=== PATIENT | male | born 1940 | race Caucasian/White ===

== ENCOUNTER 2018-06-21 02:12 | Inpatient (IN) | payer MEDICARE, BC ==
[2018-06-21] MEDS: Sodium Chloride 0.9% 10 ML Syringe FLUSH PRN (02:30)
--- NOTE | 2018-06-21 02:32 | EDM.PDOC ---
ED HPI GENERAL MEDICAL PROBLEM - General Chief Complaint: General Stated Complaint: AMBULANCE-FALL Time Seen by Provider: 06/21/18 02:15 Source of Information: Reports: Patient, EMS, EMS Notes Reviewed, RN, RN Notes Reviewed History Limitations: Reports: No Limitations - History of Present Illness INITIAL COMMENTS - FREE TEXT/NARRATIVE: Pt to ER per [facility] with c/o falls at home. Patient states on Wednesday at midnight he fell and laid on the floor until noon on Wednesday. He states he was unable to move at all. He states when he got up he had a fever of 100.5. He states he aches all over, but no specific pain from the falls. Patient states he fell again tonight behind the rocking chair in his apartment. Patient states he has had a cough, admits to hx of lung CA. Denies N/V/D. Denies use of blood thinners. Onset: Gradual Onset Date: 06/18/18 Generalized Pain Score (Numeric/FACES): 4 - Related Data Allergies Allergy/AdvReac Type Severity Reaction Status Date / Time enalapril Allergy Cough Verified 06/21/18 02:35 strawberry Allergy Hives Verified 06/21/18 02:35 Home Meds: Home Meds Cyanocobalamin (Vitamin B-12) [Vitamin B-12] 1,000 mcg PO DAILY 05/14/18 [ History] Latanoprost/Pf [Latanoprost 0.005% Eye Drop] 7.5 ml EYEBOTH DAILY 05/14/18 [ History] Losartan [Cozaar] 50 mg PO BEDTIME 05/14/18 [History] Lovastatin 40 mg PO BEDTIME 05/14/18 [History] Metoprolol Succinate [Toprol XL 100mg] 100 mg PO DAILY 05/14/18 [History] Prochlorperazine [Compazine] 10 mg PO DAILY 05/14/18 [History] Pyridoxine HCl [Vitamin B-6] 100 mg PO DAILY 05/14/18 [History] glipiZIDE [Glucotrol] 10 mg PO BID 05/14/18 [History] metFORMIN HCl [Metformin HCl] 1,000 mg PO BID 05/14/18 [History] Past Medical History HEENT History: Reports: Glaucoma Cardiovascular History: Reports: High Cholesterol, Hypertension Respiratory History: Reports: COPD Gastrointestinal History: Reports: None Genitourinary History: Reports: BPH Musculoskeletal History: Reports: None Neurological History: Reports: None Psychiatric History: Reports: None Endocrine/Metabolic History: Reports: Diabetes, Type II Hematologic History: Reports: B12 Deficiency Immunologic History: Reports: Immunosuppression Oncologic (Cancer) History: Reports: Lung Dermatologic History: Reports: None - Infectious Disease History Infectious Disease History: Reports: None - Past Surgical History HEENT Surgical History: Reports: None Cardiovascular Surgical History: Reports: None Respiratory Surgical History: Reports: None GI Surgical History: Reports: None Male Surgical History: Reports: None Endocrine Surgical History: Reports: None Neurological Surgical History: Reports: None Musculoskeletal Surgical History: Reports: None Oncologic Surgical History: Reports: None Dermatological Surgical History: Reports: None Social & Family History - Family History Family Medical History: Noncontributory - Caffeine Use Caffeine Use: Reports: Coffee, Soda, Tea ED ROS GENERAL - Review of Systems Review Of Systems: ROS reveals no pertinent complaints other than HPI. ED EXAM, GENERAL - Physical Exam Exam: See Below Exam Limited By: No Limitations General Appearance: Alert, WD/WN, No Apparent Distress Eye Exam: Bilateral Eye: EOMI, Normal Inspection Ears: Normal External Exam, Hearing Grossly Normal Nose: Normal Inspection Throat/Mouth: Normal Inspection, Normal Voice, No Airway Compromise Head: Atraumatic, Normocephalic Neck: Normal Inspection, Supple, Non-Tender, Full Range of Motion Respiratory/Chest: No Respiratory Distress, Decreased Breath Sounds, Crackles, Rales, Rhonchi Cardiovascular: Normal Peripheral Pulses, Tachycardia Peripheral Pulses: 1+: Radial (L), Radial (R) GI/Abdominal: Normal Bowel Sounds, Soft, Non-Tender (Male) Exam: Deferred Rectal (Males) Exam: Deferred Back Exam: Normal Inspection, Full Range of Motion Extremities: Normal Inspection, Normal Range of Motion, Non-Tender, No Pedal Edema, Normal Capillary Refill Neurological: Alert, Oriented, CN II-XII Intact, Normal Cognition, Normal Reflexes, No Motor/Sensory Deficits Psychiatric: Normal Affect, Normal Mood Skin Exam: Warm, Dry, Intact, Normal Color, No Rash Lymphatic: No Adenopathy EKG INTERPRETATION EKG Date: 06/21/18 Time: 02:19 Rhythm: Other (sinus tachycardia) Rate (Beats/Min): 120 [place]: RAD-Right [place] Deviation P-Wave: Present QRS: Wide ST-T: Normal QT: Normal Comparison: NA - No Prior EKG Course - Vital Signs Last Recorded V/S: Last Vital Signs Temp 99 F 06/21/18 02:15 Pulse 119 H 06/21/18 02:15 Resp 23 H 06/21/18 02:15 BP 153/81 H 06/21/18 02:15 Pulse Ox 90 L 06/21/18 02:15 - Orders/Labs/Meds Orders: Active Orders 24 hr Category Date Time Status EKG Documentation Completion [RC] STAT Care 06/21/18 02:21 Active Oxygen Therapy, ED [RC] ASDIRECTED Care 06/21/18 02:22 Active Peripheral IV Care [RC] . DIRECTED Care 06/21/18 02:23 Active Chest 1V Frontal [CR] Stat Exams 06/21/18 02:22 Taken UA RFX VICTOR MANUEL AND CULT IF INDIC [URIN] Stat Lab 06/21/18 02:46 Ordered Levofloxacin/Dextrose 5%-Water [Levaquin in D5W 500 MG/ Med 06/21/18 03:41 Active 100 ML] 500 mg Premix Bag 1 bag IV ONETIME Sodium Chloride 0.9% [Normal Saline] 1,000 ml Med 06/21/18 03:38 Active IV .BOLUS Sodium Chloride 0.9% [Saline Flush] Med 06/21/18 02:20 Active 10 ml FLUSH ASDIRECTED PRN Peripheral IV Insertion Adult [OM.PC] Stat Oth 06/21/18 02:21 Ordered Medication Orders Sodium Chloride (Normal Saline) 1,000 mls @ 999 mls/hr IV .BOLUS ONE Stop: 06/21/18 04:38 Last Admin: 06/21/18 03:50 Dose: 999 mls/hr Levofloxacin/Dextrose 500 mg/ (Premix) 100 mls @ 100 mls/hr IV ONETIME ONE Stop: 06/21/18 04:40 Last Admin: 06/21/18 03:51 Dose: 100 mls/hr Sodium Chloride (Saline Flush) 10 ml FLUSH ASDIRECTED PRN PRN Reason: Keep Vein Open Last Admin: 06/21/18 02:30 Dose: 10 ml Labs: Laboratory Tests 06/21/18 06/21/18 06/21/18 Range/Units 02:22 02:22 02:22 WBC 7.3 (5.0-10.0) 10^3/uL RBC 3.97 L (4.6-6.2) 10^6/uL Hgb 12.4 L (14.0-18.0) g/dL Hct 37.5 L (40.0-54.0) % MCV 94.5 (80-100) fL MCH 31.2 (27.0-34.0) pg MCHC 33.1 (33.0-35.0) g/dL Plt Count 177 (150-450) 10^3/uL Neut % (Auto) 85.5 H (42.2-75.2) % Lymph % (Auto) 3.8 L (20.5-50.1) % [place] % (Auto) 8.8 H (2-8) % Eos % (Auto) 1.8 (1.0-3.0) % Baso % (Auto) 0.1 (0.0-1.0) % PT 9.8 (9.0-12.0) SEC INR 1.0 (0.9-1.2) Sodium 135 (135-145) mmol/L Potassium 3.7 (3.6-5.0) mmol/L Chloride 103 (101-111) mmol/L Carbon Dioxide 21.0 (21.0-31.0) mmol/L Anion Gap 14.7 BUN 13 (7-18) mg/dL Creatinine 0.7 (0.6-1.3) mg/dL Est Cr Clr Drug Dosing 83.94 mL/min Estimated GFR (MDRD) > 60 BUN/Creatinine Ratio 18.57 Glucose 104 (74-105) mg/dL Lactic Acid (0.5-2.2) mmol/L Calcium 8.7 (8.4-10.2) mg/dl Total Bilirubin 0.8 (0.2-1.0) mg/dL AST 36 (10-42) IU/L ALT 30 (10-60) IU/L Alkaline Phosphatase 57 (42-121) IU/L Creatine Kinase (26-174) IU/L Creatine Kinase Index (0-2.4) % CK-MB (CK-2) (0.4-4.7) ng/mL Troponin I < 0.02 (0.00-0.02) ng/ml Total Protein 7.2 (6.7-8.2) g/dl Albumin 3.7 (3.2-5.5) g/dl Globulin 3.5 Albumin/Globulin Ratio 1.06 06/21/18 06/21/18 Range/Units 02:22 02:22 WBC (5.0-10.0) 10^3/uL RBC (4.6-6.2) 10^6/uL Hgb (14.0-18.0) g/dL Hct (40.0-54.0) % MCV (80-100) fL MCH (27.0-34.0) pg MCHC (33.0-35.0) g/dL Plt Count (150-450) 10^3/uL Neut % (Auto) (42.2-75.2) % Lymph % (Auto) (20.5-50.1) % [place] % (Auto) (2-8) % Eos % (Auto) (1.0-3.0) % Baso % (Auto) (0.0-1.0) % PT (9.0-12.0) SEC INR (0.9-1.2) Sodium (135-145) mmol/L Potassium (3.6-5.0) mmol/L Chloride (101-111) mmol/L Carbon Dioxide (21.0-31.0) mmol/L Anion Gap BUN (7-18) mg/dL Creatinine (0.6-1.3) mg/dL Est Cr Clr Drug Dosing mL/min Estimated GFR (MDRD) BUN/Creatinine Ratio Glucose (74-105) mg/dL Lactic Acid 3.7 H (0.5-2.2) mmol/L Calcium (8.4-10.2) mg/dl Total Bilirubin (0.2-1.0) mg/dL AST (10-42) IU/L ALT (10-60) IU/L Alkaline Phosphatase (42-121) IU/L Creatine Kinase 27 (26-174) IU/L Creatine Kinase Index 5.6 H (0-2.4) % CK-MB (CK-2) 1.50 (0.4-4.7) ng/mL Troponin I (0.00-0.02) ng/ml Total Protein (6.7-8.2) g/dl Albumin (3.2-5.5) g/dl Globulin Albumin/Globulin Ratio Meds: Medications Generic Name Dose Route Start Last Admin Trade Name Freq PRN Reason Stop Dose Admin Sodium Chloride 1,000 mls @ 999 mls/hr 06/21/18 03:38 06/21/18 03:50 Normal Saline IV 06/21/18 04:38 999 mls/hr .BOLUS ONE Administration Levofloxacin/Dextrose 500 mg/ 100 mls @ 100 mls/hr 06/21/18 03:41 06/21/18 03 :51 Premix IV 06/21/18 04:40 100 mls/hr ONETIME ONE Administration Sodium Chloride 10 ml 06/21/18 02:20 06/21/18 02:30 Saline Flush FLUSH 10 ml ASDIRECTED PRN Administration Keep Vein Open - Radiology Interpretation Free Text/Narrative:: Chest xray: FINDINGS: Tubes, catheters and devices: A right-sided chest port is seen with tip in the SVC. Lungs: There is diffuse mild vascular congestion. There is mild airspace disease within the right medial base. Pleural space: Unremarkable. No pleural effusion. No pneumothorax. Heart/Mediastinum: The heart is mildly enlarged. Bones/joints: Unremarkable. IMPRESSION: 1. There is mild diffuse vascular congestion. There is mild atelectasis versus infiltrate within the medial right base. 2. Mild cardiomegaly. Thank you for allowing us to participate in the care of your patient. See rad report - Re-Assessments/Exams Free Text/Narrative Re-Assessment/Exam: 06/21/18 03:49 Patient case discussed with Dr. Montilla who agreed to come to the ER to evaluate the patient. Departure - Departure Time of Disposition: 04:17 Disposition: Admitted As Inpatient 67 Condition: Fair Clinical Impression: Hypoxemia Pneumonia Qualifiers: Pneumonia type: due to unspecified organism Laterality: right Lung location: unspecified part of lung Qualified Code(s): J18.9 - Pneumonia, unspecified organism Lung cancer Qualifiers: Laterality: unspecified laterality Lung location: unspecified part of lung Qualified Code(s): C34.90 - Malignant neoplasm of unspecified part of unspecified bronchus or lung - Discharge Information *PRESCRIPTION DRUG MONITORING PROGRAM REVIEWED*: No *COPY OF PRESCRIPTION DRUG MONITORING REPORT IN PATIENT ELLEN: No Forms: ED Department Discharge - My Orders Last 24 Hours: My Active Orders 06/21/18 02:20 Sodium Chloride 0.9% [Saline Flush] 10 ml FLUSH ASDIRECTED PRN 06/21/18 02:21 EKG Documentation Completion [RC] STAT Peripheral IV Insertion Adult [OM.PC] Stat 06/21/18 02:22 Oxygen Therapy, ED [RC] ASDIRECTED Chest 1V Frontal [CR] Stat 06/21/18 02:23 Peripheral IV Care [RC] . DIRECTED 06/21/18 02:46 UA RFX VICTOR MANUEL AND CULT IF INDIC [URIN] Stat 06/21/18 03:38 Sodium Chloride 0.9% [Normal Saline] 1,000 ml IV .BOLUS 06/21/18 03:41 Levofloxacin/Dextrose 5%-Water [Levaquin in D5W 500 MG/100 ML] 500 mg Premix Bag 1 bag IV ONETIME - Assessment/Plan Last 24 Hours: My Active Orders 06/21/18 02:20 Sodium Chloride 0.9% [Saline Flush] 10 ml FLUSH ASDIRECTED PRN 06/21/18 02:21 EKG Documentation Completion [RC] STAT Peripheral IV Insertion Adult [OM.PC] Stat 06/21/18 02:22 Oxygen Therapy, ED [RC] ASDIRECTED Chest 1V Frontal [CR] Stat 06/21/18 02:23 Peripheral IV Care [RC] . DIRECTED 06/21/18 02:46 UA RFX VICTOR MANUEL AND CULT IF INDIC [URIN] Stat 06/21/18 03:38 Sodium Chloride 0.9% [Normal Saline] 1,000 ml IV .BOLUS 06/21/18 03:41 Levofloxacin/Dextrose 5%-Water [Levaquin in D5W 500 MG/100 ML] 500 mg Premix Bag 1 bag IV ONETIME
[2018-06-21 02:54] LABS: ANION GAP 14.7; CHLORIDE,CL 103 mmol/L (101-111); SODIUM,NA 135 mmol/L (135-145)
[2018-06-21] MEDS ORDERED: Sodium Chloride 0.9% 1,000 ML IV ONE (03:38)
[2018-06-21] MEDS ORDERED: Levofloxacin/Dextrose 5%-Water 500 MG in Premix Bag 1 BAG IV ONE (03:41)
--- NOTE | 2018-06-21 04:33 | PCM.HP ---
H&P History of Present Illness - General Date of Service: 06/21/18 Admit Problem/Dx: Presumptive pneumonia, falls, weakness - History of Present Illness Initial Comments - Free Text/Narative: Mr. 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 Patient reports that he initially started feeling weak Wednesday evening prior to that he was in his usual strength. On Wednesday night, patient went to sleep, on who could not get out of bed until Wednesday noon. Patient also measured his temperature event, and it was slightly elevated at 100.6. Patient had a fall last night and was on the floor for a few hours prior to coming to the ED. Patient was unable to stand up. Patient was seen for oncology on 05/27/2018 started on prednisone taper for chronic cough. in the ED, patient was afebrile, hemodynamically stable but slightly tachycardic. He was also found to be hypoxic requiring. Supplemental oxygen. Chest x-ray showed mild diffuse vascular congestion with mild atelectasis versus infiltrate within the medial right base, mild cardiomegaly. EKG showed sinus tachycardia. Lab was remarkable for anemia, elevated lactic acid. There is given Levaquin and IV fluids and was sent for further care. Where that he has bilateral leg pain but denied any back pain that is changed from his baseline (patient has chronic low back). Also denied any loss of bladder control or loss of bowel control. Generalized Pain Score (Numeric/FACES): 4 - Related Data Allergies/Adverse Reactions: Allergies Allergy/AdvReac Type Severity Reaction Status Date / Time enalapril Allergy Cough Verified 06/21/18 02:35 strawberry Allergy Hives Verified 06/21/18 02:35 Home Medications: Home Meds Cyanocobalamin (Vitamin B-12) [Vitamin B-12] 1,000 mcg PO DAILY 05/14/18 [ History] Latanoprost/Pf [Latanoprost 0.005% Eye Drop] 7.5 ml EYEBOTH DAILY 05/14/18 [ History] Losartan [Cozaar] 50 mg PO BEDTIME 05/14/18 [History] Lovastatin 40 mg PO BEDTIME 05/14/18 [History] Metoprolol Succinate [Toprol XL 100mg] 100 mg PO DAILY 05/14/18 [History] Prochlorperazine [Compazine] 10 mg PO DAILY 05/14/18 [History] Pyridoxine HCl [Vitamin B-6] 100 mg PO DAILY 05/14/18 [History] glipiZIDE [Glucotrol] 10 mg PO BID 05/14/18 [History] metFORMIN HCl [Metformin HCl] 1,000 mg PO BID 05/14/18 [History] predniSONE [Prednisone] 10 mg PO DAILY 06/21/18 [History] Past Medical History HEENT History: Reports: Glaucoma Cardiovascular History: Reports: High Cholesterol, Hypertension Respiratory History: Reports: COPD Gastrointestinal History: Reports: None Genitourinary History: Reports: BPH Musculoskeletal History: Reports: None Neurological History: Reports: None Psychiatric History: Reports: None Endocrine/Metabolic History: Reports: Diabetes, Type II Hematologic History: Reports: B12 Deficiency Immunologic History: Reports: Immunosuppression Oncologic (Cancer) History: Reports: Lung Dermatologic History: Reports: None - Infectious Disease History Infectious Disease History: Reports: None - Past Surgical History HEENT Surgical History: Reports: None Cardiovascular Surgical History: Reports: None Respiratory Surgical History: Reports: None GI Surgical History: Reports: None Male Surgical History: Reports: None Endocrine Surgical History: Reports: None Neurological Surgical History: Reports: None Musculoskeletal Surgical History: Reports: None Oncologic Surgical History: Reports: None Dermatological Surgical History: Reports: None Social & Family History - Family History Family Medical History: Noncontributory - Tobacco Use Smoking Status *Q: Former Smoker Used Tobacco, but Quit: No - Caffeine Use Caffeine Use: Reports: Coffee, Soda, Tea - Recreational Drug Use Recreational Drug Use: No H&P Review of Systems - Review of Systems: Review Of Systems: See Below General: Reports: Fever, Weakness, Weight Loss. Denies: Chills, Night Sweats Pulmonary: Reports: Cough. Denies: Shortness of Breath, Pleuritic Chest Pain, Sputum Cardiovascular: Denies: Chest Pain, Palpitations, Edema, Syncope Gastrointestinal: Reports: No Symptoms Genitourinary: Reports: No Symptoms Musculoskeletal: Reports: Leg Pain (Bilateral) Neurological: Reports: Weakness Exam - Exam Exam: See Below - Vital Signs Vital Signs: Last Vital Signs Temp 37.2 C 06/21/18 02:15 Pulse 119 H 06/21/18 02:15 Resp 23 H 06/21/18 02:15 BP 153/81 H 06/21/18 02:15 Pulse Ox 90 L 06/21/18 02:15 Weight: 78.471 kg - Exam General: Alert, Oriented Lungs: Rales, Wheezing (Scattered,) Cardiovascular: Regular Rhythm, Normal S1, Normal S2, Tachycardia GI/Abdominal Exam: Normal Bowel Sounds, Soft, Non-Tender Neuro Extensive - Mental Status: Alert, Oriented x3 Neuro Extensive - Motor, Sensory, Reflexes: Other (His bilateral upper extremity 5 out of 5, 4 out of 5 for lower extremities) Psychiatric: Alert, Normal Affect, Normal Mood - Patient Data Lab Results Last 24 hrs: Laboratory Results - last 24 hr 06/21/18 06/21/18 06/21/18 Range/Units 02:22 02:22 02:22 WBC 7.3 (5.0-10.0) 10^3/uL RBC 3.97 L (4.6-6.2) 10^6/uL Hgb 12.4 L (14.0-18.0) g/dL Hct 37.5 L (40.0-54.0) % MCV 94.5 (80-100) fL MCH 31.2 (27.0-34.0) pg MCHC 33.1 (33.0-35.0) g/dL Plt Count 177 (150-450) 10^3/uL Neut % (Auto) 85.5 H (42.2-75.2) % Lymph % (Auto) 3.8 L (20.5-50.1) % [place] % (Auto) 8.8 H (2-8) % Eos % (Auto) 1.8 (1.0-3.0) % Baso % (Auto) 0.1 (0.0-1.0) % PT 9.8 (9.0-12.0) SEC INR 1.0 (0.9-1.2) Sodium 135 (135-145) mmol/L Potassium 3.7 (3.6-5.0) mmol/L Chloride 103 (101-111) mmol/L Carbon Dioxide 21.0 (21.0-31.0) mmol/L Anion Gap 14.7 BUN 13 (7-18) mg/dL Creatinine 0.7 (0.6-1.3) mg/dL Est Cr Clr Drug Dosing 83.94 mL/min Estimated GFR (MDRD) > 60 BUN/Creatinine Ratio 18.57 Glucose 104 (74-105) mg/dL Lactic Acid (0.5-2.2) mmol/L Calcium 8.7 (8.4-10.2) mg/dl Total Bilirubin 0.8 (0.2-1.0) mg/dL AST 36 (10-42) IU/L ALT 30 (10-60) IU/L Alkaline Phosphatase 57 (42-121) IU/L Creatine Kinase (26-174) IU/L Creatine Kinase Index (0-2.4) % CK-MB (CK-2) (0.4-4.7) ng/mL Troponin I < 0.02 (0.00-0.02) ng/ml Total Protein 7.2 (6.7-8.2) g/dl Albumin 3.7 (3.2-5.5) g/dl Globulin 3.5 Albumin/Globulin Ratio 1.06 06/21/18 06/21/18 Range/Units 02:22 02:22 WBC (5.0-10.0) 10^3/uL RBC (4.6-6.2) 10^6/uL Hgb (14.0-18.0) g/dL Hct (40.0-54.0) % MCV (80-100) fL MCH (27.0-34.0) pg MCHC (33.0-35.0) g/dL Plt Count (150-450) 10^3/uL Neut % (Auto) (42.2-75.2) % Lymph % (Auto) (20.5-50.1) % [place] % (Auto) (2-8) % Eos % (Auto) (1.0-3.0) % Baso % (Auto) (0.0-1.0) % PT (9.0-12.0) SEC INR (0.9-1.2) Sodium (135-145) mmol/L Potassium (3.6-5.0) mmol/L Chloride (101-111) mmol/L Carbon Dioxide (21.0-31.0) mmol/L Anion Gap BUN (7-18) mg/dL Creatinine (0.6-1.3) mg/dL Est Cr Clr Drug Dosing mL/min Estimated GFR (MDRD) BUN/Creatinine Ratio Glucose (74-105) mg/dL Lactic Acid 3.7 H (0.5-2.2) mmol/L Calcium (8.4-10.2) mg/dl Total Bilirubin (0.2-1.0) mg/dL AST (10-42) IU/L ALT (10-60) IU/L Alkaline Phosphatase (42-121) IU/L Creatine Kinase 27 (26-174) IU/L Creatine Kinase Index 5.6 H (0-2.4) % CK-MB (CK-2) 1.50 (0.4-4.7) ng/mL Troponin I (0.00-0.02) ng/ml Total Protein (6.7-8.2) g/dl Albumin (3.2-5.5) g/dl Globulin Albumin/Globulin Ratio Result Diagrams: 06/21/18 02:22 06/21/18 02:22 Jourdan Results Last 24 hrs: Microbiology 06/21/18 02:30 Influenza Type A Antigen Screen - Final Nasal, Unspecified NEGATIVE INFLUENZA A VIRUS AG Influenza Type B Antigen Screen - Final NEGATIVE INFLUENZA B VIRUS AG - Problem List (1) Non-small cell lung cancer SNOMED Code(s): 033090879 ICD Code: C34.90 - MALIGNANT NEOPLASM OF UNSP PART OF UNSP BRONCHUS OR LUNG Status: Acute Current Visit: Yes (2) Respiratory failure with hypoxia SNOMED Code(s): 62937171476879934 ICD Code: J96.91 - RESPIRATORY FAILURE, UNSPECIFIED WITH HYPOXIA Status: Acute Current Visit: Yes (3) Type 2 diabetes mellitus SNOMED Code(s): 13548112 ICD Code: E11.9 - TYPE 2 DIABETES MELLITUS WITHOUT COMPLICATIONS Status: Acute Current Visit: Yes (4) Hyperlipidemia SNOMED Code(s): 19173548 ICD Code: E78.5 - HYPERLIPIDEMIA, UNSPECIFIED Status: Acute Current Visit : Yes (5) Hypertension SNOMED Code(s): 55171731 ICD Code: I10 - ESSENTIAL (PRIMARY) HYPERTENSION Status: Acute Current Visit: Yes (6) Pneumonia SNOMED Code(s): 802701564 ICD Code: J18.9 - PNEUMONIA, UNSPECIFIED ORGANISM Status: Acute Current Visit: No Qualifiers: Pneumonia type: due to unspecified organism Laterality: right Lung location: unspecified part of lung Qualified Code(s): J18.9 - Pneumonia, unspecified organism Problem List Initiated/Reviewed/Updated: Yes Orders Last 24hrs: Active Orders 24 hr Category Date Time Status EKG Documentation Completion [RC] STAT Care 06/21/18 02:21 Active Oxygen Therapy, ED [RC] ASDIRECTED Care 06/21/18 02:22 Active Peripheral IV Care [RC] . DIRECTED Care 06/21/18 02:23 Active Chest 1V Frontal [CR] Stat Exams 06/21/18 02:22 Taken UA RFX JOURDAN AND CULT IF INDIC [URIN] Stat Lab 06/21/18 02:46 Ordered Levofloxacin/Dextrose 5%-Water [Levaquin in D5W 500 MG/ Med 06/21/18 03:41 Active 100 ML] 500 mg Premix Bag 1 bag IV ONETIME Sodium Chloride 0.9% [Normal Saline] 1,000 ml Med 06/21/18 03:38 Active IV .BOLUS Sodium Chloride 0.9% [Saline Flush] Med 06/21/18 02:20 Active 10 ml FLUSH ASDIRECTED PRN Peripheral IV Insertion Adult [OM.PC] Stat Oth 06/21/18 02:21 Ordered Medication Orders Sodium Chloride (Normal Saline) 1,000 mls @ 999 mls/hr IV .BOLUS ONE Stop: 06/21/18 04:38 Last Admin: 06/21/18 03:50 Dose: 999 mls/hr Levofloxacin/Dextrose 500 mg/ (Premix) 100 mls @ 100 mls/hr IV ONETIME ONE Stop: 06/21/18 04:40 Last Admin: 06/21/18 03:51 Dose: 100 mls/hr Sodium Chloride (Saline Flush) 10 ml FLUSH ASDIRECTED PRN PRN Reason: Keep Vein Open Last Admin: 06/21/18 02:30 Dose: 10 ml Assessment/Plan Comment:: Mr. 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 Presumptive pneumonia will treat patient course of Levaquin Continue prednisone taper as is Hypoxic respiratory failure Could be related to pneumonia/cancer We'll place patient on supplemental oxygen Fall PT/OT Type 2 diabetes Sliding-scale insulin Hold oral hypoglycemic agents glucose checks before meals and at bedtime Hyperlipidemia Continue home lovastatin Hypertension Continue home medications Lactic acidosis Could be related to dehydration versus sepsis though sepsis is less likely given lack of hemodynamic instability or elevated white count We'll recheck after hydration DVT prophylaxis Lovenox subcutaneous
[2018-06-21] MEDS ORDERED: Lactated Ringers 1,000 ML IV SCH (05:15)
[2018-06-21] MEDS ORDERED: Insulin Aspart 100 Units/ML 3 ML Pen SUBCUT SCH (08:00)
[2018-06-21 08:31] LABS: ANION GAP 14.6; CHLORIDE,CL 103 mmol/L (101-111); SODIUM,NA 134 mmol/L (135-145)
[2018-06-21] MEDS: Vitamin B6-pyridOXINE 100 MG Tab PO SCH (08:49)
[2018-06-21] MEDS: predniSONE 10 MG Tab PO SCH (08:49)
[2018-06-21] MEDS: Metoprolol Succinate 50 MG Tab.ER PO SCH (08:49)
[2018-06-21] MEDS: Enoxaparin 40 MG/0.4 ML Syringe SUBCUT SCH (08:50)
[2018-06-21] MEDS ORDERED: Cyanocobalamin (Vitamin B12) 100 MCG Tab PO SCH (09:00)
[2018-06-21] MEDS: Insulin Lispro 100 Units/ML 3 ML Vial SUBCUT SCH ×4 (09:39→20:56)
[2018-06-21] MEDS: LOVASTATIN 40 MG PO SCH (18:29)
[2018-06-21] MEDS: Latanoprost 0.005% Ophth Soln 2.5 ML Bottle EYEBOTH SCH (20:58)
[2018-06-21] MEDS: Losartan 50 MG Tab PO SCH (21:31)
[2018-06-22] MEDS ORDERED: Acetaminophen 325 MG Tab PO PRN (03:20)
[2018-06-22] MEDS ORDERED: Levofloxacin/Dextrose 5%-Water 750 MG in Premix Bag 1 BAG IV SCH (07:00)
[2018-06-22 07:28] LABS: ANION GAP 14.8; CHLORIDE,CL 101 mmol/L (101-111); SODIUM,NA 135 mmol/L (135-145)
[2018-06-22] MEDS: Levofloxacin/Dextrose 5%-Water 750 MG in Premix Bag 1 BAG IV SCH (08:04)
[2018-06-22] MEDS: Sodium Chloride 0.9% 10 ML Syringe FLUSH PRN ×2 (08:08→15:35)
[2018-06-22] MEDS: Insulin Lispro 100 Units/ML 3 ML Vial SUBCUT SCH ×4 (08:56→21:23)
[2018-06-22] MEDS: predniSONE 10 MG Tab PO SCH (08:57)
[2018-06-22] MEDS: Metoprolol Succinate 50 MG Tab.ER PO SCH (08:57)
[2018-06-22] MEDS: Vitamin B6-pyridOXINE 100 MG Tab PO SCH (08:57)
[2018-06-22] MEDS: Enoxaparin 40 MG/0.4 ML Syringe SUBCUT SCH (08:58)
[2018-06-22] MEDS: CYANOCOBALAMIN 1000 MCG PO SCH (08:59)
--- NOTE | 2018-06-22 10:16 | PCM.PN ---
- General Info Date of Service: 06/22/18 Admission Dx/Problem (Free Text): Presumptive pneumonia, falls, weakness Subjective Update: The patient was walking with therapy, and he became more hypoxic requiring increase in supplemental oxygen to 3 L. Patient does not require oxygen at baseline. He also took long time to recover. On interview, patient denying worsening cough, change in bowel habits or urinary habits. He can't recall any sudden increase in shortness of breath recently. He denies any pain. Patient will need to like to take a break from chemotherapy. - Review of Systems Pulmonary: Reports: Shortness of Breath, Cough Cardiovascular: Reports: No Symptoms Gastrointestinal: Reports: No Symptoms Genitourinary: Reports: No Symptoms Musculoskeletal: Reports: No Symptoms Neurological: Reports: No Symptoms - Patient Data Vitals - Most Recent: Last Vital Signs Temp 37.0 C 06/22/18 04:00 Pulse 68 06/22/18 08:57 Resp 20 06/22/18 08:00 BP 125/61 06/22/18 08:57 Pulse Ox 91 L 06/22/18 08:00 Weight - Most Recent: 78.29 kg I&O - Last 24 Hours: Intake & Output 06/21/18 06/22/18 06/22/18 22:59 06:59 14:59 Intake Total 1860 250 710 Output Total 1200 Balance 660 250 710 Lab Results Last 24 Hours: Laboratory Results - last 24 hr 06/21/18 06/21/18 06/21/18 Range/Units 07:44 10:59 11:00 WBC (5.0-10.0) 10^3/uL RBC (4.6-6.2) 10^6/uL Hgb (14.0-18.0) g/dL Hct (40.0-54.0) % MCV (80-100) fL MCH (27.0-34.0) pg MCHC (33.0-35.0) g/dL Plt Count (150-450) 10^3/uL Neut % (Auto) (42.2-75.2) % Lymph % (Auto) (20.5-50.1) % [place] % (Auto) (2-8) % Eos % (Auto) (1.0-3.0) % Baso % (Auto) (0.0-1.0) % Sodium (135-145) mmol/L Potassium (3.6-5.0) mmol/L Chloride (101-111) mmol/L Carbon Dioxide (21.0-31.0) mmol/L Anion Gap BUN (7-18) mg/dL Creatinine (0.6-1.3) mg/dL Est Cr Clr Drug Dosing mL/min Estimated GFR (MDRD) BUN/Creatinine Ratio Glucose (74-105) mg/dL POC Glucose 173 H 175 H (83-110) mg/dl Calcium (8.4-10.2) mg/dl Total Bilirubin (0.2-1.0) mg/dL AST (10-42) IU/L ALT (10-60) IU/L Alkaline Phosphatase (42-121) IU/L Total Protein (6.7-8.2) g/dl Albumin (3.2-5.5) g/dl Globulin Albumin/Globulin Ratio Urine Color Yellow (YELLOW) Urine Appearance Clear (CLEAR) Urine pH 5.5 (5.0-9.0) Ur Specific [place] 1.015 (1.005-1.030) Urine Protein Negative (NEGATIVE) Urine Glucose (UA) 100 H (NEGATIVE) Urine Ketones Negative (NEGATIVE) Urine Occult Blood Negative (NEGATIVE) Urine Nitrite Negative (NEGATIVE) Urine Bilirubin Negative (NEGATIVE) Urine Urobilinogen 1.0 (0.2-1.0) mg/dL Ur Leukocyte Esterase Negative (NEGATIVE) 06/21/18 06/21/18 06/22/18 Range/Units 16:34 20:55 06:55 WBC 5.0 (5.0-10.0) 10^3/uL RBC 3.60 L (4.6-6.2) 10^6/uL Hgb 11.0 L (14.0-18.0) g/dL Hct 33.8 L (40.0-54.0) % MCV 93.9 (80-100) fL MCH 30.6 (27.0-34.0) pg MCHC 32.5 L (33.0-35.0) g/dL Plt Count 203 (150-450) 10^3/uL Neut % (Auto) 79.2 H (42.2-75.2) % Lymph % (Auto) 6.3 L (20.5-50.1) % [place] % (Auto) 11.7 H (2-8) % Eos % (Auto) 2.4 (1.0-3.0) % Baso % (Auto) 0.4 (0.0-1.0) % Sodium (135-145) mmol/L Potassium (3.6-5.0) mmol/L Chloride (101-111) mmol/L Carbon Dioxide (21.0-31.0) mmol/L Anion Gap BUN (7-18) mg/dL Creatinine (0.6-1.3) mg/dL Est Cr Clr Drug Dosing mL/min Estimated GFR (MDRD) BUN/Creatinine Ratio Glucose (74-105) mg/dL POC Glucose 212 H 149 H (83-110) mg/dl Calcium (8.4-10.2) mg/dl Total Bilirubin (0.2-1.0) mg/dL AST (10-42) IU/L ALT (10-60) IU/L Alkaline Phosphatase (42-121) IU/L Total Protein (6.7-8.2) g/dl Albumin (3.2-5.5) g/dl Globulin Albumin/Globulin Ratio Urine Color (YELLOW) Urine Appearance (CLEAR) Urine pH (5.0-9.0) Ur Specific [place] (1.005-1.030) Urine Protein (NEGATIVE) Urine Glucose (UA) (NEGATIVE) Urine Ketones (NEGATIVE) Urine Occult Blood (NEGATIVE) Urine Nitrite (NEGATIVE) Urine Bilirubin (NEGATIVE) Urine Urobilinogen (0.2-1.0) mg/dL Ur Leukocyte Esterase (NEGATIVE) 06/22/18 06/22/18 Range/Units 06:55 07:56 WBC (5.0-10.0) 10^3/uL RBC (4.6-6.2) 10^6/uL Hgb (14.0-18.0) g/dL Hct (40.0-54.0) % MCV (80-100) fL MCH (27.0-34.0) pg MCHC (33.0-35.0) g/dL Plt Count (150-450) 10^3/uL Neut % (Auto) (42.2-75.2) % Lymph % (Auto) (20.5-50.1) % [place] % (Auto) (2-8) % Eos % (Auto) (1.0-3.0) % Baso % (Auto) (0.0-1.0) % Sodium 135 (135-145) mmol/L Potassium 3.8 (3.6-5.0) mmol/L Chloride 101 (101-111) mmol/L Carbon Dioxide 23.0 (21.0-31.0) mmol/L Anion Gap 14.8 BUN 10 (7-18) mg/dL Creatinine 0.5 L (0.6-1.3) mg/dL Est Cr Clr Drug Dosing 117.51 mL/min Estimated GFR (MDRD) > 60 BUN/Creatinine Ratio 20.00 Glucose 184 H (74-105) mg/dL POC Glucose 180 H (83-110) mg/dl Calcium 8.4 (8.4-10.2) mg/dl Total Bilirubin 1.0 (0.2-1.0) mg/dL AST 28 (10-42) IU/L ALT 25 (10-60) IU/L Alkaline Phosphatase 48 (42-121) IU/L Total Protein 6.4 L (6.7-8.2) g/dl Albumin 3.2 (3.2-5.5) g/dl Globulin 3.2 Albumin/Globulin Ratio 1.00 Urine Color (YELLOW) Urine Appearance (CLEAR) Urine pH (5.0-9.0) Ur Specific [place] (1.005-1.030) Urine Protein (NEGATIVE) Urine Glucose (UA) (NEGATIVE) Urine Ketones (NEGATIVE) Urine Occult Blood (NEGATIVE) Urine Nitrite (NEGATIVE) Urine Bilirubin (NEGATIVE) Urine Urobilinogen (0.2-1.0) mg/dL Ur Leukocyte Esterase (NEGATIVE) Med Orders - Current: Current Medications Acetaminophen (Tylenol) 650 mg PO Q6H PRN PRN Reason: Pain Last Admin: 06/22/18 03:41 Dose: 650 mg Enoxaparin Sodium (Lovenox) 40 mg SUBCUT DAILY [facility] Last Admin: 06/22/18 08:58 Dose: 40 mg Levofloxacin/Dextrose 750 mg/ (Premix) 150 mls @ 100 mls/hr IV Q24H [facility] Last Infusion: 06/22/18 10:04 Dose: Infused Insulin Human Lispro (Humalog) 0 unit SUBCUT WITHMEALSANDBED [facility]; Protocol Last Admin: 06/22/18 08:56 Dose: 1 unit Latanoprost (Xalatan 0.005% Ophth Soln) 0 ml EYEBOTH BEDTIME [facility] Last Admin: 06/21/18 20:58 Dose: 1 drop Losartan Potassium (Cozaar) 50 mg PO BEDTIME [facility] Last Admin: 06/21/18 21:31 Dose: Not Given Metoprolol Succinate (Toprol Xl) 100 mg PO DAILY [facility] Last Admin: 06/22/18 08:57 Dose: 100 mg Lovastatin 40 Mg (Pt's Own Med) 0 each PO WITHDINNER [facility] Last Admin: 06/21/18 18:29 Dose: 1 each Cyanocobalamin ( Vitamin B12) 1000 Mcg Tab Pt's Own Med 0 each PO DAILY [facility] Last Admin: 06/22/18 08:59 Dose: 1 each Prednisone (Prednisone) 10 mg PO DAILY [facility] Last Admin: 06/22/18 08:57 Dose: 10 mg Pyridoxine HCl (Vitamin B6-Pyridoxine) 100 mg PO DAILY [facility] Last Admin: 06/22/18 08:57 Dose: 100 mg Sodium Chloride (Saline Flush) 10 ml FLUSH ASDIRECTED PRN PRN Reason: Keep Vein Open Last Admin: 06/22/18 08:08 Dose: 10 ml Discontinued Medications Cyanocobalamin (Vitamin B12) 1,000 mcg PO DAILY [facility] Last Admin: 06/21/18 09:03 Dose: Not Given Sodium Chloride (Normal Saline) 1,000 mls @ 999 mls/hr IV .BOLUS ONE Stop: 06/21/18 04:38 Last Admin: 06/21/18 03:50 Dose: 999 mls/hr Levofloxacin/Dextrose 500 mg/ (Premix) 100 mls @ 100 mls/hr IV ONETIME ONE Stop: 06/21/18 04:40 Last Admin: 06/21/18 03:51 Dose: 100 mls/hr Lactated Ringer's (Ringers, Lactated) 1,000 mls @ 100 mls/hr IV ASDIRECTED [facility] Last Admin: 06/21/18 05:20 Dose: 100 mls/hr Levofloxacin/Dextrose 750 mg/ (Premix) 150 mls @ 100 mls/hr IV Q24H [facility] Insulin Aspart (Novolog) 0 unit SUBCUT WITHMEALSANDBED [facility]; Protocol Last Admin: 06/21/18 09:02 Dose: Not Given - Exam General: Alert, Oriented Lungs: Normal Respiratory Effort, Rales, Other (tachypneic) Cardiovascular: Regular Rate, Regular Rhythm GI/Abdominal Exam: Normal Bowel Sounds, Soft, Non-Tender Extremities: No Pedal Edema Skin: Warm, Dry, Intact Neurological: No New Focal Deficit - Problem List & Annotations (1) Non-small cell lung cancer SNOMED Code(s): 894617037 Code(s): C34.90 - MALIGNANT NEOPLASM OF UNSP PART OF UNSP BRONCHUS OR LUNG Status: Acute Current Visit: Yes (2) Respiratory failure with hypoxia SNOMED Code(s): 97362091934326337 Code(s): J96.91 - RESPIRATORY FAILURE, UNSPECIFIED WITH HYPOXIA Status: Acute Current Visit: Yes (3) Type 2 diabetes mellitus SNOMED Code(s): 90400903 Code(s): E11.9 - TYPE 2 DIABETES MELLITUS WITHOUT COMPLICATIONS Status: Acute Current Visit: Yes (4) Hyperlipidemia SNOMED Code(s): 35035279 Code(s): E78.5 - HYPERLIPIDEMIA, UNSPECIFIED Status: Acute Current Visit : Yes (5) Hypertension SNOMED Code(s): 24955100 Code(s): I10 - ESSENTIAL (PRIMARY) HYPERTENSION Status: Acute Current Visit: Yes (6) Pneumonia SNOMED Code(s): 393140904 Code(s): J18.9 - PNEUMONIA, UNSPECIFIED ORGANISM Status: Acute Current Visit: No Qualifiers: Pneumonia type: due to unspecified organism Laterality: right Lung location: unspecified part of lung Qualified Code(s): J18.9 - Pneumonia, unspecified organism - Problem List Review Problem List Initiated/Reviewed/Updated: Yes - My Orders Last 24 Hours: My Active Orders 06/21/18 11:27 Incentive Spirometry [RT Incentive Spirometry] [RC] Q2HWA 06/21/18 11:32 Communication Order [RC] DAILY 06/21/18 15:06 Patient's Own Medication [Ptom] 0 each PO DAILY 06/21/18 18:00 Patient's Own Medication [Ptom] 0 each PO WITHDINNER 06/21/18 21:00 Latanoprost [Xalatan 0.005% Ophth Soln] 0 ml EYEBOTH BEDTIME Losartan [Cozaar] 50 mg PO BEDTIME 06/22/18 03:20 Acetaminophen [Tylenol] 650 mg PO Q6H PRN 06/22/18 08:00 Levofloxacin/Dextrose 5%-Water [Levaquin in D5W 750 MG/150 ML] 750 mg Premix Bag 1 bag IV Q24H 06/23/18 07:00 CBC WITH AUTO DIFF [HEME] DAILY COMPREHENSIVE METABOLIC PN,CMP [CHEM] DAILY 06/24/18 07:00 CBC WITH AUTO DIFF [HEME] DAILY COMPREHENSIVE METABOLIC PN,CMP [CHEM] DAILY 06/25/18 07:00 CBC WITH AUTO DIFF [HEME] DAILY COMPREHENSIVE METABOLIC PN,CMP [CHEM] DAILY - Plan Plan:: Mr. 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 Presumptive pneumonia will treat patient course of Levaquin Continue prednisone taper as is Hypoxic respiratory failure Could be related to pneumonia/cancer We'll place patient on supplemental oxygen will check for PE Fall PT/OT Type 2 diabetes Sliding-scale insulin Hold oral hypoglycemic agents glucose checks before meals and at bedtime Hyperlipidemia Continue home lovastatin Hypertension Continue home medications Lactic acidosis resolved DVT prophylaxis Lovenox subcutaneous
[2018-06-22] MEDS ORDERED: Iopamidol 755 Mg/ML 100 ML Bottle IVPUSH ONE (12:35)
[2018-06-22] MEDS ORDERED: Potassium Chloride 10 MEQ Tab.ER PO ONE (14:43)
[2018-06-22] MEDS ORDERED: Furosemide 40 MG/4 ML VIAL IVPUSH ONE (15:00)
[2018-06-22] MEDS: LOVASTATIN 40 MG PO SCH (17:43)
[2018-06-22] MEDS: Losartan 50 MG Tab PO SCH (21:13)
[2018-06-22] MEDS: Latanoprost 0.005% Ophth Soln 2.5 ML Bottle EYEBOTH SCH (21:13)
[2018-06-23 07:59] LABS: ANION GAP 15.2; CHLORIDE,CL 100 mmol/L (101-111); SODIUM,NA 135 mmol/L (135-145)
[2018-06-23] MEDS: predniSONE 10 MG Tab PO SCH (08:26)
[2018-06-23] MEDS: Metoprolol Succinate 50 MG Tab.ER PO SCH (08:27)
[2018-06-23] MEDS: Vitamin B6-pyridOXINE 100 MG Tab PO SCH (08:28)
[2018-06-23] MEDS: CYANOCOBALAMIN 1000 MCG PO SCH (08:28)
[2018-06-23] MEDS: Enoxaparin 40 MG/0.4 ML Syringe SUBCUT SCH (08:29)
[2018-06-23] MEDS: Insulin Lispro 100 Units/ML 3 ML Vial SUBCUT SCH ×4 (08:30→22:29)
[2018-06-23] MEDS: Levofloxacin/Dextrose 5%-Water 750 MG in Premix Bag 1 BAG IV SCH (08:32)
--- NOTE | 2018-06-23 11:15 | PCM.PN ---
- General Info Date of Service: 06/23/18 Admission Dx/Problem (Free Text): Presumptive pneumonia, falls, weakness Subjective Update: Patient seen and examined today at the site. He has no complaint today. No acute appointment events. Still on supplemental oxygen. I requested to admit patient off as tolerated. He will also have walking decided today to see if he will require home oxygen. Patient otherwise is doing well Functional Status: Reports: Pain Controlled, Tolerating Diet, Ambulating - Review of Systems General: Reports: No Symptoms HEENT: Reports: No Symptoms Pulmonary: Reports: No Symptoms Cardiovascular: Reports: No Symptoms Gastrointestinal: Reports: No Symptoms Genitourinary: Reports: No Symptoms Musculoskeletal: Reports: No Symptoms Skin: Reports: No Symptoms Neurological: Reports: No Symptoms Psychiatric: Reports: No Symptoms - Patient Data Vitals - Most Recent: Last Vital Signs Temp 98.2 F 06/23/18 07:28 Pulse 110 H 06/23/18 08:27 Resp 16 06/23/18 07:28 BP 114/61 06/23/18 08:27 Pulse Ox 91 L 06/23/18 07:28 Weight - Most Recent: 172 lb 9.6 oz I&O - Last 24 Hours: Intake & Output 06/22/18 06/23/18 06/23/18 22:59 06:59 14:59 Intake Total 620 150 450 Output Total 800 450 Balance -180 -300 450 Lab Results Last 24 Hours: Laboratory Results - last 24 hr 06/22/18 06/22/18 06/22/18 Range/Units 11:27 16:48 20:45 WBC (5.0-10.0) 10^3/uL RBC (4.6-6.2) 10^6/uL Hgb (14.0-18.0) g/dL Hct (40.0-54.0) % MCV (80-100) fL MCH (27.0-34.0) pg MCHC (33.0-35.0) g/dL Plt Count (150-450) 10^3/uL Neut % (Auto) (42.2-75.2) % Lymph % (Auto) (20.5-50.1) % [place] % (Auto) (2-8) % Eos % (Auto) (1.0-3.0) % Baso % (Auto) (0.0-1.0) % Sodium (135-145) mmol/L Potassium (3.6-5.0) mmol/L Chloride (101-111) mmol/L Carbon Dioxide (21.0-31.0) mmol/L Anion Gap BUN (7-18) mg/dL Creatinine (0.6-1.3) mg/dL Est Cr Clr Drug Dosing mL/min Estimated GFR (MDRD) BUN/Creatinine Ratio Glucose (74-105) mg/dL POC Glucose 254 H 263 H 226 H (83-110) mg/dl Calcium (8.4-10.2) mg/dl Total Bilirubin (0.2-1.0) mg/dL AST (10-42) IU/L ALT (10-60) IU/L Alkaline Phosphatase (42-121) IU/L Total Protein (6.7-8.2) g/dl Albumin (3.2-5.5) g/dl Globulin Albumin/Globulin Ratio 06/23/18 06/23/18 06/23/18 Range/Units 06:25 06:25 07:43 WBC 5.2 (5.0-10.0) 10^3/uL RBC 3.68 L (4.6-6.2) 10^6/uL Hgb 11.1 L (14.0-18.0) g/dL Hct 34.4 L (40.0-54.0) % MCV 93.5 (80-100) fL MCH 30.2 (27.0-34.0) pg MCHC 32.3 L (33.0-35.0) g/dL Plt Count 256 (150-450) 10^3/uL Neut % (Auto) 80.2 H (42.2-75.2) % Lymph % (Auto) 3.9 L (20.5-50.1) % [place] % (Auto) 13.2 H (2-8) % Eos % (Auto) 2.3 (1.0-3.0) % Baso % (Auto) 0.4 (0.0-1.0) % Sodium 135 (135-145) mmol/L Potassium 4.2 (3.6-5.0) mmol/L Chloride 100 L (101-111) mmol/L Carbon Dioxide 24.0 (21.0-31.0) mmol/L Anion Gap 15.2 BUN 14 (7-18) mg/dL Creatinine 0.5 L (0.6-1.3) mg/dL Est Cr Clr Drug Dosing 117.51 mL/min Estimated GFR (MDRD) > 60 BUN/Creatinine Ratio 28.00 Glucose 180 H (74-105) mg/dL POC Glucose 164 H (83-110) mg/dl Calcium 8.6 (8.4-10.2) mg/dl Total Bilirubin 0.8 (0.2-1.0) mg/dL AST 28 (10-42) IU/L ALT 25 (10-60) IU/L Alkaline Phosphatase 48 (42-121) IU/L Total Protein 5.7 L (6.7-8.2) g/dl Albumin 3.0 L (3.2-5.5) g/dl Globulin 2.7 Albumin/Globulin Ratio 1.11 Med Orders - Current: Current Medications Acetaminophen (Tylenol) 650 mg PO Q6H PRN PRN Reason: Pain Last Admin: 06/22/18 03:41 Dose: 650 mg Enoxaparin Sodium (Lovenox) 40 mg SUBCUT DAILY [facility] Last Admin: 06/23/18 08:29 Dose: 40 mg Insulin Human Lispro (Humalog) 0 unit SUBCUT WITHMEALSANDBED [facility]; Protocol Last Admin: 06/23/18 08:30 Dose: 1 unit Latanoprost (Xalatan 0.005% Ophth Soln) 0 ml EYEBOTH BEDTIME [facility] Last Admin: 06/22/18 21:13 Dose: 1 drop Levofloxacin (Levaquin) 750 mg PO DAILY [facility] Losartan Potassium (Cozaar) 50 mg PO BEDTIME [facility] Last Admin: 06/22/18 21:13 Dose: 50 mg Metoprolol Succinate (Toprol Xl) 100 mg PO DAILY [facility] Last Admin: 06/23/18 08:27 Dose: 100 mg Lovastatin 40 Mg (Pt's Own Med) 0 each PO WITHDINNER [facility] Last Admin: 06/22/18 17:43 Dose: 1 each Cyanocobalamin ( Vitamin B12) 1000 Mcg Tab Pt's Own Med 0 each PO DAILY [facility] Last Admin: 06/23/18 08:28 Dose: 1 each Prednisone (Prednisone) 10 mg PO DAILY [facility] Last Admin: 06/23/18 08:26 Dose: 10 mg Pyridoxine HCl (Vitamin B6-Pyridoxine) 100 mg PO DAILY [facility] Last Admin: 06/23/18 08:28 Dose: 100 mg Sodium Chloride (Saline Flush) 10 ml FLUSH ASDIRECTED PRN PRN Reason: Keep Vein Open Last Admin: 06/22/18 15:35 Dose: 10 ml Discontinued Medications Cyanocobalamin (Vitamin B12) 1,000 mcg PO DAILY [facility] Last Admin: 06/21/18 09:03 Dose: Not Given Furosemide (Lasix) 40 mg IVPUSH NOW ONE Stop: 06/22/18 15:01 Last Admin: 06/22/18 15:34 Dose: 40 mg Sodium Chloride (Normal Saline) 1,000 mls @ 999 mls/hr IV .BOLUS ONE Stop: 06/21/18 04:38 Last Admin: 06/21/18 03:50 Dose: 999 mls/hr Levofloxacin/Dextrose 500 mg/ (Premix) 100 mls @ 100 mls/hr IV ONETIME ONE Stop: 06/21/18 04:40 Last Admin: 06/21/18 03:51 Dose: 100 mls/hr Lactated Ringer's (Ringers, Lactated) 1,000 mls @ 100 mls/hr IV ASDIRECTED [facility] Last Admin: 06/21/18 05:20 Dose: 100 mls/hr Levofloxacin/Dextrose 750 mg/ (Premix) 150 mls @ 100 mls/hr IV Q24H [facility] Levofloxacin/Dextrose 750 mg/ (Premix) 150 mls @ 100 mls/hr IV Q24H [facility] Last Infusion: 06/23/18 10:05 Dose: Infused Insulin Aspart (Novolog) 0 unit SUBCUT WITHMEALSANDBED [facility]; Protocol Last Admin: 06/21/18 09:02 Dose: Not Given Iopamidol (Isovue-370 (76%)) 100 ml IVPUSH ONETIME ONE Stop: 06/22/18 12:36 Last Admin: 06/22/18 13:24 Dose: 68 ml Potassium Chloride (Klor-Con 10) 40 meq PO ONETIME ONE Stop: 06/22/18 14:44 Last Admin: 06/22/18 15:34 Dose: 40 meq - Exam Quality Assessment: Supplemental Oxygen General: Alert, Oriented HEENT: Pupils Equal, Pupils Reactive, EOMI, Mucous Membr. Moist/[place]: Supple Lungs: Clear to Auscultation, Normal Respiratory Effort Cardiovascular: Regular Rate, Regular Rhythm GI/Abdominal Exam: Normal Bowel Sounds, Soft, Non-Tender, No Organomegaly, No Distention, No Abnormal Bruit, No Mass, Pelvis Stable (Male) Exam: No Hernia, Normal Inspection, Normal Prostate, Circumcised Back Exam: Normal Inspection, Full Range of Motion Extremities: Normal Inspection, Normal Range of Motion, Non-Tender, No Pedal Edema, Normal Capillary Refill Skin: Warm, Dry, Intact Wound/Incisions: Healing Well Neurological: No New Focal Deficit Psy/Mental Status: Alert, Normal Affect, Normal Mood - Problem List Review Problem List Initiated/Reviewed/Updated: Yes - My Orders Last 24 Hours: My Active Orders 06/23/18 10:21 Communication Order [RC] ROUTINE 6 Minute Walk Test [RT Physical Performance Test] [RESPCARE] Routine 06/24/18 09:00 levoFLOXacin [Levaquin] 750 mg PO DAILY - Plan Plan:: Mr. 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 Presumptive pneumonia PO Levaquin Continue prednisone taper Hypoxic respiratory failure Could be related to pneumonia/cancer Continue supplemental oxygen and wean off as tolerated For walking desaturation test today Fall PT/OT Type 2 diabetes Sliding-scale insulin Hold oral hypoglycemic agents glucose checks before meals and at bedtime Hyperlipidemia Continue home lovastatin Hypertension Continue home medications Lactic acidosis resolved DVT prophylaxis Lovenox subcutaneous
[2018-06-23] MEDS: LOVASTATIN 40 MG PO SCH (17:18)
[2018-06-23] MEDS: Latanoprost 0.005% Ophth Soln 2.5 ML Bottle EYEBOTH SCH (22:24)
[2018-06-23] MEDS: Sodium Chloride 0.9% 10 ML Syringe FLUSH PRN ×2 (22:24→22:25)
[2018-06-23] MEDS: Losartan 50 MG Tab PO SCH (22:25)
[2018-06-24 06:42] LABS: ANION GAP 14.1; CHLORIDE,CL 100 mmol/L (101-111); SODIUM,NA 134 mmol/L (135-145)
[2018-06-24] MEDS: predniSONE 10 MG Tab PO SCH (08:17)
[2018-06-24] MEDS: Metoprolol Succinate 50 MG Tab.ER PO SCH (08:18)
[2018-06-24] MEDS: Vitamin B6-pyridOXINE 100 MG Tab PO SCH (08:19)
[2018-06-24] MEDS: CYANOCOBALAMIN 1000 MCG PO SCH (08:19)
[2018-06-24] MEDS: Insulin Lispro 100 Units/ML 3 ML Vial SUBCUT SCH ×2 (08:20→12:28)
[2018-06-24] MEDS: Enoxaparin 40 MG/0.4 ML Syringe SUBCUT SCH (08:21)
[2018-06-24] MEDS ORDERED: Levofloxacin 500 MG Tab PO SCH (09:00)
--- NOTE | 2018-06-24 11:06 | PCM.DCSUM1 ---
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 He was also found to be in acute Hypoxic respiratory failure requiring oxygen thought to be due to the possible pneumonia versus lung Ca. Chest x-ray showed mild diffuse vascular congestion with mild atelectasis versus infiltrate within the medial right base, mild cardiomegaly. Patient's receive supplemental oxygen, antibiotics. His overall condition improved. He was unable to be weaned off oxygen and will be discharged home on HOME oxygen. He had walking desats test and patient will require 3 L of oxygen with activity. Regarding his weakness patient will be discharged home with home health services to Acute hypoxic respiratory failure Patient previously not on home oxygen However continued to have episodes of hypoxia suspect from pneumonia versus lung cancer Patients with walking desats on 06/24/18- patient desats to 82% on room air, patient required 3 L to maintain sats greater than 92% with activity and 2 L at rest Patient is ambulatory and suspect will require for life Patient is ambulatory at home and will benefit from portable oxygen. Home health nurse is ordered to monitor respiratory status along with education related to home oxygen and disease process. Patient is homebound due to shortness of breath related to Lung carcinoma and recent pneumonia. The patient requires caregiver to leave the home as it is a terixing effort to leave the home independently. Diagnosis: Stroke: No - Discharge Data Discharge Date: 06/24/18 Discharge Disposition: Home, Self-Care 01 Condition: Good - Discharge Diagnosis/Problem(s) (1) Hyperlipidemia SNOMED Code(s): 37969163 ICD Code: E78.5 - HYPERLIPIDEMIA, UNSPECIFIED Status: Acute Current Visit : Yes (2) Hypertension SNOMED Code(s): 74922180 ICD Code: I10 - ESSENTIAL (PRIMARY) HYPERTENSION Status: Acute Current Visit: Yes (3) Non-small cell lung cancer SNOMED Code(s): 105122919 ICD Code: C34.90 - MALIGNANT NEOPLASM OF UNSP PART OF UNSP BRONCHUS OR LUNG Status: Acute Current Visit: Yes (4) Respiratory failure with hypoxia SNOMED Code(s): 35824665711636070 ICD Code: J96.91 - RESPIRATORY FAILURE, UNSPECIFIED WITH HYPOXIA Status: Acute Current Visit: Yes (5) Type 2 diabetes mellitus SNOMED Code(s): 64843668 ICD Code: E11.9 - TYPE 2 DIABETES MELLITUS WITHOUT COMPLICATIONS Status: Acute Current Visit: Yes (6) Hypoxemia SNOMED Code(s): 180020915 ICD Code: R09.02 - HYPOXEMIA Status: Acute Current Visit: No (7) Lung cancer SNOMED Code(s): 643463219 ICD Code: C34.90 - MALIGNANT NEOPLASM OF UNSP PART OF UNSP BRONCHUS OR LUNG Status: Acute Current Visit: No Qualifiers: Laterality: unspecified laterality Lung location: unspecified part of lung Qualified Code(s): C34.90 - Malignant neoplasm of unspecified part of unspecified bronchus or lung (8) Pneumonia SNOMED Code(s): 936753052 ICD Code: J18.9 - PNEUMONIA, UNSPECIFIED ORGANISM Status: Acute Current Visit: No Qualifiers: Pneumonia type: due to unspecified organism Laterality: right Lung location: unspecified part of lung Qualified Code(s): J18.9 - Pneumonia, unspecified organism - Patient Summary/Data Consults: Consultations 06/21/18 05:03 OT Evaluation and Treatment [CONS] Routine PT Evaluation and Treatment [CONS] Routine - Patient Instructions Diet: Heart Healthy Diet Activity: As Tolerated Driving: May Drive Today Showering/Bathing: May Shower Notify Provider of: Fever, Increased Pain, Swelling and Redness, Nausea and/or Vomiting - Discharge Plan *PRESCRIPTION DRUG MONITORING PROGRAM REVIEWED*: No *COPY OF PRESCRIPTION DRUG MONITORING REPORT IN PATIENT ELLEN: No Prescriptions/Med Rec: levoFLOXacin [Levaquin] 500 mg PO DAILY 7 Days #7 tablet Home Medications: Home Meds Cyanocobalamin (Vitamin B-12) [Vitamin B-12] 1,000 mcg PO DAILY 05/14/18 [ History] Latanoprost/Pf [Latanoprost 0.005% Eye Drop] 7.5 ml EYEBOTH DAILY 05/14/18 [ History] Losartan [Cozaar] 50 mg PO BEDTIME 05/14/18 [History] Lovastatin 80 mg PO BEDTIME 05/14/18 [History] Metoprolol Succinate [Toprol XL 100mg] 100 mg PO DAILY 05/14/18 [History] Prochlorperazine [Compazine] 10 mg PO DAILY 05/14/18 [History] Pyridoxine HCl [Vitamin B-6] 100 mg PO DAILY 05/14/18 [History] glipiZIDE [Glucotrol] 10 mg PO BID 05/14/18 [History] metFORMIN HCl [Metformin HCl] 1,000 mg PO BID 05/14/18 [History] Pyridoxine HCl (Vitamin B6) [Pyridoxine HCl] 100 mg PO DAILY 06/21/18 [History] diphenhydrAMINE [Benadryl] 25 mg PO BEDTIME 06/21/18 [History] predniSONE [Prednisone] 10 mg PO DAILY 06/21/18 [History] Aspirin [Aspirin EC] 325 mg PO DAILY 06/22/18 [History] levoFLOXacin [Levaquin] 500 mg PO DAILY 7 Days #7 tablet 06/24/18 [Rx] Oxygen Therapy Mode: Nasal Cannula Oxygen Flow Rate (L/min): 3 Maintain SpO2% greater than: 92 Patient Handouts: Fall Prevention in the Home, [id number], Home Oxygen Use, Adult, Levofloxacin tablets Referrals: Avery Mejia MD [Primary Care Provider] - - Discharge Summary/Plan Comment DC Time >30 min.: Yes - Patient Data Vitals - Most Recent: Last Vital Signs Temp 99.4 F 06/24/18 08:00 Pulse 97 06/24/18 08:18 Resp 18 06/24/18 08:00 BP 107/64 06/24/18 08:18 Pulse Ox 94 L 06/24/18 08:00 Weight - Most Recent: 172 lb 9.6 oz I&O - Last 24 hours: Intake & Output 06/23/18 06/24/18 06/24/18 22:59 06:59 14:59 Intake Total 360 440 Balance 360 440 Lab Results - Last 24 hrs: Laboratory Results - last 24 hr 06/23/18 06/23/18 06/23/18 Range/Units 11:24 16:56 20:51 WBC (5.0-10.0) 10^3/uL RBC (4.6-6.2) 10^6/uL Hgb (14.0-18.0) g/dL Hct (40.0-54.0) % MCV (80-100) fL MCH (27.0-34.0) pg MCHC (33.0-35.0) g/dL Plt Count (150-450) 10^3/uL Neut % (Auto) (42.2-75.2) % Lymph % (Auto) (20.5-50.1) % [place] % (Auto) (2-8) % Eos % (Auto) (1.0-3.0) % Baso % (Auto) (0.0-1.0) % Sodium (135-145) mmol/L Potassium (3.6-5.0) mmol/L Chloride (101-111) mmol/L Carbon Dioxide (21.0-31.0) mmol/L Anion Gap BUN (7-18) mg/dL Creatinine (0.6-1.3) mg/dL Est Cr Clr Drug Dosing mL/min Estimated GFR (MDRD) BUN/Creatinine Ratio Glucose (74-105) mg/dL POC Glucose 267 H 309 H 196 H (83-110) mg/dl Calcium (8.4-10.2) mg/dl Total Bilirubin (0.2-1.0) mg/dL AST (10-42) IU/L ALT (10-60) IU/L Alkaline Phosphatase (42-121) IU/L Total Protein (6.7-8.2) g/dl Albumin (3.2-5.5) g/dl Globulin Albumin/Globulin Ratio 06/24/18 06/24/18 06/24/18 Range/Units 06:10 06:10 06:58 WBC 4.5 L (5.0-10.0) 10^3/uL RBC 3.57 L (4.6-6.2) 10^6/uL Hgb 10.7 L (14.0-18.0) g/dL Hct 33.5 L (40.0-54.0) % MCV 93.8 (80-100) fL MCH 30.0 (27.0-34.0) pg MCHC 31.9 L (33.0-35.0) g/dL Plt Count 259 (150-450) 10^3/uL Neut % (Auto) 75.9 H (42.2-75.2) % Lymph % (Auto) 5.5 L (20.5-50.1) % [place] % (Auto) 14.8 H (2-8) % Eos % (Auto) 3.1 H (1.0-3.0) % Baso % (Auto) 0.7 (0.0-1.0) % Sodium 134 L (135-145) mmol/L Potassium 4.1 (3.6-5.0) mmol/L Chloride 100 L (101-111) mmol/L Carbon Dioxide 24.0 (21.0-31.0) mmol/L Anion Gap 14.1 BUN 13 (7-18) mg/dL Creatinine 0.5 L (0.6-1.3) mg/dL Est Cr Clr Drug Dosing 117.51 mL/min Estimated GFR (MDRD) > 60 BUN/Creatinine Ratio 26.00 Glucose 190 H (74-105) mg/dL POC Glucose 169 H (83-110) mg/dl Calcium 8.4 (8.4-10.2) mg/dl Total Bilirubin 1.0 (0.2-1.0) mg/dL AST 32 (10-42) IU/L ALT 28 (10-60) IU/L Alkaline Phosphatase 47 (42-121) IU/L Total Protein 6.2 L (6.7-8.2) g/dl Albumin 3.1 L (3.2-5.5) g/dl Globulin 3.1 Albumin/Globulin Ratio 1.00 Med Orders - Current: Current Medications Acetaminophen (Tylenol) 650 mg PO Q6H PRN PRN Reason: Pain Last Admin: 06/22/18 03:41 Dose: 650 mg Enoxaparin Sodium (Lovenox) 40 mg SUBCUT DAILY [facility] Last Admin: 06/24/18 08:21 Dose: 40 mg Insulin Human Lispro (Humalog) 0 unit SUBCUT WITHMEALSANDBED [facility]; Protocol Last Admin: 06/24/18 08:20 Dose: 1 unit Latanoprost (Xalatan 0.005% Ophth Soln) 0 ml EYEBOTH BEDTIME [facility] Last Admin: 06/23/18 22:24 Dose: 1 drop Levofloxacin (Levaquin) 750 mg PO DAILY [facility] Last Admin: 06/24/18 08:18 Dose: 750 mg Losartan Potassium (Cozaar) 50 mg PO BEDTIME [facility] Last Admin: 06/23/18 22:25 Dose: 50 mg Metoprolol Succinate (Toprol Xl) 100 mg PO DAILY [facility] Last Admin: 06/24/18 08:18 Dose: 100 mg Lovastatin 40 Mg (Pt's Own Med) 0 each PO WITHDINNER [facility] Last Admin: 06/23/18 17:18 Dose: 1 each Cyanocobalamin ( Vitamin B12) 1000 Mcg Tab Pt's Own Med 0 each PO DAILY [facility] Last Admin: 06/24/18 08:19 Dose: 1 each Prednisone (Prednisone) 10 mg PO DAILY [facility] Last Admin: 06/24/18 08:17 Dose: 10 mg Pyridoxine HCl (Vitamin B6-Pyridoxine) 100 mg PO DAILY [facility] Last Admin: 06/24/18 08:19 Dose: 100 mg Sodium Chloride (Saline Flush) 10 ml FLUSH ASDIRECTED PRN PRN Reason: Keep Vein Open Last Admin: 06/23/18 22:25 Dose: 10 ml Discontinued Medications Cyanocobalamin (Vitamin B12) 1,000 mcg PO DAILY [facility] Last Admin: 06/21/18 09:03 Dose: Not Given Furosemide (Lasix) 40 mg IVPUSH NOW ONE Stop: 06/22/18 15:01 Last Admin: 06/22/18 15:34 Dose: 40 mg Sodium Chloride (Normal Saline) 1,000 mls @ 999 mls/hr IV .BOLUS ONE Stop: 06/21/18 04:38 Last Admin: 06/21/18 03:50 Dose: 999 mls/hr Levofloxacin/Dextrose 500 mg/ (Premix) 100 mls @ 100 mls/hr IV ONETIME ONE Stop: 06/21/18 04:40 Last Admin: 06/21/18 03:51 Dose: 100 mls/hr Lactated Ringer's (Ringers, Lactated) 1,000 mls @ 100 mls/hr IV ASDIRECTED [facility] Last Admin: 06/21/18 05:20 Dose: 100 mls/hr Levofloxacin/Dextrose 750 mg/ (Premix) 150 mls @ 100 mls/hr IV Q24H [facility] Levofloxacin/Dextrose 750 mg/ (Premix) 150 mls @ 100 mls/hr IV Q24H [facility] Last Infusion: 06/23/18 10:05 Dose: Infused Insulin Aspart (Novolog) 0 unit SUBCUT WITHMEALSANDBED [facility]; Protocol Last Admin: 06/21/18 09:02 Dose: Not Given Iopamidol (Isovue-370 (76%)) 100 ml IVPUSH ONETIME ONE Stop: 06/22/18 12:36 Last Admin: 06/22/18 13:24 Dose: 68 ml Potassium Chloride (Klor-Con 10) 40 meq PO ONETIME ONE Stop: 06/22/18 14:44 Last Admin: 06/22/18 15:34 Dose: 40 meq
== END 2018-06-24 14:00 | disposition home or self-care (01) | DRG 180 ==
LOC: DL.ED 02:12 → DL.MS 04:23 → UNDOADMIN 04:23 → DL.MS 05:03 → UNDOADMIN 05:03 → DL.MS 06-22 17:45
PROVIDERS: ADMIT Internal Medicine; ATTEND Student in an Organized Health Care Education/Training Program
DX: C34.01 Malignant neoplasm of right main bronchus (principal); J18.9 Pneumonia, unspecified organism; J96.01 Acute respiratory failure with hypoxia; J98.11 Atelectasis; J44.0 Chronic obstructive pulmonary disease with (acute) lower respiratory infection; E87.2 Acidosis; E78.5 Hyperlipidemia, unspecified; I73.9 Peripheral vascular disease, unspecified; I10 Essential (primary) hypertension; E11.9 Type 2 diabetes mellitus without complications; W19.XXXA Unspecified fall, initial encounter; H40.9 Unspecified glaucoma; E78.00 Pure hypercholesterolemia, unspecified; N40.0 Benign prostatic hyperplasia without lower urinary tract symptoms; E53.8 Deficiency of other specified B group vitamins; Z79.82 Long term (current) use of aspirin; Z79.899 Other long term (current) drug therapy; Z79.84 Long term (current) use of oral hypoglycemic drugs; Z88.8 Allergy status to other drugs, medicaments and biological substances; Z91.018 Allergy to other foods; Z87.891 Personal history of nicotine dependence
CPT/HCPCS: 36415; 71045; 71260; 80053; 81003; 82550; 82553; 82962; 83605; 84484; 85025; 85610; 87804; 93005; 94761; 96365; 97116-GP; 97162-GP; 97165-GO; 97530-GO; 99285; A9270-GY; J1642; J1650; J1815; J1940; J1956; J7030; J7120; Q9967

== ENCOUNTER 2018-09-10 22:20 | Inpatient (IN) | payer MEDICARE, BC ==
--- NOTE | 2018-09-10 22:53 | EDM.PDOC ---
ED HPI GENERAL MEDICAL PROBLEM - General Chief Complaint: General Stated Complaint: AMBULANCE Time Seen by Provider: 09/10/18 22:48 Source of Information: Reports: Patient History Limitations: Reports: No Limitations - History of Present Illness INITIAL COMMENTS - FREE TEXT/NARRATIVE: states his legs have been feeling weak for the past month, has cancer and gets chemo @ [facility] and did tell his Oncologist who told him it is due to prednisone and he will be finishing the course in a few days but tonight got worse with no strength in his legs and unable to use his walker. family states pt was perfectly fine this afternoon and suddenly tonight he is unable to stand and use his walker. - Related Data Allergies Allergy/AdvReac Type Severity Reaction Status Date / Time enalapril Allergy Cough Verified 06/21/18 04:41 strawberry Allergy Hives Verified 06/21/18 04:41 Home Meds: Home Meds Cyanocobalamin (Vitamin B-12) [Vitamin B-12] 1,000 mcg PO DAILY 05/14/18 [ History] Latanoprost/Pf [Latanoprost 0.005% Eye Drop] 1 drop EYEBOTH DAILY 05/14/18 [ History] Losartan [Cozaar] 50 mg PO BEDTIME 05/14/18 [History] Lovastatin 80 mg PO BEDTIME 05/14/18 [History] Metoprolol Succinate [Toprol XL 100mg] 100 mg PO DAILY 05/14/18 [History] Prochlorperazine [Compazine] 10 mg PO DAILY 05/14/18 [History] Pyridoxine HCl [Vitamin B-6] 100 mg PO DAILY 05/14/18 [History] glipiZIDE [Glucotrol] 10 mg PO BID 05/14/18 [History] metFORMIN HCl [Metformin HCl] 1,000 mg PO BID 05/14/18 [History] diphenhydrAMINE [Benadryl] 25 mg PO BEDTIME PRN 06/21/18 [History] predniSONE [Prednisone] 10 mg PO .THURS, SAT, MON 06/21/18 [History] Aspirin [Aspirin EC] 325 mg PO DAILY 06/22/18 [History] Acetaminophen 500 mg PO Q4HR PRN 09/11/18 [History] Albuterol Sulfate [Proventil Hfa] 1 - 2 puff INH Q4HR PRN 09/11/18 [History] Docusate Sodium 100 mg PO DAILY PRN 09/11/18 [History] Furosemide [Lasix] 60 mg PO DAILY 09/11/18 [History] Insulin Aspart [NovoLOG] See Protocol SUBCUT TIDMEALS 09/11/18 [History] Ondansetron [Zofran] 8 mg PO Q8H PRN 09/11/18 [History] Past Medical History HEENT History: Reports: Glaucoma Cardiovascular History: Reports: High Cholesterol, Hypertension Respiratory History: Reports: COPD Gastrointestinal History: Reports: None Genitourinary History: Reports: BPH Musculoskeletal History: Reports: None Neurological History: Reports: None Psychiatric History: Reports: None Endocrine/Metabolic History: Reports: Diabetes, Type II Hematologic History: Reports: B12 Deficiency Immunologic History: Reports: Immunosuppression Oncologic (Cancer) History: Reports: Lung Dermatologic History: Reports: None - Infectious Disease History Infectious Disease History: Reports: None - Past Surgical History HEENT Surgical History: Reports: None Cardiovascular Surgical History: Reports: None Respiratory Surgical History: Reports: None GI Surgical History: Reports: None Male Surgical History: Reports: None Endocrine Surgical History: Reports: None Neurological Surgical History: Reports: None Musculoskeletal Surgical History: Reports: None Oncologic Surgical History: Reports: None Dermatological Surgical History: Reports: None Social & Family History - Family History Family Medical History: Noncontributory - Caffeine Use Caffeine Use: Reports: Coffee, Soda, Tea ED ROS GENERAL - Review of Systems Review Of Systems: ROS reveals no pertinent complaints other than HPI. ED EXAM, GENERAL - Physical Exam Exam: See Below Exam Limited By: No Limitations General Appearance: Alert, WD/WN, Anxious, Mild Distress, Other (upset) Eye Exam: Bilateral Eye: PERRL (pupils ess ER @ 4mm) Ears: Hearing Grossly Normal Throat/Mouth: Normal Voice, No Airway Compromise Head: Atraumatic Neck: Non-Tender, Full Range of Motion Respiratory/Chest: No Respiratory Distress Cardiovascular: Regular Rate, Rhythm GI/Abdominal: Soft, Non-Tender Extremities: Normal Inspection, Normal Range of Motion, Other (unable to bear weight) Neurological: Alert, Oriented, Normal Cognition, No Motor/Sensory Deficits Psychiatric: Other (upset) Skin Exam: Warm, Dry, Normal Color Lymphatic: No Adenopathy Course - Vital Signs Last Recorded V/S: Last Vital Signs Temp 36.4 C 09/11/18 15:30 Pulse 80 09/11/18 15:30 Resp 20 09/11/18 15:30 BP 119/60 09/11/18 15:30 Pulse Ox 100 09/11/18 15:30 - Orders/Labs/Meds Orders: Medication Orders Albuterol (Proventil Hfa) 0 gm INH Q4H PRN PRN Reason: Wheezing Aspirin (Ecotrin) 325 mg PO DAILY [facility] Last Admin: 09/11/18 12:27 Dose: 325 mg Cyanocobalamin (Vitamin B12) 1,000 mcg PO DAILY [facility] Last Admin: 09/11/18 12:28 Dose: 1,000 mcg Diphenhydramine HCl (Benadryl) 25 mg PO BEDTIME PRN PRN Reason: Itching Docusate Sodium (Colace) 100 mg PO DAILY PRN PRN Reason: Constipation Last Admin: 09/11/18 12:29 Dose: 100 mg Furosemide (Lasix) 60 mg PO DAILY [facility] Last Admin: 09/11/18 12:28 Dose: 60 mg Glipizide (Glucotrol) 10 mg PO BID@0730,1730 [facility] Last Admin: 09/11/18 17:16 Dose: 10 mg Admin: 09/11/18 12:30 Dose: 10 mg Heparin Sodium (Porcine) (Heparin Sodium) 5,000 units SUBCUT Q8H [facility] Last Admin: 09/11/18 12:32 Dose: 5,000 units Insulin Human Lispro (Humalog) 0 unit SUBCUT QIDACANDBED [facility]; Protocol Last Admin: 09/11/18 17:16 Dose: Not Given Admin: 09/11/18 12:30 Dose: 2 units Latanoprost (Xalatan 0.005% Ophth Soln) 0 ml EYEBOTH BEDTIME [facility] Losartan Potassium (Cozaar) 50 mg PO BEDTIME [facility] Metformin HCl (Glucophage) 1,000 mg PO BIDMEALS [facility] Last Admin: 09/11/18 17:16 Dose: 1,000 mg Admin: 09/11/18 12:26 Dose: 1,000 mg Metoprolol Succinate (Toprol Xl) 100 mg PO DAILY [facility] Last Admin: 09/11/18 12:25 Dose: 100 mg Non-Formulary Medication (Lovastatin [Lovastatin]) 80 mg PO BEDTIME [facility] Ondansetron HCl (Zofran Odt) 8 mg PO Q8H PRN PRN Reason: Nausea Pantoprazole Sodium (Protonix) 40 mg PO ACBREAKFAST [facility] Last Admin: 09/11/18 12:29 Dose: 40 mg Prochlorperazine Maleate (Compazine) 10 mg PO DAILY [facility] Last Admin: 09/11/18 12:26 Dose: 10 mg Pyridoxine HCl (Vitamin B6-Pyridoxine) 100 mg PO DAILY [facility] Last Admin: 09/11/18 12:28 Dose: 100 mg Labs: Laboratory Tests 09/10/18 09/10/18 09/10/18 Range/Units 22:38 22:38 22:38 WBC 1.8 L (5.0-10.0) 10^3/uL RBC 3.01 L (4.6-6.2) 10^6/uL Hgb 8.9 L D (14.0-18.0) g/dL Hct 27.0 L (40.0-54.0) % MCV 89.7 D (80-100) fL MCH 29.6 (27.0-34.0) pg MCHC 33.0 (33.0-35.0) g/dL Plt Count 260 (150-450) 10^3/uL Neut % (Auto) 77.4 H (42.2-75.2) % Lymph % (Auto) 13.6 L (20.5-50.1) % [place] % (Auto) 6.8 (2-8) % Eos % (Auto) 1.1 (1.0-3.0) % Baso % (Auto) 1.1 H (0.0-1.0) % Sodium 136 (135-145) mmol/L Potassium 2.9 L (3.6-5.0) mmol/L Chloride 101 (101-111) mmol/L Carbon Dioxide 24.0 (21.0-31.0) mmol/L Anion Gap 13.9 BUN 11 (7-18) mg/dL Creatinine 0.5 L (0.6-1.3) mg/dL Est Cr Clr Drug Dosing TNP Estimated GFR (MDRD) > 60 BUN/Creatinine Ratio 22.00 Glucose 106 H (74-105) mg/dL Lactic Acid 0.8 (0.5-2.2) mmol/L Calcium 8.6 (8.4-10.2) mg/dl Total Bilirubin 1.2 H (0.2-1.0) mg/dL AST 23 (10-42) IU/L ALT 19 (10-60) IU/L Alkaline Phosphatase 49 (42-121) IU/L Total Protein 6.4 L (6.7-8.2) g/dl Albumin 3.4 (3.2-5.5) g/dl Globulin 3.0 Albumin/Globulin Ratio 1.13 Meds: Medications Generic Name Dose Route Start Last Admin Trade Name Freq PRN Reason Stop Dose Admin Albuterol 0 gm 09/11/18 11:18 Proventil Hfa INH Q4H PRN Wheezing Aspirin 325 mg 09/11/18 11:45 09/11/18 12:27 Ecotrin PO 325 mg DAILY [facility] Administration Cyanocobalamin 1,000 mcg 09/11/18 11:45 09/11/18 12:28 Vitamin B12 PO 1,000 mcg DAILY [facility] Administration Diphenhydramine HCl 25 mg 09/11/18 11:19 Benadryl PO BEDTIME PRN Itching Docusate Sodium 100 mg 09/11/18 11:19 09/11/18 12:29 Colace PO 100 mg DAILY PRN Administration Constipation Furosemide 60 mg 09/11/18 11:45 09/11/18 12:28 Lasix PO 60 mg DAILY [facility] Administration Glipizide 10 mg 09/11/18 12:00 09/11/18 17:16 Glucotrol PO 10 mg BID@0730,1730 [facility] Administration Heparin Sodium (Porcine) 5,000 units 09/11/18 12:00 09/11/18 12:32 Heparin Sodium SUBCUT 5,000 units Q8H [facility] Administration Insulin Human Lispro 0 unit 09/11/18 11:45 09/11/18 17:16 Humalog SUBCUT Not Given QIDACANDBED [facility] Protocol Latanoprost 0 ml 09/11/18 21:00 Xalatan 0.005% Ophth Soln EYEBOTH BEDTIME [facility] Losartan Potassium 50 mg 09/11/18 21:00 Cozaar PO BEDTIME [facility] Metformin HCl 1,000 mg 09/11/18 12:00 09/11/18 17:16 Glucophage PO 1,000 mg BIDMEALS [facility] Administration Metoprolol Succinate 100 mg 09/11/18 12:00 09/11/18 12:25 Toprol Xl PO 100 mg DAILY [facility] Administration Non-Formulary Medication 80 mg 09/11/18 21:00 Lovastatin [Lovastatin] PO BEDTIME [facility] Ondansetron HCl 8 mg 09/11/18 11:19 Zofran Odt PO Q8H PRN Nausea Pantoprazole Sodium 40 mg 09/11/18 11:45 09/11/18 12:29 Protonix PO 40 mg ACBREAKFAST [facility] Administration Prochlorperazine Maleate 10 mg 09/11/18 12:00 09/11/18 12:26 Compazine PO 10 mg DAILY [facility] Administration Pyridoxine HCl 100 mg 09/11/18 11:45 09/11/18 12:28 Vitamin B6-Pyridoxine PO 100 mg DAILY [facility] Administration Discontinued Medications Generic Name Dose Route Start Last Admin Trade Name Freq PRN Reason Stop Dose Admin Potassium Chloride Confirm 09/11/18 01:53 09/11/18 07:52 Kcl 10 Meq In Water 100 Ml Administered 09/11/18 01:54 Not Given Dose 100 mls @ as directed .ROUTE .STK-MED ONE Potassium Chloride 20 meq/ 100 mls @ 50 mls/hr 09/11/18 04:30 09/11/18 07:54 Premix IV 09/11/18 08:29 Not Given Q2H [facility] Potassium Chloride Confirm 09/11/18 01:53 09/11/18 07:52 Klor-Con 10 Administered 09/11/18 01:54 Not Given Dose 40 meq .ROUTE .STK-MED ONE Potassium Chloride 40 meq 09/11/18 04:30 09/11/18 07:54 Klor-Con 10 PO 09/11/18 04:31 Not Given ONETIME ONE - Re-Assessments/Exams Free Text/Narrative Re-Assessment/Exam: 09/11/18 18:[address] Dye who kindly admitted pt Departure - Departure Time of Disposition: 22:45 Disposition: Admitted As Inpatient 67 Condition: Fair Clinical Impression: Weakness, Paresis of lower extremity Lung cancer Qualifiers: Laterality: unspecified laterality Lung location: unspecified part of lung Qualified Code(s): C34.90 - Malignant neoplasm of unspecified part of unspecified bronchus or lung - Discharge Information
[2018-09-11] MEDS ORDERED: Potassium Chloride 100 ML ONE (01:53)
[2018-09-11] MEDS ORDERED: Potassium Chloride 10 MEQ Tab.ER ONE (01:53)
[2018-09-11] MEDS ORDERED: Potassium Chloride 10 MEQ Tab.ER PO ONE (04:30)
[2018-09-11 05:40] LABS: CHLORIDE,CL 101 mmol/L (101-111); SODIUM,NA 136 mmol/L (135-145)
[2018-09-11 05:41] LABS: ANION GAP 13.9
[2018-09-11] MEDS: Potassium Chloride 20 MEQ in Premix Bag 1 BAG IV SCH ×2 (07:53→07:54)
[2018-09-11 08:04] LABS: ANION GAP 15.5; CHLORIDE,CL 103 mmol/L (101-111); SODIUM,NA 135 mmol/L (135-145)
--- NOTE | 2018-09-11 10:59 | PCM.HP ---
H&P History of Present Illness - General Date of Service: 09/11/18 Source of Information: Patient, EMS, Old Records History Limitations: Reports: No Limitations - History of Present Illness Initial Comments - Free Text/Narative: Mr. Darek Yoder is a 77-year-old male with medical history significant for hypertension, hyperlipidemia, type 2 diabetes mellitus, chronic history of alcohol use and tobacco use but quit smoking 2017 after the diagnosis of rt lung Squamous Cell carcinoma , also has chronic obstructive pulmonary disease he has received radiation and chemotherapy and he is now getting closely followed by Dr. Villalba and was last seen on 09/06/18 and on Abraxane. He is off prednisone but at home he was extremely weak and can not come out of [facility] by himself. He came to ED with complain of severe weakness of his lower extremity and was also noted to have low potassium. He will need PT/OT evaluation before discharge to home. He leaves alone at home and says his appetite is not good. He uses oxygen 24 hrs Onset of Symptoms: Reports: Gradual Duration of Symptoms: Reports: Day(s): Associated Symptoms: Reports: Weakness - Related Data Allergies/Adverse Reactions: Allergies Allergy/AdvReac Type Severity Reaction Status Date / Time enalapril Allergy Cough Verified 06/21/18 04:41 strawberry Allergy Hives Verified 06/21/18 04:41 Home Medications: Home Meds Cyanocobalamin (Vitamin B-12) [Vitamin B-12] 1,000 mcg PO DAILY 05/14/18 [ History] Latanoprost/Pf [Latanoprost 0.005% Eye Drop] 1 drop EYEBOTH DAILY 05/14/18 [ History] Losartan [Cozaar] 50 mg PO BEDTIME 05/14/18 [History] Lovastatin 80 mg PO BEDTIME 05/14/18 [History] Metoprolol Succinate [Toprol XL 100mg] 100 mg PO DAILY 05/14/18 [History] Prochlorperazine [Compazine] 10 mg PO DAILY 05/14/18 [History] Pyridoxine HCl [Vitamin B-6] 100 mg PO DAILY 05/14/18 [History] glipiZIDE [Glucotrol] 10 mg PO BID 05/14/18 [History] metFORMIN HCl [Metformin HCl] 1,000 mg PO BID 05/14/18 [History] diphenhydrAMINE [Benadryl] 25 mg PO BEDTIME PRN 06/21/18 [History] predniSONE [Prednisone] 10 mg PO .THURS, SAT, MON 06/21/18 [History] Aspirin [Aspirin EC] 325 mg PO DAILY 06/22/18 [History] Acetaminophen 500 mg PO Q4HR PRN 09/11/18 [History] Albuterol Sulfate [Proventil Hfa] 1 - 2 puff INH Q4HR PRN 09/11/18 [History] Docusate Sodium 100 mg PO DAILY PRN 09/11/18 [History] Furosemide [Lasix] 60 mg PO DAILY 09/11/18 [History] Insulin Aspart [NovoLOG] See Protocol SUBCUT TIDMEALS 09/11/18 [History] Ondansetron [Zofran] 8 mg PO Q8H PRN 09/11/18 [History] Past Medical History HEENT History: Reports: Glaucoma Cardiovascular History: Reports: High Cholesterol, Hypertension Respiratory History: Reports: COPD Gastrointestinal History: Reports: None Genitourinary History: Reports: BPH Musculoskeletal History: Reports: None Neurological History: Reports: None Psychiatric History: Reports: None Endocrine/Metabolic History: Reports: Diabetes, Type II Hematologic History: Reports: B12 Deficiency Immunologic History: Reports: Immunosuppression Oncologic (Cancer) History: Reports: Lung Dermatologic History: Reports: None - Infectious Disease History Infectious Disease History: Reports: None - Past Surgical History HEENT Surgical History: Reports: None Cardiovascular Surgical History: Reports: None Respiratory Surgical History: Reports: None GI Surgical History: Reports: None Male Surgical History: Reports: None Endocrine Surgical History: Reports: None Neurological Surgical History: Reports: None Musculoskeletal Surgical History: Reports: None Oncologic Surgical History: Reports: None Dermatological Surgical History: Reports: None Social & Family History - Family History Family Medical History: Noncontributory - Tobacco Use Smoking Status *Q: Unknown Ever Smoked - Caffeine Use Caffeine Use: Reports: Coffee - Recreational Drug Use Recreational Drug Use: No H&P Review of Systems - Review of Systems: Review Of Systems: See Below General: Reports: Weakness, Fatigue, Decreased Appetite. Denies: Fever, Chills HEENT: Denies: Headaches, Post Nasal Drip, Sinus Congestion, Sore Throat, Vertigo Pulmonary: Reports: Shortness of Breath. Denies: Wheezing, Cough, Sputum Cardiovascular: Reports: Dyspnea on Exertion. Denies: Chest Pain, Lightheadedness Gastrointestinal: Denies: Abdominal Pain, Diarrhea, Nausea, Vomiting Genitourinary: Denies: Dysuria, Burning, Urgency, Flank Pain Musculoskeletal: Denies: Neck Pain, Shoulder Pain, Joint Swelling Skin: Denies: Cyanosis, Jaundice, Bruising, Pruritis, Rash Psychiatric: Denies: Confusion, Anxiety Neurological: Reports: Weakness. Denies: Confusion, Tingling, Tremors Hematologic/Lymphatic: Reports: Anemia Immunologic: Reports: No Symptoms Exam - Exam Exam: See Below - Vital Signs Vital Signs: Last Vital Signs Temp 36.6 C 09/11/18 08:10 Pulse 97 09/11/18 08:10 Resp 20 09/11/18 08:10 BP 126/69 09/11/18 08:10 Pulse Ox 97 09/11/18 08:10 - Exam Quality Assessment: Supplemental Oxygen, DVT Prophylaxis General: Alert, Oriented, Cooperative, Mild Distress HEENT: Conjunctiva Clear, EOMI, Mucosa Moist & [employer] Neck: Supple. No: JVD, Thyromegaly Lungs: Clear to Auscultation, Normal Respiratory Effort, Crackles Cardiovascular: Regular Rate, Regular Rhythm, Systolic Murmur GI/Abdominal Exam: Normal Bowel Sounds. No: Rigid, Rebound, Tender (Male) Exam: Deferred Rectal (Males) Exam: Deferred Back Exam: Normal Inspection, Full Range of Motion Extremities: Normal Inspection, No Pedal Edema Skin: Warm, Dry, Intact Neurological: Cranial Nerves Intact, Reflexes Equal Bilateral Neuro Extensive - Mental Status: Alert, Oriented x3, Normal Mood/Affect, Normal Cognition, Memory Intact Neuro Extensive - Motor, Sensory, Reflexes: CN II-XII Intact Psychiatric: Alert, Normal Affect, Normal Mood - Patient Data Lab Results Last 24 hrs: Laboratory Results - last 24 hr 09/10/18 09/10/18 09/10/18 Range/Units 22:38 22:38 22:38 WBC 1.8 L (5.0-10.0) 10^3/uL RBC 3.01 L (4.6-6.2) 10^6/uL Hgb 8.9 L D (14.0-18.0) g/dL Hct 27.0 L (40.0-54.0) % MCV 89.7 D (80-100) fL MCH 29.6 (27.0-34.0) pg MCHC 33.0 (33.0-35.0) g/dL Plt Count 260 (150-450) 10^3/uL Neut % (Auto) 77.4 H (42.2-75.2) % Lymph % (Auto) 13.6 L (20.5-50.1) % Stark % (Auto) 6.8 (2-8) % Eos % (Auto) 1.1 (1.0-3.0) % Baso % (Auto) 1.1 H (0.0-1.0) % Sodium 136 (135-145) mmol/L Potassium 2.9 L (3.6-5.0) mmol/L Chloride 101 (101-111) mmol/L Carbon Dioxide 24.0 (21.0-31.0) mmol/L Anion Gap 13.9 BUN 11 (7-18) mg/dL Creatinine 0.5 L (0.6-1.3) mg/dL Est Cr Clr Drug Dosing TNP Estimated GFR (MDRD) > 60 BUN/Creatinine Ratio 22.00 Glucose 106 H (74-105) mg/dL Lactic Acid 0.8 (0.5-2.2) mmol/L Calcium 8.6 (8.4-10.2) mg/dl Total Bilirubin 1.2 H (0.2-1.0) mg/dL AST 23 (10-42) IU/L ALT 19 (10-60) IU/L Alkaline Phosphatase 49 (42-121) IU/L Total Protein 6.4 L (6.7-8.2) g/dl Albumin 3.4 (3.2-5.5) g/dl Globulin 3.0 Albumin/Globulin Ratio 1.13 09/11/18 Range/Units 07:25 WBC (5.0-10.0) 10^3/uL RBC (4.6-6.2) 10^6/uL Hgb (14.0-18.0) g/dL Hct (40.0-54.0) % MCV (80-100) fL MCH (27.0-34.0) pg MCHC (33.0-35.0) g/dL Plt Count (150-450) 10^3/uL Neut % (Auto) (42.2-75.2) % Lymph % (Auto) (20.5-50.1) % Stark % (Auto) (2-8) % Eos % (Auto) (1.0-3.0) % Baso % (Auto) (0.0-1.0) % Sodium 135 (135-145) mmol/L Potassium 4.5 D (3.6-5.0) mmol/L Chloride 103 (101-111) mmol/L Carbon Dioxide 21.0 (21.0-31.0) mmol/L Anion Gap 15.5 BUN 9 (7-18) mg/dL Creatinine 0.5 L (0.6-1.3) mg/dL Est Cr Clr Drug Dosing TNP Estimated GFR (MDRD) > 60 BUN/Creatinine Ratio Glucose 169 H (74-105) mg/dL Lactic Acid (0.5-2.2) mmol/L Calcium 8.0 L (8.4-10.2) mg/dl Total Bilirubin (0.2-1.0) mg/dL AST (10-42) IU/L ALT (10-60) IU/L Alkaline Phosphatase (42-121) IU/L Total Protein (6.7-8.2) g/dl Albumin (3.2-5.5) g/dl Globulin Albumin/Globulin Ratio Result Diagrams: 09/10/18 22:38 09/11/18 07:25 - Problem List (1) Weakness SNOMED Code(s): 63387651 ICD Code: R53.1 - WEAKNESS Status: Acute Current Visit: Yes (2) Hypokalemia SNOMED Code(s): 42014211 ICD Code: E87.6 - HYPOKALEMIA Status: Acute Current Visit: Yes (3) Hypertension SNOMED Code(s): 14301987 ICD Code: I10 - ESSENTIAL (PRIMARY) HYPERTENSION Status: Acute Current Visit: No (4) Non-small cell lung cancer SNOMED Code(s): 005654951 ICD Code: C34.90 - MALIGNANT NEOPLASM OF UNSP PART OF UNSP BRONCHUS OR LUNG Status: Acute Current Visit: No (5) Type 2 diabetes mellitus SNOMED Code(s): 77126086 ICD Code: E11.9 - TYPE 2 DIABETES MELLITUS WITHOUT COMPLICATIONS Status: Acute Current Visit: No Problem List Initiated/Reviewed/Updated: Yes Assessment/Plan Comment:: Mr. Darek Yoder is a 77-year-old male with medical history significant for hypertension, hyperlipidemia, type 2 diabetes mellitus, chronic history of alcohol use and tobacco use but quit smoking 2017 after the diagnosis of rt lung Squamous Cell carcinoma , also has chronic obstructive pulmonary disease he has received radiation and chemotherapy and he is now getting closely followed by Dr. Villalba and was last seen on 09/06/18 and on Abraxane. He is off prednisone but at home he was extremely weak and can not come out of [place] by himself. He came to ED with complain of severe weakness of his lower extremity and was also noted to have low potassium. He will need PT/OT evaluation before discharge to home. He leaves alone at home and says his appetite is not good. He uses oxygen 24 hrs. Impression and Plan: 1. Extreme weakness of B/L Lower Extremity: This is likely from Chemotherapy, shelter steroid and also Severe Hypokalemia -Will place PT/OT consult for evaluation and treatment -Will evaluate if he can live alone or need placement 2. Hypokalemia: Potassium was very low and will give potassium chlorider 40 meq IV X 1 dose and also 40 meq PO x 1 dose -recheck potassium 1 hr after the completion of infusion 3. Hypertension : will continue home midication Metoprolol and Losartan 4. COPD: he has been Dxed with this for long time and on home oxygen and continue nebs 5. Diabetes II: ( Non-Insulin Dependent): Will continue Metformin and FS blood sugar check 4 times a day and cover with insulin sliding scale 6. DVT and GI Prophylaxis: Heparin and Protonix Code Status: Discussed Code status with Pt and wants to be: Full Code
[2018-09-11] MEDS ORDERED: Albuterol 6.7 GM Inhaler INH PRN (11:18)
[2018-09-11] MEDS ORDERED: diphenhydrAMINE 25 MG Tab PO PRN (11:19)
[2018-09-11] MEDS ORDERED: Ondansetron 4 MG Tab.DIS PO PRN (11:19)
[2018-09-11] MEDS: Metoprolol Succinate 50 MG Tab.ER PO SCH (12:25)
[2018-09-11] MEDS: Prochlorperazine 5 MG Tab PO SCH (12:26)
[2018-09-11] MEDS: metFORMIN 500 MG Tab PO SCH ×2 (12:26→17:16)
[2018-09-11] MEDS: Aspirin 325 MG Tab.EC PO SCH (12:27)
[2018-09-11] MEDS: Cyanocobalamin (Vitamin B12) 1,000 MCG Tab PO SCH (12:28)
[2018-09-11] MEDS: Vitamin B6-pyridOXINE 100 MG Tab PO SCH (12:28)
[2018-09-11] MEDS: Furosemide 20 MG Tab PO SCH (12:28)
[2018-09-11] MEDS: Docusate Sodium 100 MG Cap PO PRN (12:29)
[2018-09-11] MEDS: Pantoprazole 40 MG Tab.CR PO SCH (12:29)
[2018-09-11] MEDS: Insulin Lispro 100 Units/ML 3 ML Vial SUBCUT SCH ×3 (12:30→21:07)
[2018-09-11] MEDS: glipiZIDE 5 MG Tab PO SCH ×2 (12:30→17:16)
[2018-09-11] MEDS: Heparin Sodium 5,000 Units/ML Vial SUBCUT SCH ×2 (12:32→21:07)
[2018-09-11] MEDS ORDERED: Latanoprost 0.005% Ophth Soln 2.5 ML Bottle EYEBOTH SCH (21:00)
[2018-09-11] MEDS ORDERED: Losartan 50 MG Tab PO SCH (21:00)
[2018-09-11] MEDS ORDERED: LOVASTATIN 80 MG PO SCH (21:00)
[2018-09-12] MEDS: Pantoprazole 40 MG Tab.CR PO SCH (05:39)
[2018-09-12] MEDS: Docusate Sodium 100 MG Cap PO PRN (05:39)
[2018-09-12] MEDS ORDERED: Pantoprazole 40 MG Tab.CR PO SCH (06:00)
[2018-09-12] MEDS ORDERED: Heparin Sodium 5,000 Units/ML Vial SUBCUT SCH (06:00)
[2018-09-12] MEDS: Heparin Sodium 5,000 Units/ML Vial SUBCUT SCH (06:09)
[2018-09-12 07:04] LABS: ANION GAP 15.2; CHLORIDE,CL 103 mmol/L (101-111); SODIUM,NA 136 mmol/L (135-145)
[2018-09-12] MEDS: Insulin Lispro 100 Units/ML 3 ML Vial SUBCUT SCH ×2 (08:21→12:49)
[2018-09-12] MEDS: Vitamin B6-pyridOXINE 100 MG Tab PO SCH (08:36)
[2018-09-12] MEDS: glipiZIDE 5 MG Tab PO SCH (08:36)
[2018-09-12] MEDS: metFORMIN 500 MG Tab PO SCH (08:36)
[2018-09-12] MEDS: Aspirin 325 MG Tab.EC PO SCH (08:36)
[2018-09-12] MEDS: Metoprolol Succinate 50 MG Tab.ER PO SCH (08:37)
[2018-09-12] MEDS: Prochlorperazine 5 MG Tab PO SCH (08:37)
[2018-09-12] MEDS: Cyanocobalamin (Vitamin B12) 1,000 MCG Tab PO SCH (08:38)
[2018-09-12] MEDS ORDERED: Vitamin B6-pyridOXINE 100 MG Tab PO SCH (09:00)
[2018-09-12] MEDS ORDERED: Aspirin 325 MG Tab.EC PO SCH (09:00)
[2018-09-12] MEDS ORDERED: Furosemide 20 MG Tab PO SCH (09:00)
--- NOTE | 2018-09-12 10:32 | PCM.DCSUM1 ---
Discharge Summary - Hospital Course Free Text/Narrative:: Mr. Darek Yoder is a 77-year-old male with medical history significant for hypertension, hyperlipidemia, type 2 diabetes mellitus, COPD on chronic oxygen therapy, lung cancer on chemo who follows up with Dr. Fields who presents with weakness, severe. He was found to have severe hypokalemia which was replaced both orally and IV and potassium improved during admission. Hypokalemia is likely 2/2 lasix which was prescribed for leg swelling. Leg swelling is also improved I counselled the patient on dietary potassium supplementation: bananas, green leafy vegetables. I also reduced his dose of oral lasix to 20 mg daily (from 60 mg daily). Plan to follow up with PCP in two to three days for BMP check No complaints today. Feels stronger Was seen by PT/OT and okay to go back home. Diagnosis: Stroke: No Modified Alexander Scale: No Symptoms at All Modified Caden Scale Score: 0 - Discharge Data Discharge Date: 09/12/18 Discharge Disposition: Home, Self-Care 01 Condition: Stable - Patient Summary/Data Consults: Consultations 09/11/18 11:18 OT Evaluation and Treatment [CONS] Routine PT Evaluation and Treatment [CONS] Routine - Patient Instructions Diet: Usual Diet as Tolerated Activity: As Tolerated Showering/Bathing: September Shower - Discharge Plan *PRESCRIPTION DRUG MONITORING PROGRAM REVIEWED*: No *COPY OF PRESCRIPTION DRUG MONITORING REPORT IN PATIENT ELLEN: No Prescriptions/Med Rec: Furosemide [Lasix] 20 mg PO DAILY #30 tablet Home Medications: Home Meds Cyanocobalamin (Vitamin B-12) [Vitamin B-12] 1,000 mcg PO DAILY 05/14/18 [ History] Latanoprost/Pf [Latanoprost 0.005% Eye Drop] 1 drop EYEBOTH DAILY 05/14/18 [ History] Losartan [Cozaar] 50 mg PO BEDTIME 05/14/18 [History] Lovastatin 80 mg PO BEDTIME 05/14/18 [History] Metoprolol Succinate [Toprol XL 100mg] 100 mg PO DAILY 05/14/18 [History] Prochlorperazine [Compazine] 10 mg PO DAILY 05/14/18 [History] Pyridoxine HCl [Vitamin B-6] 100 mg PO DAILY 05/14/18 [History] glipiZIDE [Glucotrol] 10 mg PO BID 05/14/18 [History] metFORMIN HCl [Metformin HCl] 1,000 mg PO BID 05/14/18 [History] diphenhydrAMINE [Benadryl] 25 mg PO BEDTIME PRN 06/21/18 [History] Aspirin [Aspirin EC] 325 mg PO DAILY 06/22/18 [History] Acetaminophen 500 mg PO Q4HR PRN 09/11/18 [History] Albuterol Sulfate [Proventil Hfa] 1 - 2 puff INH Q4HR PRN 09/11/18 [History] Docusate Sodium 100 mg PO DAILY PRN 09/11/18 [History] Insulin Aspart [NovoLOG] See Protocol SUBCUT TIDMEALS 09/11/18 [History] Ondansetron [Zofran] 8 mg PO Q8H PRN 09/11/18 [History] Furosemide [Lasix] 20 mg PO DAILY #30 tablet 09/12/18 [Rx] - Discharge Summary/Plan Comment DC Time >30 min.: Yes - General Info Date of Service: 09/12/18 Admission Dx/Problem (Free Text: weakness Subjective Update: No complaints today. Feels stronger Was seen by PT/OT and okay to go back home. - Review of Systems General: Reports: No Symptoms HEENT: Reports: No Symptoms Pulmonary: Reports: Other (chronic O2 use) Cardiovascular: Reports: No Symptoms Gastrointestinal: Reports: No Symptoms Genitourinary: Reports: No Symptoms Musculoskeletal: Reports: No Symptoms Skin: Reports: No Symptoms - Patient Data Vitals - Most Recent: Last Vital Signs Temp 36.3 C 09/12/18 07:51 Pulse 88 09/12/18 08:37 Resp 20 09/12/18 07:51 BP 129/70 09/12/18 08:37 Pulse Ox 96 09/12/18 07:51 Weight - Most Recent: 74.661 kg I&O - Last 24 hours: Intake & Output 09/11/18 09/12/18 09/12/18 22:59 06:59 14:59 Intake Total 200 Output Total 300 Balance -100 Lab Results - Last 24 hrs: Laboratory Results - last 24 hr 09/11/18 09/11/18 09/11/18 Range/Units 11:55 17:02 20:44 WBC (5.0-10.0) 10^3/uL RBC (4.6-6.2) 10^6/uL Hgb (14.0-18.0) g/dL Hct (40.0-54.0) % MCV (80-100) fL MCH (27.0-34.0) pg MCHC (33.0-35.0) g/dL Plt Count (150-450) 10^3/uL Sodium (135-145) mmol/L Potassium (3.6-5.0) mmol/L Chloride (101-111) mmol/L Carbon Dioxide (21.0-31.0) mmol/L Anion Gap BUN (7-18) mg/dL Creatinine (0.6-1.3) mg/dL Est Cr Clr Drug Dosing Estimated GFR (MDRD) Glucose (74-105) mg/dL POC Glucose 182 H 142 H 72 L (83-110) mg/dl Calcium (8.4-10.2) mg/dl 09/12/18 09/12/18 09/12/18 Range/Units 06:02 06:02 07:44 WBC 2.1 L (5.0-10.0) 10^3/uL RBC 3.29 L (4.6-6.2) 10^6/uL Hgb 9.8 L (14.0-18.0) g/dL Hct 30.0 L (40.0-54.0) % MCV 91.2 (80-100) fL MCH 29.8 (27.0-34.0) pg MCHC 32.7 L (33.0-35.0) g/dL Plt Count 304 (150-450) 10^3/uL Sodium 136 (135-145) mmol/L Potassium 4.2 (3.6-5.0) mmol/L Chloride 103 (101-111) mmol/L Carbon Dioxide 22.0 (21.0-31.0) mmol/L Anion Gap 15.2 BUN 11 (7-18) mg/dL Creatinine 0.6 (0.6-1.3) mg/dL Est Cr Clr Drug Dosing TNP Estimated GFR (MDRD) > 60 Glucose 129 H (74-105) mg/dL POC Glucose 122 H (83-110) mg/dl Calcium 8.7 (8.4-10.2) mg/dl Med Orders - Current: Current Medications Albuterol (Proventil Hfa) 0 gm INH Q4H PRN PRN Reason: Wheezing Aspirin (Ecotrin) 325 mg PO DAILY [facility] Last Admin: 09/12/18 08:36 Dose: 325 mg Cyanocobalamin (Vitamin B12) 1,000 mcg PO DAILY [facility] Last Admin: 09/12/18 08:38 Dose: 1,000 mcg Diphenhydramine HCl (Benadryl) 25 mg PO BEDTIME PRN PRN Reason: Itching Docusate Sodium (Colace) 100 mg PO DAILY PRN PRN Reason: Constipation Last Admin: 09/12/18 05:39 Dose: 100 mg Furosemide (Lasix) 60 mg PO DAILY [facility] Last Admin: 09/11/18 12:28 Dose: 60 mg Glipizide (Glucotrol) 10 mg PO BID@0730,1730 [facility] Last Admin: 09/12/18 08:36 Dose: 10 mg Heparin Sodium (Porcine) (Heparin Sodium) 5,000 units SUBCUT Q8H [facility] Last Admin: 09/12/18 05:39 Dose: 5,000 units Insulin Human Lispro (Humalog) 0 unit SUBCUT QIDACANDBED [facility]; Protocol Last Admin: 09/12/18 08:21 Dose: Not Given Latanoprost (Xalatan 0.005% Ophth Soln) 0 ml EYEBOTH BEDTIME [facility] Last Admin: 09/11/18 21:14 Dose: 1 drop Losartan Potassium (Cozaar) 50 mg PO BEDTIME [facility] Last Admin: 09/11/18 21:06 Dose: Not Given Metformin HCl (Glucophage) 1,000 mg PO BIDMEALS [facility] Last Admin: 09/12/18 08:36 Dose: 1,000 mg Metoprolol Succinate (Toprol Xl) 100 mg PO DAILY [facility] Last Admin: 09/12/18 08:37 Dose: 100 mg Non-Formulary Medication (Lovastatin [Lovastatin]) 80 mg PO BEDTIME [facility] Ondansetron HCl (Zofran Odt) 8 mg PO Q8H PRN PRN Reason: Nausea Pantoprazole Sodium (Protonix) 40 mg PO ACBREAKFAST [facility] Last Admin: 09/12/18 05:39 Dose: 40 mg Prochlorperazine Maleate (Compazine) 10 mg PO DAILY [facility] Last Admin: 09/12/18 08:37 Dose: 10 mg Pyridoxine HCl (Vitamin B6-Pyridoxine) 100 mg PO DAILY [facility] Last Admin: 09/12/18 08:36 Dose: 100 mg Discontinued Medications Heparin Sodium (Porcine) (Heparin Sodium) 5,000 units SUBCUT Q8H [facility] Last Admin: 09/12/18 06:09 Dose: Not Given Potassium Chloride (Kcl 10 Meq In Water 100 Ml) Confirm Administered Dose 100 mls @ as directed .ROUTE .STK-MED ONE Stop: 09/11/18 01:54 Last Admin: 09/11/18 07:52 Dose: Not Given Potassium Chloride 20 meq/ (Premix) 100 mls @ 50 mls/hr IV Q2H [facility] Stop: 09/11/18 08:29 Last Admin: 09/11/18 07:54 Dose: Not Given Potassium Chloride (Klor-Con 10) Confirm Administered Dose 40 meq .ROUTE .STK- MED ONE Stop: 09/11/18 01:54 Last Admin: 09/11/18 07:52 Dose: Not Given Potassium Chloride (Klor-Con 10) 40 meq PO ONETIME ONE Stop: 09/11/18 04:31 Last Admin: 09/11/18 07:54 Dose: Not Given - Exam General: Reports: Alert, Oriented HEENT: Reports: Pupils Equal Neck: Reports: Supple Lungs: Reports: Clear to Auscultation Cardiovascular: Reports: Regular Rate, Regular Rhythm GI/Abdominal Exam: Normal Bowel Sounds
[2018-09-12] MEDS: Furosemide 20 MG Tab PO SCH (10:46)
[2018-09-12] MEDS ORDERED: Potassium Chloride 10 MEQ in Premix Bag 1 BAG IV ONE (13:25)
== END 2018-09-12 13:26 | disposition home or self-care (01) | DRG 641 ==
LOC: DL.ED 22:20 → DL.MS 09-11 00:45 → DL.ED 09-11 00:50
PROVIDERS: ADMIT Internal Medicine Nephrology; ATTEND Hospitalist
DX: E87.6 Hypokalemia (principal); C34.91 Malignant neoplasm of unspecified part of right bronchus or lung; I10 Essential (primary) hypertension; E78.5 Hyperlipidemia, unspecified; H40.9 Unspecified glaucoma; E78.00 Pure hypercholesterolemia, unspecified; E53.8 Deficiency of other specified B group vitamins; E11.9 Type 2 diabetes mellitus without complications; T50.1X5A Adverse effect of loop [high-ceiling] diuretics, initial encounter; J44.9 Chronic obstructive pulmonary disease, unspecified; Z87.891 Personal history of nicotine dependence; Z99.81 Dependence on supplemental oxygen; Z79.4 Long term (current) use of insulin; Z79.899 Other long term (current) drug therapy; Z92.21 Personal history of antineoplastic chemotherapy; Z79.52 Long term (current) use of systemic steroids; Z88.8 Allergy status to other drugs, medicaments and biological substances; Z91.018 Allergy to other foods
CPT/HCPCS: 36415; 80048; 80053; 82962; 83605; 85025; 85027; 97162-GP; 99285; A9270-GY; J1642; J1644; J1815; J3480; Q0164

== ENCOUNTER 2019-01-06 08:32 | Emergency (ER) | payer MEDICARE, BC ==
[2019-01-06 09:16] LABS: ANION GAP 13.7; CHLORIDE,CL 104 mmol/L (101-111); SODIUM,NA 138 mmol/L (135-145)
--- NOTE | 2019-01-06 09:23 | CR ---
Clinical history: 78-year-old hypertensive, diabetic male ex-smoker being evaluated for "near syncopal" episode. Interpretation (upright AP portable chest) reveals no acute new cardiopulmonary abnormality since 21 June 2018 exam. Generally poor inspiratory effort crowding and accentuating the lung markings but normal cardiac silhouette without new signs of alveolar edema or dependent pleural fluid accumulation (external air sampling and monitoring leads). No new lung mass, hilar lymphadenopathy or focal lobar pneumonia. No atelectasis/collapse. No pneumothorax. CONCLUSION: No acute cardiopulmonary abnormality.
[2019-01-06] MEDS ORDERED: Sodium Chloride 0.9% 1,000 ML IV ONE (09:31)
--- NOTE | 2019-01-06 09:44 | EDM.PDOC ---
ED HPI GENERAL MEDICAL PROBLEM - General Chief Complaint: Neurological Problem Stated Complaint: AMBULANCE Time Seen by Provider: 01/06/19 09:05 Source of Information: Reports: Patient History Limitations: Reports: No Limitations - History of Present Illness INITIAL COMMENTS - FREE TEXT/NARRATIVE: This 78 yo male patient was brought to the ED by [facility] due to dizziness (near syncope). The patient reports he had some dizziness yesterday while he was supposed to get chemo. The patient reports he did not get chemo yesterday due to increased dizziness. The patient did get IV fluids while in the clinic. The patient reports they also put him on Benzoate for his cough yesterday and has been having increased dizziness since taking that medication. The patient denies any falls or loss of consciousness. Onset: Today Duration: Minutes:, Other Location: Reports: Other Quality: Reports: Other Severity: Moderate Improves with: Reports: Rest Worsens with: Reports: Movement Context: Reports: Other Associated Symptoms: Reports: Syncope (near ) - Related Data Allergies Allergy/AdvReac Type Severity Reaction Status Date / Time enalapril Allergy Cough Verified 01/06/19 08:42 strawberry Allergy Hives Verified 01/06/19 08:42 Home Meds: Home Meds Cyanocobalamin (Vitamin B-12) [Vitamin B-12] 1,000 mcg PO DAILY 05/14/18 [ History] Latanoprost/Pf [Latanoprost 0.005% Eye Drop] 1 drop EYEBOTH DAILY 05/14/18 [ History] Losartan [Cozaar] 50 mg PO BEDTIME 05/14/18 [History] Lovastatin 80 mg PO BEDTIME 05/14/18 [History] Metoprolol Succinate [Toprol XL 100mg] 100 mg PO DAILY 05/14/18 [History] Prochlorperazine [Compazine] 10 mg PO DAILY 05/14/18 [History] Pyridoxine HCl [Vitamin B-6] 100 mg PO DAILY 05/14/18 [History] glipiZIDE [Glucotrol] 10 mg PO BID 05/14/18 [History] metFORMIN HCl [Metformin HCl] 1,000 mg PO BID 05/14/18 [History] diphenhydrAMINE [Benadryl] 25 mg PO BEDTIME PRN 06/21/18 [History] Aspirin [Aspirin EC] 325 mg PO DAILY 06/22/18 [History] Acetaminophen 500 mg PO Q4HR PRN 09/11/18 [History] Albuterol Sulfate [Proventil Hfa] 1 - 2 puff INH Q4HR PRN 09/11/18 [History] Docusate Sodium 100 mg PO DAILY PRN 09/11/18 [History] Insulin Aspart [NovoLOG] See Protocol SUBCUT TIDMEALS 09/11/18 [History] Benzonatate [Tessalon Perle] 100 mg PO TID PRN 01/06/19 [History] Past Medical History HEENT History: Reports: Glaucoma Cardiovascular History: Reports: High Cholesterol, Hypertension Respiratory History: Reports: COPD Gastrointestinal History: Reports: None Genitourinary History: Reports: BPH Musculoskeletal History: Reports: None Neurological History: Reports: None Psychiatric History: Reports: None Endocrine/Metabolic History: Reports: Diabetes, Type II Hematologic History: Reports: B12 Deficiency Immunologic History: Reports: Immunosuppression Oncologic (Cancer) History: Reports: Lung Dermatologic History: Reports: None - Infectious Disease History Infectious Disease History: Reports: None - Past Surgical History Head Surgeries/Procedures: Reports: None HEENT Surgical History: Reports: None Cardiovascular Surgical History: Reports: None Respiratory Surgical History: Reports: None GI Surgical History: Reports: None Male Surgical History: Reports: None Endocrine Surgical History: Reports: None Neurological Surgical History: Reports: None Musculoskeletal Surgical History: Reports: None Oncologic Surgical History: Reports: None Dermatological Surgical History: Reports: None Social & Family History - Family History Family Medical History: Noncontributory - Tobacco Use Smoking Status *Q: Former Smoker Used Tobacco, but Quit: Yes Month/Year Tobacco Last Used: ? - Caffeine Use Caffeine Use: Reports: Coffee - Recreational Drug Use Recreational Drug Use: No ED ROS GENERAL - Review of Systems Review Of Systems: ROS reveals no pertinent complaints other than HPI. - Physical Exam Exam: See Below Exam Limited By: No Limitations General Appearance: Alert, WD/WN, Moderate Distress Eye Exam: Bilateral Eye: EOMI, Normal Inspection, PERRL Ears: Normal External Exam, Normal Canal, Hearing Grossly Normal, Normal TMs Nose: Normal Inspection, Normal Mucosa, No Blood Throat/Mouth: Normal Inspection, Normal Lips, Normal Teeth, Normal Gums, Normal Oropharynx, Normal Voice, No Airway Compromise Head Exam: Atraumatic, Normocephalic Neck: Normal Inspection, Supple, Non-Tender, Full Range of Motion Respiratory/Chest: Decreased Breath Sounds (diffuse) Cardiovascular: Normal Peripheral Pulses, Regular Rate, Rhythm, No Edema, No Gallop, No JVD, No Murmur, No Rub (Male) Exam: Deferred Rectal (Males) Exam: Deferred Neuro Exam (Abbreviated): Alert, Oriented, CN II-XII Intact, Normal Cognition, Normal Gait, Normal Reflexes, No Motor/Sensory Deficits Back Exam: Normal Inspection, Full Range of Motion, NT Extremities: Normal Inspection, Normal Range of Motion, Non-Tender, No Pedal Edema, Normal Capillary Refill Psychiatric: Normal Affect, Normal Mood Skin Exam: Warm, Dry, Intact, Normal Color, No Rash Course - Vital Signs Last Recorded V/S: Last Vital Signs Temp 36.4 C 01/06/19 08:42 Pulse 95 01/06/19 08:42 Resp 18 01/06/19 08:42 BP 131/77 01/06/19 08:42 Pulse Ox 95 01/06/19 08:42 Orthostatic Blood Pressure [ 113/75 Standing] Orthostatic Blood Pressure [ 130/74 Sitting] Orthostatic Blood Pressure [ 143/89 Supine] - Orders/Labs/Meds Orders: Active Orders 24 hr Category Date Time Status EKG Documentation Completion [RC] URGENT Care 01/06/19 08:35 Active Labs: Laboratory Tests 01/06/19 01/06/19 01/06/19 Range/Units 08:48 08:48 09:09 WBC 7.6 (5.0-10.0) 10^3/uL RBC 4.71 (4.6-6.2) 10^6/uL Hgb 12.0 L D (14.0-18.0) g/dL Hct 37.3 L (40.0-54.0) % MCV 79.2 L D (80-100) fL MCH 25.5 L (27.0-34.0) pg MCHC 32.2 L (33.0-35.0) g/dL Plt Count 278 (150-450) 10^3/uL Neut % (Auto) 82.3 H (42.2-75.2) % Lymph % (Auto) 7.5 L (20.5-50.1) % [place] % (Auto) 8.4 H (2-8) % Eos % (Auto) 1.3 (1.0-3.0) % Baso % (Auto) 0.5 (0.0-1.0) % Sodium 138 (135-145) mmol/L Potassium 3.7 (3.6-5.0) mmol/L Chloride 104 (101-111) mmol/L Carbon Dioxide 24.0 (21.0-31.0) mmol/L Anion Gap 13.7 BUN 9 (7-18) mg/dL Creatinine 0.5 L (0.6-1.3) mg/dL Est Cr Clr Drug Dosing 123.73 mL/min Estimated GFR (MDRD) > 60 BUN/Creatinine Ratio 18.00 Glucose 221 H (74-105) mg/dL Calcium 9.3 (8.4-10.2) mg/dl Total Bilirubin 0.6 (0.2-1.0) mg/dL AST 17 (10-42) IU/L ALT 16 (10-60) IU/L Alkaline Phosphatase 64 (42-121) IU/L Troponin I < 0.02 (0.00-0.02) ng/ml Total Protein 7.2 (6.7-8.2) g/dl Albumin 3.6 (3.2-5.5) g/dl Globulin 3.6 Albumin/Globulin Ratio 1.00 Urine Color Yellow (YELLOW) Urine Appearance Clear (CLEAR) Urine pH 7.0 (5.0-9.0) Ur Specific [place] 1.015 (1.005-1.030) Urine Protein Negative (NEGATIVE) Urine Glucose (UA) 100 H (NEGATIVE) Urine Ketones Negative (NEGATIVE) Urine Occult Blood Negative (NEGATIVE) Urine Nitrite Negative (NEGATIVE) Urine Bilirubin Negative (NEGATIVE) Urine Urobilinogen 0.2 (0.2-1.0) mg/dL Ur Leukocyte Esterase Negative (NEGATIVE) Meds: Medications Discontinued Medications Generic Name Dose Route Start Last Admin Trade Name Freq PRN Reason Stop Dose Admin Sodium Chloride 1,000 mls @ 999 mls/hr 01/06/19 09:31 01/06/19 09:40 Normal Saline IV 01/06/19 10:31 999 mls/hr .BOLUS ONE Administration Departure - Departure Time of Disposition: 11:01 Disposition: Home, Self-Care 01 Condition: Fair Clinical Impression: Near syncope - Discharge Information *PRESCRIPTION DRUG MONITORING PROGRAM REVIEWED*: Not Applicable *COPY OF PRESCRIPTION DRUG MONITORING REPORT IN PATIENT ELLEN: Not Applicable Instructions: Near-Syncope, [id number] Forms: ED Department Discharge Care Plan Goals: The patient and family were advised of the examination, EKG, x-ray and lab results during the visit. The patient was given a liter of IV fluid while in the ED. The patient was encouraged to follow-up with his primary care facility. If the patient has any additional symptoms or concerns, the patient should either return to the emergency department or visit his primary care facility. - My Orders Last 24 Hours: My Active Orders 01/06/19 08:35 EKG Documentation Completion [RC] URGENT - Assessment/Plan Last 24 Hours: My Active Orders 01/06/19 08:35 EKG Documentation Completion [RC] URGENT
== END 2019-01-06 11:07 | disposition home or self-care (01) ==
LOC: DL.ED 08:32
DX: R55 Syncope and collapse (principal); I10 Essential (primary) hypertension; E78.00 Pure hypercholesterolemia, unspecified; J44.9 Chronic obstructive pulmonary disease, unspecified; E11.9 Type 2 diabetes mellitus without complications; Z79.82 Long term (current) use of aspirin; Z79.4 Long term (current) use of insulin; Z79.899 Other long term (current) drug therapy; Z87.891 Personal history of nicotine dependence
CPT/HCPCS: 36415; 71045; 80053; 81003; 84484; 85025; 93005; 96360; 99285; J7030

== ENCOUNTER 2019-01-07 10:34 | Observation (INO) | payer MEDICARE, BC ==
[2019-01-07 13:52] LABS: ANION GAP 13.8; CHLORIDE,CL 105 mmol/L (101-111); SODIUM,NA 139 mmol/L (135-145)
--- NOTE | 2019-01-07 14:47 | EDM.PDOC ---
Scribed by Karla Urbano 01/07/19 1088 for Pedro Padilla PA ED HPI GENERAL MEDICAL PROBLEM - General Chief Complaint: General Stated Complaint: DIZZY Time Seen by Provider: 01/07/19 14:00 Source of Information: Reports: Patient, RN, RN Notes Reviewed History Limitations: Reports: No Limitations - History of Present Illness INITIAL COMMENTS - FREE TEXT/NARRATIVE: Patient presents to ER with complaint of dizziness. He had intermittent dizziness today with 3 episodes at home and 2 while here in the ER. Patient states that his heart rate was in the 180s at home this morning. He has a history of lung CA. He has received chemotherapy. On in the clinic he had a liter of fluid. Yesterday he came to the ER and received another liter of fluid. Onset: Gradual Duration: Constant Location: Reports: Generalized Severity: Moderate Improves with: Reports: None Worsens with: Reports: None Associated Symptoms: Reports: No Other Symptoms - Related Data Allergies Allergy/AdvReac Type Severity Reaction Status Date / Time enalapril Allergy Cough Verified 01/06/19 08:42 strawberry Allergy Hives Verified 01/06/19 08:42 Home Meds: Home Meds Cyanocobalamin (Vitamin B-12) [Vitamin B-12] 1,000 mcg PO DAILY 05/14/18 [ History] Latanoprost/Pf [Latanoprost 0.005% Eye Drop] 1 drop EYEBOTH DAILY 05/14/18 [ History] Losartan [Cozaar] 50 mg PO BEDTIME 05/14/18 [History] Lovastatin 80 mg PO BEDTIME 05/14/18 [History] Metoprolol Succinate [Toprol XL 100mg] 100 mg PO DAILY 05/14/18 [History] Prochlorperazine [Compazine] 10 mg PO DAILY 05/14/18 [History] Pyridoxine HCl [Vitamin B-6] 100 mg PO DAILY 05/14/18 [History] glipiZIDE [Glucotrol] 10 mg PO BID 05/14/18 [History] metFORMIN HCl [Metformin HCl] 1,000 mg PO BID 05/14/18 [History] diphenhydrAMINE [Benadryl] 25 mg PO BEDTIME PRN 06/21/18 [History] Aspirin [Aspirin EC] 325 mg PO DAILY 06/22/18 [History] Acetaminophen 500 mg PO Q4HR PRN 09/11/18 [History] Albuterol Sulfate [Proventil Hfa] 1 - 2 puff INH Q4HR PRN 09/11/18 [History] Docusate Sodium 100 mg PO DAILY PRN 09/11/18 [History] Insulin Aspart [NovoLOG] See Protocol SUBCUT TIDMEALS 09/11/18 [History] Benzonatate [Tessalon Perle] 100 mg PO TID PRN 01/06/19 [History] Past Medical History HEENT History: Reports: Glaucoma Cardiovascular History: Reports: High Cholesterol, Hypertension Respiratory History: Reports: COPD Gastrointestinal History: Reports: None Genitourinary History: Reports: BPH Musculoskeletal History: Reports: None Neurological History: Reports: None Psychiatric History: Reports: None Endocrine/Metabolic History: Reports: Diabetes, Type II Hematologic History: Reports: B12 Deficiency Immunologic History: Reports: Immunosuppression Oncologic (Cancer) History: Reports: Lung Dermatologic History: Reports: None - Infectious Disease History Infectious Disease History: Reports: None - Past Surgical History HEENT Surgical History: Reports: None Cardiovascular Surgical History: Reports: None Respiratory Surgical History: Reports: None GI Surgical History: Reports: None Male Surgical History: Reports: None Endocrine Surgical History: Reports: None Neurological Surgical History: Reports: None Musculoskeletal Surgical History: Reports: None Oncologic Surgical History: Reports: None Dermatological Surgical History: Reports: None Social & Family History - Family History Family Medical History: Noncontributory - Tobacco Use Smoking Status *Q: Former Smoker Years of Tobacco use: 50 Packs/Tins Daily: 1 Used Tobacco, but Quit: Yes Month/Year Tobacco Last Used: 2017 - Caffeine Use Caffeine Use: Reports: Coffee - Recreational Drug Use Recreational Drug Use: No ED ROS GENERAL - Review of Systems Review Of Systems: ROS reveals no pertinent complaints other than HPI. ED EXAM, GENERAL - Physical Exam Exam: See Below Exam Limited By: No Limitations General Appearance: Alert, WD/WN, Anxious Eye Exam: Bilateral Eye: EOMI, Normal Inspection, PERRL Ears: Normal External Exam, Normal Canal, Hearing Grossly Normal, Normal TMs Nose: Normal Inspection, Normal Mucosa, No Blood Throat/Mouth: Normal Inspection, Normal Lips, Normal Teeth, Normal Gums, Normal Oropharynx, Normal Voice, No Airway Compromise Head: Atraumatic, Normocephalic Neck: Normal Inspection, Supple, Non-Tender, Full Range of Motion Respiratory/Chest: No Respiratory Distress, No Accessory Muscle Use, Chest Non- Tender, Rhonchi (left sided) Cardiovascular: Normal Peripheral Pulses, Regular Rate, Rhythm, No Edema, No Gallop, No JVD, No Murmur, No Rub GI/Abdominal: Normal Bowel Sounds, Soft, Non-Tender, No Organomegaly, No Distention, No Abnormal Bruit, No Mass (Male) Exam: Deferred Rectal (Males) Exam: Deferred Back Exam: Normal Inspection, Full Range of Motion, NT Extremities: Normal Inspection, Normal Range of Motion, Non-Tender, Normal Capillary Refill, No Pedal Edema Neurological: Alert, Oriented, CN II-XII Intact, Normal Cognition, Normal Gait, Normal Reflexes, No Motor/Sensory Deficits Psychiatric: Normal Affect, Normal Mood Skin Exam: Warm, Dry, Intact, Normal Color, No Rash Lymphatic: No Adenopathy Course - Vital Signs Last Recorded V/S: Last Vital Signs Temp 36.7 C 01/07/19 11:20 Pulse 88 01/07/19 11:20 Resp 16 01/07/19 11:20 BP 117/60 01/07/19 11:20 Pulse Ox 98 01/07/19 11:20 - Orders/Labs/Meds Orders: Active Orders 24 hr Category Date Time Status EKG 12 Lead [EKG Documentation Completion] [RC] STAT Care 01/07/19 13:17 Active UA RFX VICTOR MANUEL AND CULT IF INDIC [URIN] Stat Lab 01/07/19 13:28 Ordered Labs: Laboratory Tests 01/07/19 01/07/19 Range/Units 13:14 13:14 WBC 8.5 (5.0-10.0) 10^3/uL RBC 4.93 (4.6-6.2) 10^6/uL Hgb 12.6 L (14.0-18.0) g/dL Hct 38.8 L (40.0-54.0) % MCV 78.7 L (80-100) fL MCH 25.6 L (27.0-34.0) pg MCHC 32.5 L (33.0-35.0) g/dL Plt Count 342 (150-450) 10^3/uL Neut % (Auto) 82.1 H (42.2-75.2) % Lymph % (Auto) 8.4 L (20.5-50.1) % [place] % (Auto) 8.5 H (2-8) % Eos % (Auto) 0.6 L (1.0-3.0) % Baso % (Auto) 0.4 (0.0-1.0) % Sodium 139 (135-145) mmol/L Potassium 3.8 (3.6-5.0) mmol/L Chloride 105 (101-111) mmol/L Carbon Dioxide 24.0 (21.0-31.0) mmol/L Anion Gap 13.8 BUN 10 (7-18) mg/dL Creatinine 0.5 L (0.6-1.3) mg/dL Est Cr Clr Drug Dosing 123.67 mL/min Estimated GFR (MDRD) > 60 BUN/Creatinine Ratio 20.00 Glucose 180 H (74-105) mg/dL Calcium 9.5 (8.4-10.2) mg/dl Total Bilirubin 0.7 (0.2-1.0) mg/dL AST 19 (10-42) IU/L ALT 16 (10-60) IU/L Alkaline Phosphatase 64 (42-121) IU/L Troponin I < 0.02 (0.00-0.02) ng/ml Total Protein 7.3 (6.7-8.2) g/dl Albumin 3.7 (3.2-5.5) g/dl Globulin 3.6 Albumin/Globulin Ratio 1.03 Departure - Departure Time of Disposition: 14:43 Disposition: Admitted As Inpatient 67 Condition: Fair Clinical Impression: Weakness Syncope Qualifiers: Syncope type: unspecified Qualified Code(s): R55 - Syncope and collapse - Discharge Information *PRESCRIPTION DRUG MONITORING PROGRAM REVIEWED*: Not Applicable *COPY OF PRESCRIPTION DRUG MONITORING REPORT IN PATIENT ELLEN: Not Applicable Care Plan Goals: Discussed the history, examination, lab and EKG results with Dr. Sun. Dr. Sun accepted the patient as an observation patient at [facility] with a physical therapy assessment to be completed today. - My Orders Last 24 Hours: My Active Orders 01/07/19 13:17 EKG 12 Lead [EKG Documentation Completion] [RC] STAT 01/07/19 13:28 UA RFX VICTOR MANUEL AND CULT IF INDIC [URIN] Stat - Assessment/Plan Last 24 Hours: My Active Orders 01/07/19 13:17 EKG 12 Lead [EKG Documentation Completion] [RC] STAT 01/07/19 13:28 UA RFX VICTOR MANUEL AND CULT IF INDIC [URIN] Stat I have read and agree with the documentation that has been completed regarding this visit. By signing this record, I attest that the documentation was completed in my physical presence and is an accurate record of the encounter.
[2019-01-07] MEDS ORDERED: Ondansetron 4 MG Tab.DIS PO PRN (15:17)
[2019-01-07] MEDS ORDERED: Ondansetron 4 MG/2 ML SDV IVPUSH PRN (15:17)
[2019-01-07] MEDS ORDERED: Promethazine 25 MG/ML SDV IM PRN (15:17)
[2019-01-07] MEDS ORDERED: Promethazine 25 MG Tab PO PRN (15:17)
[2019-01-07] MEDS ORDERED: Docusate Sodium 100 MG Cap **OWN MED PO PRN (15:21)
[2019-01-07] MEDS ORDERED: diphenhydrAMINE 25 MG Tab PO PRN (15:21)
--- NOTE | 2019-01-07 15:29 | PCM.HP ---
H&P History of Present Illness - General Date of Service: 01/07/19 Admit Problem/Dx: Admission Diagnosis/Problem Admission Diagnosis/Problem Dizziness Source of Information: Patient, Old Records, Provider - History of Present Illness Initial Comments - Free Text/Narative: Patient is a 78 y.o male with history of non-small cell lung cancer currently receiving treatments by Dr. Villalba, HTN, DLP, PAD, osteoarthritis, and chemotherapy-assoicated anemia who presented to the ED with complaints of dizziness x3 at home today and x2 in the ED. Reports that he gets dizzy with spinning sensation, sometimes the room and sometimes himself and the room spinning. States today his heart rate was in the 180s on his pulse ox device. He denies falls. Symptoms have been present for about a week. He denies chest pain, shortness of breath, n/v/d/c, dysuria, hematuria, melena, hematochezia, hematemesis, or hemoptysis. He denies night sweats, heat or cold intolerance, and unintended weight changes. He reports nocturia, stating he goes to the bathroom every hour at night. Quit tobacco and alcohol use in 2017. Denies illicit drug use. - Related Data Allergies/Adverse Reactions: Allergies Allergy/AdvReac Type Severity Reaction Status Date / Time enalapril Allergy Cough Verified 01/07/19 15:17 strawberry Allergy Hives Verified 01/07/19 15:17 Home Medications: Home Meds Cyanocobalamin (Vitamin B-12) [Vitamin B-12] 1,000 mcg PO DAILY 05/14/18 [ History] Latanoprost/Pf [Latanoprost 0.005% Eye Drop] 1 drop EYEBOTH DAILY 05/14/18 [ History] Losartan [Cozaar] 50 mg PO BEDTIME 05/14/18 [History] Lovastatin 80 mg PO BEDTIME 05/14/18 [History] Metoprolol Succinate [Toprol XL 100mg] 100 mg PO DAILY 05/14/18 [History] Prochlorperazine [Compazine] 10 mg PO DAILY 05/14/18 [History] Pyridoxine HCl [Vitamin B-6] 100 mg PO DAILY 05/14/18 [History] glipiZIDE [Glucotrol] 10 mg PO BID 05/14/18 [History] metFORMIN HCl [Metformin HCl] 1,000 mg PO BID 05/14/18 [History] diphenhydrAMINE [Benadryl] 25 mg PO BEDTIME PRN 06/21/18 [History] Aspirin [Aspirin EC] 325 mg PO DAILY 06/22/18 [History] Docusate Sodium 100 mg PO DAILY PRN 09/11/18 [History] Past Medical History HEENT History: Reports: Glaucoma Cardiovascular History: Reports: High Cholesterol, Hypertension Respiratory History: Reports: COPD Gastrointestinal History: Reports: None Genitourinary History: Reports: BPH Musculoskeletal History: Reports: None Neurological History: Reports: None Psychiatric History: Reports: None Endocrine/Metabolic History: Reports: Diabetes, Type II Hematologic History: Reports: B12 Deficiency Immunologic History: Reports: Immunosuppression Oncologic (Cancer) History: Reports: Lung Dermatologic History: Reports: None - Infectious Disease History Infectious Disease History: Reports: None - Past Surgical History HEENT Surgical History: Reports: None Cardiovascular Surgical History: Reports: None Respiratory Surgical History: Reports: None GI Surgical History: Reports: None Male Surgical History: Reports: None Endocrine Surgical History: Reports: None Neurological Surgical History: Reports: None Musculoskeletal Surgical History: Reports: None Oncologic Surgical History: Reports: None Dermatological Surgical History: Reports: None Social & Family History - Family History Family Medical History: Noncontributory - Tobacco Use Smoking Status *Q: Former Smoker Years of Tobacco use: 50 Packs/Tins Daily: 1 Used Tobacco, but Quit: Yes Month/Year Tobacco Last Used: 2017 - Caffeine Use Caffeine Use: Reports: Coffee - Recreational Drug Use Recreational Drug Use: No H&P Review of Systems - Review of Systems: Review Of Systems: ROS reveals no pertinent complaints other than HPI. Exam - Exam Exam: See Below - Vital Signs Vital Signs: Last Vital Signs Temp 98.5 F 01/07/19 14:59 Pulse 86 01/07/19 14:59 Resp 24 H 01/07/19 14:59 BP 107/68 01/07/19 14:59 Pulse Ox 96 01/07/19 14:59 Weight: 155 lb 12.8 oz - Exam General: Alert, Oriented, Cooperative, Mild Distress HEENT: Conjunctiva Clear, EOMI, Hearing Intact, Mucosa Moist & [place] Neck: Supple, Trachea Midline Lungs: Clear to Auscultation, Normal Respiratory Effort Cardiovascular: Regular Rate, Regular Rhythm, Normal S1, Normal S2 GI/Abdominal Exam: Normal Bowel Sounds, Soft, Non-Tender, No Distention Extremities: Normal Inspection, Non-Tender, No Pedal Edema Skin: Warm, Dry, Intact Neuro Extensive - Mental Status: Alert, Oriented x3, Normal Mood/Affect Neuro Extensive - Motor, Sensory, Reflexes: CN II-XII Intact Psychiatric: Alert, Normal Affect, Normal Mood - Patient Data Lab Results Last 24 hrs: Laboratory Results - last 24 hr 01/07/19 01/07/19 Range/Units 13:14 13:14 WBC 8.5 (5.0-10.0) 10^3/uL RBC 4.93 (4.6-6.2) 10^6/uL Hgb 12.6 L (14.0-18.0) g/dL Hct 38.8 L (40.0-54.0) % MCV 78.7 L (80-100) fL MCH 25.6 L (27.0-34.0) pg MCHC 32.5 L (33.0-35.0) g/dL Plt Count 342 (150-450) 10^3/uL Neut % (Auto) 82.1 H (42.2-75.2) % Lymph % (Auto) 8.4 L (20.5-50.1) % [place] % (Auto) 8.5 H (2-8) % Eos % (Auto) 0.6 L (1.0-3.0) % Baso % (Auto) 0.4 (0.0-1.0) % Sodium 139 (135-145) mmol/L Potassium 3.8 (3.6-5.0) mmol/L Chloride 105 (101-111) mmol/L Carbon Dioxide 24.0 (21.0-31.0) mmol/L Anion Gap 13.8 BUN 10 (7-18) mg/dL Creatinine 0.5 L (0.6-1.3) mg/dL Est Cr Clr Drug Dosing 123.67 mL/min Estimated GFR (MDRD) > 60 BUN/Creatinine Ratio 20.00 Glucose 180 H (74-105) mg/dL Calcium 9.5 (8.4-10.2) mg/dl Total Bilirubin 0.7 (0.2-1.0) mg/dL AST 19 (10-42) IU/L ALT 16 (10-60) IU/L Alkaline Phosphatase 64 (42-121) IU/L Troponin I < 0.02 (0.00-0.02) ng/ml Total Protein 7.3 (6.7-8.2) g/dl Albumin 3.7 (3.2-5.5) g/dl Globulin 3.6 Albumin/Globulin Ratio 1.03 Result Diagrams: 01/07/19 13:14 01/07/19 13:14 - Problem List (1) Vertigo SNOMED Code(s): 652109169 ICD Code: R42 - DIZZINESS AND GIDDINESS Status: Acute Current Visit: Yes (2) Non-small cell lung cancer SNOMED Code(s): 207641510 ICD Code: C34.90 - MALIGNANT NEOPLASM OF UNSP PART OF UNSP BRONCHUS OR LUNG Status: Acute Current Visit: No (3) Type 2 diabetes mellitus SNOMED Code(s): 17124952 ICD Code: E11.9 - TYPE 2 DIABETES MELLITUS WITHOUT COMPLICATIONS Status: Acute Current Visit: No (4) Hyperlipidemia SNOMED Code(s): 23684971 ICD Code: E78.5 - HYPERLIPIDEMIA, UNSPECIFIED Status: Acute Current Visit : No (5) Near syncope SNOMED Code(s): 508104045 ICD Code: R55 - SYNCOPE AND COLLAPSE Status: Acute Current Visit: No Problem List Initiated/Reviewed/Updated: Yes Orders Last 24hrs: Active Orders 24 hr Category Date Time Status Admission Diagnosis [ADT] Stat ADT 01/07/19 14:45 Ordered Admission Status [Patient Status] [ADT] Routine ADT 01/07/19 14:45 Active Blood Glucose Check, Bedside [RC] QIDACANDBED Care 01/07/19 15:17 Ordered EKG 12 Lead [EKG Documentation Completion] [RC] STAT Care 01/07/19 13:17 Active Height and Weight [RC] UPON Care 01/07/19 15:17 Ordered Intake and Output [RC] QSHIFT Care 01/07/19 15:17 Ordered Oxygen Therapy [RC] PRN Care 01/07/19 15:17 Ordered Up With Assistance [RC] ASDIRECTED Care 01/07/19 15:17 Ordered VTE/DVT Education [RC] PER UNIT ROUTINE Care 01/07/19 15:17 Ordered Vital Signs [RC] Q4H Care 01/07/19 15:17 Ordered Consult to Physical Therapy [PT Evaluation and Cons 01/07/19 15:00 Active Treatment] [CONS] Routine Regular Diet [DIET] Diet 01/07/19 Dinner Ordered BASIC METABOLIC PANEL,BMP [CHEM] AM Lab 01/08/19 05:11 Ordered MAGNESIUM [CHEM] AM Lab 01/08/19 05:11 Ordered PHOSPHORUS [CHEM] AM Lab 01/08/19 05:11 Ordered UA RFX VICTOR MANUEL AND CULT IF INDIC [URIN] Stat Lab 01/07/19 13:28 Ordered Acetaminophen [Tylenol] Med 01/07/19 15:17 Ordered 650 mg PO Q6H PRN Cyanocobalamin (Vitamin B12) [Vitamin B12] Med 01/08/19 09:00 Ordered 1,000 mcg PO DAILY Docusate Sodium [Colace] Med 01/07/19 15:21 Ordered 100 mg PO DAILY PRN Enoxaparin [Lovenox] Med 01/08/19 09:00 Ordered 40 mg SUBCUT DAILY Latanoprost/Pf [Latanoprost 0.005% Eye Drop] Med 01/08/19 09:00 Ordered 1 drop EYEBOTH DAILY Losartan [Cozaar] Med 01/07/19 21:00 Ordered 50 mg PO BEDTIME Lovastatin [Lovastatin] Med 01/07/19 21:00 Ordered 80 mg PO BEDTIME Metoprolol Succinate [Toprol XL 100mg] Med 01/08/19 09:00 Ordered 100 mg PO DAILY Ondansetron [Zofran ODT] Med 01/07/19 15:17 Ordered 4 mg PO Q6H PRN Ondansetron [Zofran] Med 01/07/19 15:17 Ordered 4 mg IVPUSH Q6H PRN Prochlorperazine [Compazine] Med 01/08/19 09:00 Ordered 10 mg PO DAILY Promethazine [Phenergan] Med 01/07/19 15:17 Ordered 25 mg PO Q6H PRN Promethazine [Phenergan] Med 01/07/19 15:17 Ordered 6.25 mg IM Q6H PRN Sodium Chloride 0.9% @ 125 MLS/HR (1000ml) Med 01/07/19 15:30 Ordered Sodium Chloride 0.9% [Normal Saline] 1,000 ml IV ASDIRECTED Vitamin B6-pyridOXINE Med 01/08/19 09:00 Ordered 100 mg PO DAILY diphenhydrAMINE [Benadryl] Med 01/07/19 15:21 Ordered 25 mg PO BEDTIME PRN Resuscitation Status Routine Resus Stat 01/07/19 15:17 Ordered Medication Orders Acetaminophen (Tylenol) 650 mg PO Q6H PRN PRN Reason: Pain Cyanocobalamin (Vitamin B12) 1,000 mcg PO DAILY [facility] Diphenhydramine HCl (Benadryl) 25 mg PO BEDTIME PRN PRN Reason: Itching Docusate Sodium (Colace) 100 mg PO DAILY PRN PRN Reason: Constipation Enoxaparin Sodium (Lovenox) 40 mg SUBCUT DAILY [facility] Sodium Chloride (Normal Saline) 1,000 mls @ 125 mls/hr IV ASDIRECTED [facility] Losartan Potassium (Cozaar) 50 mg PO BEDTIME [facility] Non-Formulary Medication (Latanoprost/Pf [Latanoprost 0.005% Eye Drop]) 1 drop EYEBOTH DAILY [facility] Non-Formulary Medication (Lovastatin [Lovastatin]) 80 mg PO BEDTIME [facility] Non-Formulary Medication (Metoprolol Succinate [Toprol Xl 100mg]) 100 mg PO DAILY [facility] Non-Formulary Medication (Prochlorperazine [Compazine]) 10 mg PO DAILY [facility] Ondansetron HCl (Zofran Odt) 4 mg PO Q6H PRN PRN Reason: nausea, able to take PO Ondansetron HCl (Zofran) 4 mg IVPUSH Q6H PRN PRN Reason: Nausea/Vomiting Promethazine HCl (Phenergan) 25 mg PO Q6H PRN PRN Reason: nausea, able to take PO Promethazine HCl (Phenergan) 6.25 mg IM Q6H PRN PRN Reason: Nausea/Vomiting Pyridoxine HCl (Vitamin B6-Pyridoxine) 100 mg PO DAILY [facility] Assessment/Plan Comment:: #Vertigo #Near syncope: uncertain etiology. Patient orthostatic by HR in the ED. - Refer for observation - Ambulate with assistance - PT/OT - IV fluid resuscitation - CT brain to rule out intracranial lesion - EKG - Monitor and replete electrolytes - TSH #HTN: BP at goal. 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 DM II: - Hold metformin and oral hypoglycemics - SSI with hypoglycemia protocol DVT PPx: Lovenox GI PPx: Diabetic diet Code status: Full Code.
[2019-01-07] MEDS ORDERED: Glucagon,Human Recombinant 1 MG Vial IM PRN (15:40)
[2019-01-07] MEDS ORDERED: 50% Dextrose in Water 50 ML Syringe IVPUSH PRN (15:40)
[2019-01-07] MEDS: Sodium Chloride 0.9% 1,000 ML IV SCH (16:12)
[2019-01-07] MEDS: Insulin Lispro 100 Units/ML 3 ML Vial SUBCUT SCH ×2 (17:25→21:05)
[2019-01-07] MEDS: Acetaminophen 325 MG Tab PO PRN (19:47)
[2019-01-07] MEDS: LOVASTATIN 40 MG PO SCH (21:30)
[2019-01-07] MEDS: Latanoprost 0.005% Ophth Soln 2.5 ML Bottle **OWN MED EYEBOTH SCH (21:31)
[2019-01-08] MEDS: Sodium Chloride 0.9% 1,000 ML IV SCH ×2 (00:12→08:17)
[2019-01-08 06:49] LABS: ANION GAP 12.6; CHLORIDE,CL 106 mmol/L (101-111); SODIUM,NA 138 mmol/L (135-145)
[2019-01-08] MEDS: Insulin Lispro 100 Units/ML 3 ML Vial SUBCUT SCH ×4 (07:55→20:37)
[2019-01-08] MEDS ORDERED: Vitamin B6-pyridOXINE 100 MG Tab PO SCH (09:00)
[2019-01-08] MEDS: CYANOCOBALAMIN 1000 MCG PO SCH (09:19)
[2019-01-08] MEDS: METOPROLOL SUCCINATE 100 MG PO SCH (09:19)
[2019-01-08] MEDS: Enoxaparin 40 MG/0.4 ML Syringe SUBCUT SCH (09:20)
--- NOTE | 2019-01-08 11:50 | PCM.PN ---
- General Info Date of Service: 01/08/19 Admission Dx/Problem (Free Text): Admission Diagnosis/Problem Admission Diagnosis/Problem Dizziness Subjective Update: No acute events overnight. Reports that he had 2 episodes of vertigo overnight and a recurrence this morning. Denies chest pain, shortness of breath, f/c, n/v/ d/c, dysuria, or any new complaints. - Patient Data Vitals - Most Recent: Last Vital Signs Temp 98.4 F 01/08/19 08:00 Pulse 80 01/08/19 08:00 Resp 24 H 01/08/19 08:00 BP 144/74 H 01/08/19 08:00 Pulse Ox 93 L 01/08/19 08:00 Weight - Most Recent: 155 lb 12.8 oz I&O - Last 24 Hours: Intake & Output 01/07/19 01/08/19 01/08/19 22:59 06:59 14:59 Intake Total 900 650 460 Output Total 700 Balance 900 -50 460 Lab Results Last 24 Hours: Laboratory Results - last 24 hr 01/07/19 01/07/19 01/07/19 Range/Units 13:14 13:14 13:14 WBC 8.5 (5.0-10.0) 10^3/uL RBC 4.93 (4.6-6.2) 10^6/uL Hgb 12.6 L (14.0-18.0) g/dL Hct 38.8 L (40.0-54.0) % MCV 78.7 L (80-100) fL MCH 25.6 L (27.0-34.0) pg MCHC 32.5 L (33.0-35.0) g/dL Plt Count 342 (150-450) 10^3/uL Neut % (Auto) 82.1 H (42.2-75.2) % Lymph % (Auto) 8.4 L (20.5-50.1) % [place] % (Auto) 8.5 H (2-8) % Eos % (Auto) 0.6 L (1.0-3.0) % Baso % (Auto) 0.4 (0.0-1.0) % Sodium 139 (135-145) mmol/L Potassium 3.8 (3.6-5.0) mmol/L Chloride 105 (101-111) mmol/L Carbon Dioxide 24.0 (21.0-31.0) mmol/L Anion Gap 13.8 BUN 10 (7-18) mg/dL Creatinine 0.5 L (0.6-1.3) mg/dL Est Cr Clr Drug Dosing 123.67 mL/min Estimated GFR (MDRD) > 60 BUN/Creatinine Ratio 20.00 Glucose 180 H (74-105) mg/dL POC Glucose (83-110) mg/dl Calcium 9.5 (8.4-10.2) mg/dl Phosphorus (2.5-4.6) mg/dL Magnesium (1.8-2.5) mg/dL Total Bilirubin 0.7 (0.2-1.0) mg/dL AST 19 (10-42) IU/L ALT 16 (10-60) IU/L Alkaline Phosphatase 64 (42-121) IU/L Troponin I < 0.02 (0.00-0.02) ng/ml Total Protein 7.3 (6.7-8.2) g/dl Albumin 3.7 (3.2-5.5) g/dl Globulin 3.6 Albumin/Globulin Ratio 1.03 TSH, Ultra Sensitive 0.96 (0.45-5.33) uIu/mL Urine Color (YELLOW) Urine Appearance (CLEAR) Urine pH (5.0-9.0) Ur Specific [place] (1.005-1.030) Urine Protein (NEGATIVE) Urine Glucose (UA) (NEGATIVE) Urine Ketones (NEGATIVE) Urine Occult Blood (NEGATIVE) Urine Nitrite (NEGATIVE) Urine Bilirubin (NEGATIVE) Urine Urobilinogen (0.2-1.0) mg/dL Ur Leukocyte Esterase (NEGATIVE) 01/07/19 01/07/19 01/07/19 Range/Units 16:59 20:11 21:00 WBC (5.0-10.0) 10^3/uL RBC (4.6-6.2) 10^6/uL Hgb (14.0-18.0) g/dL Hct (40.0-54.0) % MCV (80-100) fL MCH (27.0-34.0) pg MCHC (33.0-35.0) g/dL Plt Count (150-450) 10^3/uL Neut % (Auto) (42.2-75.2) % Lymph % (Auto) (20.5-50.1) % [place] % (Auto) (2-8) % Eos % (Auto) (1.0-3.0) % Baso % (Auto) (0.0-1.0) % Sodium (135-145) mmol/L Potassium (3.6-5.0) mmol/L Chloride (101-111) mmol/L Carbon Dioxide (21.0-31.0) mmol/L Anion Gap BUN (7-18) mg/dL Creatinine (0.6-1.3) mg/dL Est Cr Clr Drug Dosing mL/min Estimated GFR (MDRD) BUN/Creatinine Ratio Glucose (74-105) mg/dL POC Glucose 72 L 115 H (83-110) mg/dl Calcium (8.4-10.2) mg/dl Phosphorus (2.5-4.6) mg/dL Magnesium (1.8-2.5) mg/dL Total Bilirubin (0.2-1.0) mg/dL AST (10-42) IU/L ALT (10-60) IU/L Alkaline Phosphatase (42-121) IU/L Troponin I (0.00-0.02) ng/ml Total Protein (6.7-8.2) g/dl Albumin (3.2-5.5) g/dl Globulin Albumin/Globulin Ratio TSH, Ultra Sensitive (0.45-5.33) uIu/mL Urine Color Dark yellow (YELLOW) Urine Appearance Clear (CLEAR) Urine pH 6.0 (5.0-9.0) Ur Specific [place] 1.020 (1.005-1.030) Urine Protein Negative (NEGATIVE) Urine Glucose (UA) Negative (NEGATIVE) Urine Ketones Trace H (NEGATIVE) Urine Occult Blood Negative (NEGATIVE) Urine Nitrite Negative (NEGATIVE) Urine Bilirubin Negative (NEGATIVE) Urine Urobilinogen 1.0 (0.2-1.0) mg/dL Ur Leukocyte Esterase Negative (NEGATIVE) 01/08/19 01/08/19 Range/Units 06:20 07:34 WBC (5.0-10.0) 10^3/uL RBC (4.6-6.2) 10^6/uL Hgb (14.0-18.0) g/dL Hct (40.0-54.0) % MCV (80-100) fL MCH (27.0-34.0) pg MCHC (33.0-35.0) g/dL Plt Count (150-450) 10^3/uL Neut % (Auto) (42.2-75.2) % Lymph % (Auto) (20.5-50.1) % [place] % (Auto) (2-8) % Eos % (Auto) (1.0-3.0) % Baso % (Auto) (0.0-1.0) % Sodium 138 (135-145) mmol/L Potassium 3.6 (3.6-5.0) mmol/L Chloride 106 (101-111) mmol/L Carbon Dioxide 23.0 (21.0-31.0) mmol/L Anion Gap 12.6 BUN 8 (7-18) mg/dL Creatinine 0.4 L (0.6-1.3) mg/dL Est Cr Clr Drug Dosing 154.59 mL/min Estimated GFR (MDRD) > 60 BUN/Creatinine Ratio Glucose 135 H (74-105) mg/dL POC Glucose 129 H (83-110) mg/dl Calcium 8.5 (8.4-10.2) mg/dl Phosphorus 3.8 (2.5-4.6) mg/dL Magnesium 1.9 (1.8-2.5) mg/dL Total Bilirubin (0.2-1.0) mg/dL AST (10-42) IU/L ALT (10-60) IU/L Alkaline Phosphatase (42-121) IU/L Troponin I (0.00-0.02) ng/ml Total Protein (6.7-8.2) g/dl Albumin (3.2-5.5) g/dl Globulin Albumin/Globulin Ratio TSH, Ultra Sensitive (0.45-5.33) uIu/mL Urine Color (YELLOW) Urine Appearance (CLEAR) Urine pH (5.0-9.0) Ur Specific [place] (1.005-1.030) Urine Protein (NEGATIVE) Urine Glucose (UA) (NEGATIVE) Urine Ketones (NEGATIVE) Urine Occult Blood (NEGATIVE) Urine Nitrite (NEGATIVE) Urine Bilirubin (NEGATIVE) Urine Urobilinogen (0.2-1.0) mg/dL Ur Leukocyte Esterase (NEGATIVE) Med Orders - Current: Current Medications Acetaminophen (Tylenol) 650 mg PO Q6H PRN PRN Reason: Pain Last Admin: 01/07/19 19:47 Dose: 650 mg Cyanocobalamin (Vitamin B12) 1,000 mcg PO DAILY [facility] Last Admin: 01/08/19 09:19 Dose: 1,000 mcg Dextrose/Water (Dextrose 50% In Water) 25 ml IVPUSH ASDIRECTED PRN PRN Reason: Hypoglycemia Diphenhydramine HCl (Benadryl) 25 mg PO BEDTIME PRN PRN Reason: Itching Docusate Sodium (Colace) 100 mg PO DAILY PRN PRN Reason: Constipation Enoxaparin Sodium (Lovenox) 40 mg SUBCUT DAILY [facility] Last Admin: 01/08/19 09:20 Dose: 40 mg Glucagon (Glucagen) 1 mg IM ONETIME PRN PRN Reason: Hypoglycemia Insulin Human Lispro (Humalog) 0 unit SUBCUT ACBED [facility]; Protocol Last Admin: 01/08/19 07:55 Dose: Not Given Latanoprost (Xalatan 0.005% Ophth Soln) 0 ml EYEBOTH BEDTIME [facility] Last Admin: 01/07/19 21:31 Dose: 1 drop Losartan Potassium (Cozaar) 50 mg PO BEDTIME [facility] Last Admin: 01/07/19 21:30 Dose: 50 mg Lovastatin 40 Mg Tab (Own Med) 0 mg PO BEDTIME [facility] Last Admin: 01/07/19 21:30 Dose: 80 mg Metoprolol Succinate (Toprol Xl) 100mg * *Own Med 0 mg PO DAILY [facility] Last Admin: 01/08/19 09:19 Dose: 100 mg Prochlorperazine ( Compazine) 10 Mg Tab Own Med 0 mg PO DAILY [facility] Last Admin: 01/08/19 09:20 Dose: 10 mg Ondansetron HCl (Zofran Odt) 4 mg PO Q6H PRN PRN Reason: nausea, able to take PO Ondansetron HCl (Zofran) 4 mg IVPUSH Q6H PRN PRN Reason: Nausea/Vomiting Promethazine HCl (Phenergan) 25 mg PO Q6H PRN PRN Reason: nausea, able to take PO Promethazine HCl (Phenergan) 6.25 mg IM Q6H PRN PRN Reason: Nausea/Vomiting Discontinued Medications Sodium Chloride (Normal Saline) 1,000 mls @ 125 mls/hr IV ASDIRECTED [facility] Last Admin: 01/08/19 08:17 Dose: 125 mls/hr Pyridoxine HCl (Vitamin B6-Pyridoxine) 100 mg PO DAILY [facility] - Exam General: Alert, Oriented, Cooperative, No Acute Distress HEENT: Pupils Equal, Pupils Reactive Neck: Supple Lungs: Clear to Auscultation, Normal Respiratory Effort Cardiovascular: Regular Rate, Regular Rhythm, No Murmurs GI/Abdominal Exam: Normal Bowel Sounds, Soft, Non-Tender, No Distention Extremities: Normal Inspection, Non-Tender, No Pedal Edema Skin: Warm, Dry, Intact Neurological: No New Focal Deficit Psy/Mental Status: Alert, Normal Affect, Normal Mood - Problem List & Annotations (1) Vertigo SNOMED Code(s): 018482555 Code(s): R42 - DIZZINESS AND GIDDINESS Status: Acute Current Visit: Yes (2) Non-small cell lung cancer SNOMED Code(s): 350439223 Code(s): C34.90 - MALIGNANT NEOPLASM OF UNSP PART OF UNSP BRONCHUS OR LUNG Status: Acute Current Visit: No (3) Type 2 diabetes mellitus SNOMED Code(s): 48691945 Code(s): E11.9 - TYPE 2 DIABETES MELLITUS WITHOUT COMPLICATIONS Status: Acute Current Visit: No (4) Hyperlipidemia SNOMED Code(s): 22776244 Code(s): E78.5 - HYPERLIPIDEMIA, UNSPECIFIED Status: Acute Current Visit : No (5) Near syncope SNOMED Code(s): 728678499 Code(s): R55 - SYNCOPE AND COLLAPSE Status: Acute Current Visit: No - Problem List Review Problem List Initiated/Reviewed/Updated: Yes - My Orders Last 24 Hours: My Active Orders 01/07/19 15:00 Consult to Physical Therapy [PT Evaluation and Treatment] [CONS] Routine 01/07/19 15:17 Blood Glucose Check, Bedside [RC] QIDACANDBED Height and Weight [RC] UPON Intake and Output [RC] QSHIFT Oxygen Therapy [RC] PRN Up With Assistance [RC] ASDIRECTED VTE/DVT Education [RC] PER UNIT ROUTINE Vital Signs [RC] Q4HR Acetaminophen [Tylenol] 650 mg PO Q6H PRN Ondansetron [Zofran ODT] 4 mg PO Q6H PRN Ondansetron [Zofran] 4 mg IVPUSH Q6H PRN Promethazine [Phenergan] 25 mg PO Q6H PRN Promethazine [Phenergan] 6.25 mg IM Q6H PRN Resuscitation Status Routine 01/07/19 15:21 Docusate Sodium [Colace] 100 mg PO DAILY PRN diphenhydrAMINE [Benadryl] 25 mg PO BEDTIME PRN 01/07/19 15:35 Head wo Cont [CT] Routine 01/07/19 15:40 Diabetes Education [RC] Click to Edit Notify Provider [RC] PRN Dextrose 50% in Water 25 ml IVPUSH ASDIRECTED PRN Glucagon,Human Recombinant [GlucaGen] 1 mg IM ONETIME PRN 01/07/19 16:00 Insulin Lispro [HumaLOG] See Protocol SUBCUT ACBED 01/07/19 21:00 Latanoprost [Xalatan 0.005% Ophth Soln] 0 ml EYEBOTH BEDTIME Losartan [Cozaar] 50 mg PO BEDTIME Lovastatin [Lovastatin] 0 mg PO BEDTIME 01/07/19 Dinner Regular Diet [DIET] 01/08/19 09:00 Cyanocobalamin (Vitamin B12) [Vitamin B12] 1,000 mcg PO DAILY Enoxaparin [Lovenox] 40 mg SUBCUT DAILY Metoprolol Succinate [Toprol XL 100mg] 0 mg PO DAILY Prochlorperazine [Compazine] 0 mg PO DAILY 01/08/19 11:37 GLUCOSE,POC [POC] Routine - Plan Plan:: #Vertigo #Near syncope: uncertain etiology. Patient orthostatic by HR in the ED. - Trial of meclizine - Ambulate with assistance - PT/OT - IV fluid resuscitation - Follow up on CT brain - Monitor and replete electrolytes - TSH normal #HTN: BP at goal. 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 DM II: - Hold metformin and oral hypoglycemics - SSI with hypoglycemia protocol DVT PPx: Lovenox GI PPx: Diabetic diet Code status: Full Code.
[2019-01-08] MEDS: Acetaminophen 325 MG Tab PO PRN (12:45)
[2019-01-08] MEDS: Meclizine 12.5 MG Tab PO PRN (21:11)
[2019-01-08] MEDS: LOVASTATIN 40 MG PO SCH (21:12)
[2019-01-08] MEDS: Latanoprost 0.005% Ophth Soln 2.5 ML Bottle **OWN MED EYEBOTH SCH (21:13)
[2019-01-09] MEDS: Insulin Lispro 100 Units/ML 3 ML Vial SUBCUT SCH (08:18)
[2019-01-09] MEDS: CYANOCOBALAMIN 1000 MCG PO SCH (08:19)
[2019-01-09] MEDS: METOPROLOL SUCCINATE 100 MG PO SCH (08:20)
[2019-01-09] MEDS: Enoxaparin 40 MG/0.4 ML Syringe SUBCUT SCH (08:21)
[2019-01-09] MEDS: Meclizine 12.5 MG Tab PO PRN (08:41)
--- NOTE | 2019-01-09 10:09 | PCM.DCSUM1 ---
Discharge Summary - Hospital Course Free Text/Narrative:: Patient is a 78 y.o male with history of non-small cell lung cancer currently receiving treatments by Dr. Villalba, HTN, DLP, PAD, osteoarthritis, and chemotherapy-associated anemia who was admitted for dizziness and near syncope. He was orthostatic by heart rate in the ED. He received IV resuscitation. PT assessed patient. He reported tachycardia in the ED but tachycardia did not recur, monitored on telemetry throughout admission. He was started on meclizine. Dizziness did not recur post initiation of meclizine. PT/OT re- assessed today and patient did not have recurrence of symptoms. He was discharged home to follow up with PCP and his oncologist. HPI Initial Comments: Patient is a 78 y.o male with history of non-small cell lung cancer currently receiving treatments by Dr. Villalba, HTN, DLP, PAD, osteoarthritis, and chemotherapy-assoicated anemia who presented to the ED with complaints of dizziness x3 at home today and x2 in the ED. Reports that he gets dizzy with spinning sensation, sometimes the room and sometimes himself and the room spinning. States today his heart rate was in the 180s on his pulse ox device. He denies falls. Symptoms have been present for about a week. He denies chest pain, shortness of breath, n/v/d/c, dysuria, hematuria, melena, hematochezia, hematemesis, or hemoptysis. He denies night sweats, heat or cold intolerance, and unintended weight changes. He reports nocturia, stating he goes to the bathroom every hour at night. Quit tobacco and alcohol use in 2017. Denies illicit drug use Diagnosis: Stroke: No - Discharge Data Discharge Date: 01/09/19 Discharge Disposition: Home, Self-Care 01 Condition: Good - Discharge Diagnosis/Problem(s) (1) Vertigo SNOMED Code(s): 498220378 ICD Code: R42 - DIZZINESS AND GIDDINESS Status: Acute Current Visit: Yes (2) Non-small cell lung cancer SNOMED Code(s): 636807934 ICD Code: C34.90 - MALIGNANT NEOPLASM OF UNSP PART OF UNSP BRONCHUS OR LUNG Status: Acute Current Visit: No (3) Type 2 diabetes mellitus SNOMED Code(s): 73945177 ICD Code: E11.9 - TYPE 2 DIABETES MELLITUS WITHOUT COMPLICATIONS Status: Acute Current Visit: No (4) Hyperlipidemia SNOMED Code(s): 27214272 ICD Code: E78.5 - HYPERLIPIDEMIA, UNSPECIFIED Status: Acute Current Visit : No (5) Near syncope SNOMED Code(s): 345000065 ICD Code: R55 - SYNCOPE AND COLLAPSE Status: Acute Current Visit: No - Patient Summary/Data Consults: Consultations 01/07/19 15:00 Consult to Physical Therapy [PT Evaluation and Treatment] [CONS] Routine - Discharge Plan *PRESCRIPTION DRUG MONITORING PROGRAM REVIEWED*: Not Applicable *COPY OF PRESCRIPTION DRUG MONITORING REPORT IN PATIENT ELLEN: Not Applicable Prescriptions/Med Rec: Meclizine [Antivert] 12.5 mg PO TID PRN #30 tablet PRN Reason: Dizziness Home Medications: Home Meds Cyanocobalamin (Vitamin B-12) [Vitamin B-12] 1,000 mcg PO DAILY 05/14/18 [ History] Latanoprost/Pf [Latanoprost 0.005% Eye Drop] 1 drop EYEBOTH DAILY 05/14/18 [ History] Losartan [Cozaar] 50 mg PO BEDTIME 05/14/18 [History] Lovastatin 80 mg PO BEDTIME 05/14/18 [History] Metoprolol Succinate [Toprol XL 100mg] 100 mg PO DAILY 05/14/18 [History] Prochlorperazine [Compazine] 10 mg PO DAILY 05/14/18 [History] Pyridoxine HCl [Vitamin B-6] 100 mg PO DAILY 05/14/18 [History] glipiZIDE [Glucotrol] 10 mg PO BID 05/14/18 [History] metFORMIN HCl [Metformin HCl] 1,000 mg PO BID 05/14/18 [History] diphenhydrAMINE [Benadryl] 25 mg PO BEDTIME PRN 06/21/18 [History] Aspirin [Aspirin EC] 325 mg PO DAILY 06/22/18 [History] Docusate Sodium 100 mg PO DAILY PRN 09/11/18 [History] Meclizine [Antivert] 12.5 mg PO TID PRN #30 tablet 01/09/19 [Rx] - Discharge Summary/Plan Comment DC Time >30 min.: No - General Info Date of Service: 01/09/19 Admission Dx/Problem (Free Text: Admission Diagnosis/Problem Admission Diagnosis/Problem Dizziness Subjective Update: No acute events overnight. Reports that he has not had a recurrence of dizziness since yesterday. Denies chest pain, shortness of breath, f/c, n/v/d/c , dysuria, or any new complaints. - Patient Data Vitals - Most Recent: Last Vital Signs Temp 98.6 F 01/09/19 08:00 Pulse 74 01/09/19 08:00 Resp 18 01/09/19 08:00 BP 125/62 01/09/19 08:00 Pulse Ox 92 L 01/09/19 08:00 Weight - Most Recent: 155 lb 12.8 oz I&O - Last 24 hours: Intake & Output 01/08/19 01/09/19 01/09/19 22:59 06:59 14:59 Intake Total 930 370 Output Total 1000 375 Balance -70 -5 Lab Results - Last 24 hrs: Laboratory Results - last 24 hr 01/08/19 01/08/19 01/08/19 Range/Units 11:37 16:37 17:57 POC Glucose 152 H 83 130 H (83-110) mg/dl 01/08/19 01/09/19 Range/Units 20:30 07:56 POC Glucose 143 H 137 H (83-110) mg/dl Med Orders - Current: Current Medications Acetaminophen (Tylenol) 650 mg PO Q6H PRN PRN Reason: Pain Last Admin: 01/08/19 12:45 Dose: 650 mg Cyanocobalamin (Vitamin B12) 1,000 mcg PO DAILY [facility]ILA Last Admin: 01/09/19 08:19 Dose: 1,000 mcg Dextrose/Water (Dextrose 50% In Water) 25 ml IVPUSH ASDIRECTED PRN PRN Reason: Hypoglycemia Diphenhydramine HCl (Benadryl) 25 mg PO BEDTIME PRN PRN Reason: Itching Docusate Sodium (Colace) 100 mg PO DAILY PRN PRN Reason: Constipation Last Admin: 01/09/19 08:21 Dose: 100 mg Enoxaparin Sodium (Lovenox) 40 mg SUBCUT DAILY [facility] Last Admin: 01/09/19 08:21 Dose: 40 mg Glucagon (Glucagen) 1 mg IM ONETIME PRN PRN Reason: Hypoglycemia Insulin Human Lispro (Humalog) 0 unit SUBCUT ACBED [facility]; Protocol Last Admin: 01/09/19 08:18 Dose: Not Given Latanoprost (Xalatan 0.005% Ophth Soln) 0 ml EYEBOTH BEDTIME [facility] Last Admin: 01/08/19 21:13 Dose: 1 drop Losartan Potassium (Cozaar) 50 mg PO BEDTIME [facility] Last Admin: 01/08/19 21:13 Dose: 50 mg Meclizine HCl (Antivert) 12.5 mg PO TID PRN PRN Reason: Dizziness Last Admin: 01/09/19 08:41 Dose: 12.5 mg Lovastatin 40 Mg Tab (Own Med) 0 mg PO BEDTIME [facility] Last Admin: 01/08/19 21:12 Dose: 80 mg Metoprolol Succinate (Toprol Xl) 100mg * *Own Med 0 mg PO DAILY [facility] Last Admin: 01/09/19 08:20 Dose: 100 mg Prochlorperazine ( Compazine) 10 Mg Tab Own Med 0 mg PO DAILY [facility] Last Admin: 01/09/19 08:20 Dose: 10 mg Ondansetron HCl (Zofran Odt) 4 mg PO Q6H PRN PRN Reason: nausea, able to take PO Ondansetron HCl (Zofran) 4 mg IVPUSH Q6H PRN PRN Reason: Nausea/Vomiting Promethazine HCl (Phenergan) 25 mg PO Q6H PRN PRN Reason: nausea, able to take PO Promethazine HCl (Phenergan) 6.25 mg IM Q6H PRN PRN Reason: Nausea/Vomiting Discontinued Medications Sodium Chloride (Normal Saline) 1,000 mls @ 125 mls/hr IV ASDIRECTED [facility] Last Admin: 01/08/19 08:17 Dose: 125 mls/hr Pyridoxine HCl (Vitamin B6-Pyridoxine) 100 mg PO DAILY [facility] - Exam General: Reports: Alert, Oriented HEENT: Reports: Pupils Equal, Pupils Reactive, Mucous Membr. Moist/[place] Neck: Reports: Supple Lungs: Reports: Clear to Auscultation, Normal Respiratory Effort Cardiovascular: Reports: Regular Rate, Regular Rhythm GI/Abdominal Exam: Normal Bowel Sounds, Soft, Non-Tender, No Distention Extremities: Normal Inspection, Non-Tender, No Pedal Edema Skin: Reports: Warm, Dry, Intact Neurological: Reports: No New Focal Deficit Psy/Mental Status: Reports: Alert, Normal Affect, Normal Mood
== END 2019-01-09 11:20 | disposition home or self-care (01) ==
LOC: DL.ED 10:34 → DL.MS 14:52
PROVIDERS: ADMIT Internal Medicine; ATTEND Internal Medicine
DX: R42 Dizziness and giddiness (principal); C34.90 Malignant neoplasm of unspecified part of unspecified bronchus or lung; E11.9 Type 2 diabetes mellitus without complications; E78.5 Hyperlipidemia, unspecified; R55 Syncope and collapse; I10 Essential (primary) hypertension; M19.90 Unspecified osteoarthritis, unspecified site; J44.9 Chronic obstructive pulmonary disease, unspecified; E53.8 Deficiency of other specified B group vitamins; Z79.899 Other long term (current) drug therapy; Z79.84 Long term (current) use of oral hypoglycemic drugs; Z79.82 Long term (current) use of aspirin; Z88.8 Allergy status to other drugs, medicaments and biological substances; Z91.018 Allergy to other foods; Z87.891 Personal history of nicotine dependence
CPT/HCPCS: 36415; 70450; 80048; 80053; 81003; 82962; 83735; 84100; 84443; 84484; 85025; 93005; 97161; 99285; A9270; J1642; J1650; J1815; J7030

== ENCOUNTER 2019-02-08 20:57 | Emergency (ER) | payer MEDICARE, BC ==
[2019-02-08 22:28] LABS: ANION GAP 15.2; CHLORIDE,CL 101 mmol/L (101-111); SODIUM,NA 136 mmol/L (135-145)
[2019-02-08] MEDS: fentaNYL 100 MCG/2 ML SDV IVPUSH ONE (23:49)
[2019-02-08] MEDS: Lidocaine 2% Jelly 10 ML Urojet MUCMEM ONE (23:49)
--- NOTE | 2019-02-09 01:03 | EDM.PDOC ---
ED HPI GENERAL MEDICAL PROBLEM - General Chief Complaint: Gastrointestinal Problem Stated Complaint: IBS, BLEEDING, CANCER Time Seen by Provider: 02/08/19 21:40 Source of Information: Reports: Patient History Limitations: Reports: No Limitations - History of Present Illness INITIAL COMMENTS - FREE TEXT/NARRATIVE: c/o constipation, unable to have BM today, straining and now problems with hemorrhoids. Last normal BM at least 2 days prior no fever or chills. No vomiting, Hx stable lung cancer, Break in chemo this month. Appetite decreased this denisa, Ate lunch. Less fluids this afternoon and denisa since spending more time in bathroom. - Related Data Allergies Allergy/AdvReac Type Severity Reaction Status Date / Time enalapril Allergy Cough Verified 01/07/19 15:17 strawberry Allergy Hives Verified 01/07/19 15:17 Home Meds: Home Meds Cyanocobalamin (Vitamin B-12) [Vitamin B-12] 1,000 mcg PO DAILY 05/14/18 [ History] Latanoprost/Pf [Latanoprost 0.005% Eye Drop] 1 drop EYEBOTH DAILY 05/14/18 [ History] Losartan [Cozaar] 50 mg PO BEDTIME 05/14/18 [History] Lovastatin 80 mg PO BEDTIME 05/14/18 [History] Metoprolol Succinate [Toprol XL 100mg] 100 mg PO DAILY 05/14/18 [History] Prochlorperazine [Compazine] 10 mg PO DAILY 05/14/18 [History] Pyridoxine HCl [Vitamin B-6] 100 mg PO DAILY 05/14/18 [History] glipiZIDE [Glucotrol] 10 mg PO BID 05/14/18 [History] metFORMIN HCl [Metformin HCl] 1,000 mg PO BID 05/14/18 [History] diphenhydrAMINE [Benadryl] 25 mg PO BEDTIME PRN 06/21/18 [History] Aspirin [Aspirin EC] 325 mg PO DAILY 06/22/18 [History] Docusate Sodium 100 mg PO DAILY PRN 09/11/18 [History] Meclizine [Antivert] 12.5 mg PO TID PRN #30 tablet 01/09/19 [Rx] Rivaroxaban [Xarelto] 20 mg PO BEDTIME 02/08/19 [History] Past Medical History HEENT History: Reports: Glaucoma Other HEENT History: wears reading glasses Cardiovascular History: Reports: High Cholesterol, Hypertension Respiratory History: Reports: COPD Gastrointestinal History: Reports: None Genitourinary History: Reports: BPH Musculoskeletal History: Reports: None Neurological History: Reports: None Psychiatric History: Reports: None Endocrine/Metabolic History: Reports: Diabetes, Type II Hematologic History: Reports: B12 Deficiency Immunologic History: Reports: Immunosuppression Oncologic (Cancer) History: Reports: Lung Dermatologic History: Reports: None - Infectious Disease History Infectious Disease History: Reports: None - Past Surgical History Head Surgeries/Procedures: Reports: None HEENT Surgical History: Reports: None Cardiovascular Surgical History: Reports: None Respiratory Surgical History: Reports: None GI Surgical History: Reports: None Male Surgical History: Reports: None Endocrine Surgical History: Reports: None Neurological Surgical History: Reports: None Musculoskeletal Surgical History: Reports: None Oncologic Surgical History: Reports: None Dermatological Surgical History: Reports: None Social & Family History - Family History Family Medical History: Noncontributory - Tobacco Use Smoking Status *Q: Unknown Ever Smoked - Caffeine Use Caffeine Use: Reports: Coffee - Recreational Drug Use Recreational Drug Use: No ED ROS GENERAL - Review of Systems Review Of Systems: ROS reveals no pertinent complaints other than HPI. ED EXAM, GI/ABD - Physical Exam Exam: See Below Exam Limited By: No Limitations General Appearance: Alert, Anxious, Mild Distress Eyes: Bilateral: EOMI Ears: Normal External Exam Nose: Normal Inspection Throat/Mouth: Normal Inspection Head: Atraumatic, Normocephalic Neck: Normal Inspection Respiratory/Chest: No Respiratory Distress, Decreased Breath Sounds Cardiovascular: Normal Peripheral Pulses, Regular Rate, Rhythm GI/Abdominal Exam: Normal Bowel Sounds Rectal (Males) Exam: Hemorrhoids, Tenderness, Other (large amount formed stool rectal vault) Back Exam: Normal Inspection Extremities: Normal Inspection, Normal Range of Motion Neurological: Alert, Oriented, Normal Cognition Psychiatric: Normal Mood Skin Exam: Warm, Dry, Intact, Pallor Course - Vital Signs Last Recorded V/S: Last Vital Signs Temp 98.4 F 02/08/19 21:36 Pulse 84 02/08/19 21:36 Resp 20 02/08/19 21:36 BP 124/48 L 02/08/19 21:36 Pulse Ox 95 02/08/19 21:36 - Orders/Labs/Meds Orders: Active Orders 24 hr Category Date Time Status Enema [RC] ASDIRECTED Care 02/08/19 23:34 Active Labs: Laboratory Tests 02/08/19 02/08/19 Range/Units 22:02 22:02 WBC 14.0 H (5.0-10.0) 10^3/uL RBC 4.71 (4.6-6.2) 10^6/uL Hgb 11.7 L (14.0-18.0) g/dL Hct 37.5 L (40.0-54.0) % MCV 79.6 L (80-100) fL MCH 24.8 L (27.0-34.0) pg MCHC 31.2 L (33.0-35.0) g/dL Plt Count 324 (150-450) 10^3/uL Neut % (Auto) 92.3 H (42.2-75.2) % Lymph % (Auto) 2.9 L (20.5-50.1) % [place] % (Auto) 4.4 (2-8) % Eos % (Auto) 0.3 L (1.0-3.0) % Baso % (Auto) 0.1 (0.0-1.0) % Sodium 136 (135-145) mmol/L Potassium 4.2 (3.6-5.0) mmol/L Chloride 101 (101-111) mmol/L Carbon Dioxide 24.0 (21.0-31.0) mmol/L Anion Gap 15.2 BUN 14 (7-18) mg/dL Creatinine 0.7 (0.6-1.3) mg/dL Est Cr Clr Drug Dosing 85.50 mL/min Estimated GFR (MDRD) > 60 BUN/Creatinine Ratio 20.00 Glucose 238 H (74-105) mg/dL Calcium 8.9 (8.4-10.2) mg/dl Total Bilirubin 0.8 (0.2-1.0) mg/dL AST 18 (10-42) IU/L ALT 15 (10-60) IU/L Alkaline Phosphatase 60 (42-121) IU/L Total Protein 7.2 (6.7-8.2) g/dl Albumin 3.3 (3.2-5.5) g/dl Globulin 3.9 Albumin/Globulin Ratio 0.85 Meds: Medications Discontinued Medications Generic Name Dose Route Start Last Admin Trade Name Freq PRN Reason Stop Dose Admin Fentanyl 25 mcg 02/08/19 23:32 02/08/19 23:49 Sublimaze IVPUSH 02/08/19 23:33 25 mcg ONETIME ONE Administration Lidocaine HCl 10 ml 02/08/19 23:36 02/08/19 23:49 Xylocaine 2% Jelly MUCMEM 02/08/19 23:37 10 ml ONETIME ONE Administration - Re-Assessments/Exams Free Text/Narrative Re-Assessment/Exam: 02/09/19 05:36 Patient reports good results with enema and symptoms resolved. Departure - Departure Time of Disposition: 01:04 Disposition: Home, Self-Care 01 Condition: Good Clinical Impression: Constipation Qualifiers: Constipation type: slow transit constipation Qualified Code(s): K59.01 - Slow transit constipation Hemorrhoids Qualifiers: Hemorrhoid type: unspecified Qualified Code(s): K64.9 - Unspecified hemorrhoids - Discharge Information *PRESCRIPTION DRUG MONITORING PROGRAM REVIEWED*: No *COPY OF PRESCRIPTION DRUG MONITORING REPORT IN PATIENT ELLEN: No Instructions: Constipation, Adult, [id number] Referrals: Avery Mejia MD [Primary Care Provider] - Forms: ED Department Discharge Additional Instructions: increase fiber in diet miralax one capful daily as needed for constipation continue current medications follow up if symptoms worsen - My Orders Last 24 Hours: My Active Orders 02/08/19 23:34 Enema [RC] ASDIRECTED - Assessment/Plan Last 24 Hours: My Active Orders 02/08/19 23:34 Enema [RC] ASDIRECTED
== END 2019-02-09 01:32 | disposition home or self-care (01) ==
LOC: DL.ED 20:57
DX: K59.01 Slow transit constipation (principal); K64.9 Unspecified hemorrhoids; E11.9 Type 2 diabetes mellitus without complications; C34.90 Malignant neoplasm of unspecified part of unspecified bronchus or lung; Z79.82 Long term (current) use of aspirin; Z91.018 Allergy to other foods; Z88.8 Allergy status to other drugs, medicaments and biological substances; Z79.84 Long term (current) use of oral hypoglycemic drugs
CPT/HCPCS: 36415; 74019; 80053; 85025; 96374; 99284; J3010

== ENCOUNTER 2019-04-11 11:17 | Emergency (ER) | payer MEDICARE, BC ==
[~2019-04-11 11:17] MED LIST: Albuterol/Ipratropium 3.0-0.5 MG/3 ML Neb Soln ONE
[2019-04-11] MEDS ORDERED: Adenosine 6 MG/2 ML SDV IVPUSH ONE (11:21)
[2019-04-11 11:23] LABS: BASE EXCESS ARTERIAL -9 mmol/L ((-2)-(+3)); BICARBONATE,ARTERIAL 15.3 mmol/L (22-26); O2 DELIVERY DEVICE BIPAP; O2 SATURATION ARTERIAL 99 % (95-100); PCO2 ARTERIAL 30 mmHg (35-45); PO2 ARTERIAL 161 mmHg (70-100)
[2019-04-11 11:26] LABS: ALLEN TEST pos; O2 FLOW RATE 50
[2019-04-11 11:43] LABS: CHLORIDE,CL 102 mmol/L (101-111); SODIUM,NA 134 mmol/L (135-145)
--- NOTE | 2019-04-11 11:51 | EDM.PDOC ---
ED HPI GENERAL MEDICAL PROBLEM - General Chief Complaint: Respiratory Problem Stated Complaint: RESPIRATORY DISTRESS Time Seen by Provider: 04/11/19 11:17 Source of Information: Reports: Patient, EMS History Limitations: Reports: Respiratory Distress - History of Present Illness INITIAL COMMENTS - FREE TEXT/NARRATIVE: This 78 yo male patient was brought to the ED by [facility] due to increased difficulties breathing. The patient reports his symptoms started with an increased cough 3 days ago. Today, the patient reports he was having a hard time catching his breath. The patient reports a history of small cell lung cancer. The patient has discontinued treatment of his lung cancer. The patient does want to have CPR and intubation if his heart stops or he stops breathing. The patient reports he has been having difficulties swallowing since his cancer treatments. The patient initially presented to the ED with a heartrate in the 160's and a respiratory rate of 40. Onset Date: 04/08/19 Duration: Constant, Getting Worse Location: Reports: Chest Quality: Reports: Other Severity: Severe Worsens with: Reports: Movement Context: Reports: Other Associated Symptoms: Reports: cough w sputum, Shortness of Breath, Weakness - Related Data Allergies Allergy/AdvReac Type Severity Reaction Status Date / Time enalapril Allergy Cough Verified 04/11/19 11:12 strawberry Allergy Hives Verified 04/11/19 11:12 Home Meds: Home Meds Cyanocobalamin (Vitamin B-12) [Vitamin B-12] 1,000 mcg PO DAILY 05/14/18 [ History] Latanoprost/Pf [Latanoprost 0.005% Eye Drop] 1 drop EYEBOTH DAILY 05/14/18 [ History] Losartan [Cozaar] 50 mg PO BEDTIME 05/14/18 [History] Lovastatin 80 mg PO BEDTIME 05/14/18 [History] Metoprolol Succinate [Toprol XL 100mg] 100 mg PO DAILY 05/14/18 [History] Prochlorperazine [Compazine] 10 mg PO DAILY 05/14/18 [History] Pyridoxine HCl (Vitamin B6) [Vitamin B-6] 100 mg PO DAILY 05/14/18 [History] glipiZIDE [Glucotrol] 10 mg PO BID 05/14/18 [History] metFORMIN HCl [Metformin HCl] 1,000 mg PO BID 05/14/18 [History] diphenhydrAMINE [Benadryl] 25 mg PO BEDTIME PRN 06/21/18 [History] Aspirin [Aspirin EC] 325 mg PO DAILY 06/22/18 [History] Docusate Sodium 100 mg PO DAILY PRN 09/11/18 [History] Albuterol [Ventolin HFA] 2 puff INH Q6H PRN 04/11/19 [History] Dronabinol 5 mg PO BID 04/11/19 [History] Meclizine [Antivert] 25 mg PO TID PRN 04/11/19 [History] Ondansetron [Zofran Odt] 1 tab SL Q8H 04/11/19 [History] Pantoprazole [ProTONIX] 40 mg PO DAILY 04/11/19 [History] Polyethylene Glycol 3350 17 gm PO DAILY 04/11/19 [History] Warfarin [Coumadin] 3 mg PO DAILY 04/11/19 [History] Past Medical History HEENT History: Reports: Glaucoma Other HEENT History: wears reading glasses Cardiovascular History: Reports: High Cholesterol, Hypertension Respiratory History: Reports: COPD Gastrointestinal History: Reports: None Genitourinary History: Reports: BPH Musculoskeletal History: Reports: None Neurological History: Reports: None Psychiatric History: Reports: None Endocrine/Metabolic History: Reports: Diabetes, Type II Hematologic History: Reports: B12 Deficiency Immunologic History: Reports: Immunosuppression Oncologic (Cancer) History: Reports: Lung Dermatologic History: Reports: None - Infectious Disease History Infectious Disease History: Reports: None - Past Surgical History Head Surgeries/Procedures: Reports: None HEENT Surgical History: Reports: None Cardiovascular Surgical History: Reports: None Respiratory Surgical History: Reports: None GI Surgical History: Reports: None Male Surgical History: Reports: None Endocrine Surgical History: Reports: None Neurological Surgical History: Reports: None Musculoskeletal Surgical History: Reports: None Oncologic Surgical History: Reports: None Dermatological Surgical History: Reports: None Social & Family History - Family History Family Medical History: Noncontributory - Tobacco Use Smoking Status *Q: Former Smoker Used Tobacco, but Quit: Yes Month/Year Tobacco Last Used: 2016 - Caffeine Use Caffeine Use: Reports: Coffee - Recreational Drug Use Recreational Drug Use: No ED ROS GENERAL - Review of Systems Review Of Systems: Comprehensive ROS is negative, except as noted in HPI. ED EXAM, GENERAL - Physical Exam Exam: See Below Exam Limited By: No Limitations General Appearance: Alert, WD/WN, Severe Distress Eye Exam: Bilateral Eye: EOMI, Normal Inspection, PERRL Ears: Normal External Exam, Normal Canal, Hearing Grossly Normal, Normal TMs Nose: Normal Inspection, Normal Mucosa, No Blood Throat/Mouth: Normal Inspection, Normal Lips, Normal Teeth, Normal Gums, Normal Oropharynx, Normal Voice, No Airway Compromise Head: Atraumatic, Normocephalic Neck: Normal Inspection, Supple, Non-Tender, Full Range of Motion Respiratory/Chest: Respiratory Distress, Decreased Breath Sounds (throughout), Rhonchi (left side) Cardiovascular: Tachycardia GI/Abdominal: Normal Bowel Sounds, Soft, Non-Tender, No Organomegaly, No Distention, No Abnormal Bruit, No Mass (Male) Exam: Deferred Rectal (Males) Exam: Deferred Back Exam: Normal Inspection, Full Range of Motion, NT Extremities: Normal Inspection, Normal Range of Motion, Non-Tender, No Pedal Edema, Normal Capillary Refill Neurological: Alert, Oriented, CN II-XII Intact, Normal Cognition, Normal Gait, Normal Reflexes, No Motor/Sensory Deficits Psychiatric: Normal Affect, Normal Mood Skin Exam: Warm, Dry, Intact, Normal Color, No Rash Lymphatic: No Adenopathy Course - Vital Signs Last Recorded V/S: Last Vital Signs Temp 35.8 C 04/11/19 11:10 Pulse 157 H 04/11/19 11:25 Resp 28 H 04/11/19 11:10 BP 86/44 L 04/11/19 11:10 Pulse Ox 96 04/11/19 11:25 - Orders/Labs/Meds Orders: Active Orders 24 hr Category Date Time Status EKG Documentation Completion [RC] URGENT Care 04/11/19 11:12 Active Chest w Cont [CT] Urgent Exams 04/11/19 13:07 Ordered CULTURE BLOOD [BC] Stat Lab 04/11/19 11:11 Received CULTURE BLOOD [BC] Stat Lab 04/11/19 12:01 Ordered Labs: Laboratory Tests 04/11/19 04/11/19 04/11/19 Range/Units 11:11 11:11 11:11 WBC 14.9 H (5.0-10.0) 10^3/uL RBC 5.03 (4.6-6.2) 10^6/uL Hgb 11.7 L (14.0-18.0) g/dL Hct 36.6 L (40.0-54.0) % MCV 72.8 L D (80-100) fL MCH 23.3 L (27.0-34.0) pg MCHC 32.0 L (33.0-35.0) g/dL Plt Count 523 H D (150-450) 10^3/uL Neut % (Auto) 84.3 H (42.2-75.2) % Lymph % (Auto) 6.5 L (20.5-50.1) % Lyman % (Auto) 8.0 (2-8) % Eos % (Auto) 0.9 L (1.0-3.0) % Baso % (Auto) 0.3 (0.0-1.0) % PT (9.0-12.0) SEC INR (0.9-1.2) ABG pH (7.35-7.45) ABG pCO2 (35-45) mmHg ABG pO2 (70-100) mmHg ABG HCO3 (22-26) mmol/L ABG O2 Saturation (95-100) % ABG Base Excess ((-2)-(+3)) mmol/L Price Test O2 Delivery Device Oxygen Flow Rate Sodium 134 L (135-145) mmol/L Potassium 4.0 (3.6-5.0) mmol/L Chloride 102 (101-111) mmol/L Carbon Dioxide 19.0 L (21.0-31.0) mmol/L Anion Gap 17.0 BUN 9 (7-18) mg/dL Creatinine 0.7 (0.6-1.3) mg/dL Est Cr Clr Drug Dosing TNP Estimated GFR (MDRD) > 60 BUN/Creatinine Ratio 12.85 Glucose 285 H (74-105) mg/dL POC Glucose (83-110) mg/dl Lactic Acid 2.5 H (0.5-2.2) mmol/L Calcium 8.8 (8.4-10.2) mg/dl Total Bilirubin 0.7 (0.2-1.0) mg/dL AST 21 (10-42) IU/L ALT 13 (10-60) IU/L Alkaline Phosphatase 58 (42-121) IU/L Troponin I < 0.02 (0.00-0.02) ng/ml B-Natriuretic Peptide (0-100) pg/ml Total Protein 7.1 (6.7-8.2) g/dl Albumin 3.0 L (3.2-5.5) g/dl Globulin 4.1 Albumin/Globulin Ratio 0.73 04/11/19 04/11/19 04/11/19 Range/Units 11:11 11:11 11:16 WBC (5.0-10.0) 10^3/uL RBC (4.6-6.2) 10^6/uL Hgb (14.0-18.0) g/dL Hct (40.0-54.0) % MCV (80-100) fL MCH (27.0-34.0) pg MCHC (33.0-35.0) g/dL Plt Count (150-450) 10^3/uL Neut % (Auto) (42.2-75.2) % Lymph % (Auto) (20.5-50.1) % Lyman % (Auto) (2-8) % Eos % (Auto) (1.0-3.0) % Baso % (Auto) (0.0-1.0) % PT 16.1 H D (9.0-12.0) SEC INR 1.6 H (0.9-1.2) ABG pH 7.33 L (7.35-7.45) ABG pCO2 30 L (35-45) mmHg ABG pO2 161 H (70-100) mmHg ABG HCO3 15.3 L (22-26) mmol/L ABG O2 Saturation 99 (95-100) % ABG Base Excess -9 L ((-2)-(+3)) mmol/L Price Test pos O2 Delivery Device Bipap Oxygen Flow Rate 50 Sodium (135-145) mmol/L Potassium (3.6-5.0) mmol/L Chloride (101-111) mmol/L Carbon Dioxide (21.0-31.0) mmol/L Anion Gap BUN (7-18) mg/dL Creatinine (0.6-1.3) mg/dL Est Cr Clr Drug Dosing Estimated GFR (MDRD) BUN/Creatinine Ratio Glucose (74-105) mg/dL POC Glucose (83-110) mg/dl Lactic Acid (0.5-2.2) mmol/L Calcium (8.4-10.2) mg/dl Total Bilirubin (0.2-1.0) mg/dL AST (10-42) IU/L ALT (10-60) IU/L Alkaline Phosphatase (42-121) IU/L Troponin I (0.00-0.02) ng/ml B-Natriuretic Peptide 360 H (0-100) pg/ml Total Protein (6.7-8.2) g/dl Albumin (3.2-5.5) g/dl Globulin Albumin/Globulin Ratio 04/11/ Range/Units 11:31 WBC (5.0-10.0) 10^3/uL RBC (4.6-6.2) 10^6/uL Hgb (14.0-18.0) g/dL Hct (40.0-54.0) % MCV (80-100) fL MCH (27.0-34.0) pg MCHC (33.0-35.0) g/dL Plt Count (150-450) 10^3/uL Neut % (Auto) (42.2-75.2) % Lymph % (Auto) (20.5-50.1) % Lyman % (Auto) (2-8) % Eos % (Auto) (1.0-3.0) % Baso % (Auto) (0.0-1.0) % PT (9.0-12.0) SEC INR (0.9-1.2) ABG pH (7.35-7.45) ABG pCO2 (35-45) mmHg ABG pO2 (70-100) mmHg ABG HCO3 (22-26) mmol/L ABG O2 Saturation (95-100) % ABG Base Excess ((-2)-(+3)) mmol/L Price Test O2 Delivery Device Oxygen Flow Rate Sodium (135-145) mmol/L Potassium (3.6-5.0) mmol/L Chloride (101-111) mmol/L Carbon Dioxide (21.0-31.0) mmol/L Anion Gap BUN (7-18) mg/dL Creatinine (0.6-1.3) mg/dL Est Cr Clr Drug Dosing Estimated GFR (MDRD) BUN/Creatinine Ratio Glucose (74-105) mg/dL POC Glucose 261 H (83-110) mg/dl Lactic Acid (0.5-2.2) mmol/L Calcium (8.4-10.2) mg/dl Total Bilirubin (0.2-1.0) mg/dL AST (10-42) IU/L ALT (10-60) IU/L Alkaline Phosphatase (42-121) IU/L Troponin I (0.00-0.02) ng/ml B-Natriuretic Peptide (0-100) pg/ml Total Protein (6.7-8.2) g/dl Albumin (3.2-5.5) g/dl Globulin Albumin/Globulin Ratio Meds: Medications Discontinued Medications Generic Name Dose Route Start Last Admin Trade Name Jesus PRN Reason Stop Dose Admin Adenosine 6 mg 04/11/19 11:21 04/11/19 11:29 Adenocard IVPUSH 04/11/19 11:22 6 mg NOW ONE Administration Albuterol/Ipratropium Confirm 04/11/19 11:11 04/11/19 11:24 Duoneb 3.0-0.5 Mg/3 Ml Administered 04/11/19 11:12 3 ml Dose Administration 3 ml .ROUTE .STK-MED ONE Ceftriaxone Sodium 1 gm/ 50 mls @ 50 mls/hr 04/11/19 12:01 04/11/19 12:21 Sodium Chloride IV 04/11/19 13:00 50 mls/hr ONETIME ONE Administration Iopamidol 100 ml 04/11/19 13:07 04/11/19 13:41 [id number] (76%) IVPUSH 04/11/19 13:08 66 ml ONETIME ONE Administration - Re-Assessments/Exams Free Text/Narrative Re-Assessment/Exam: 04/11/19 11:54 With the patient in SVT at a rate of 167, the patient was given a dose of Adenosine (6 mg). The patient's heartrate dropped to the upper 90's and slowly crept up to the 130's. The patient reports feeling better with reduced shortness of breath. A second discussion with the patient and family ( and daughter) about his wishes resulted in the patient wanting to have both CPR if his heart stops and intubation if he stops breathing. Departure - Departure Time of Disposition: 15:44 Disposition: DC/Tfer to Acute Hospital 02 Condition: Serious Clinical Impression: Pleural effusion, right - Discharge Information *PRESCRIPTION DRUG MONITORING PROGRAM REVIEWED*: Not Applicable *COPY OF PRESCRIPTION DRUG MONITORING REPORT IN PATIENT ELLEN: Not Applicable Forms: Interfacility Transfer EMTALA Care Plan Goals: Discussed the patient's history, examination, labs, x-ray, CT and treatments with Dr. Banks ([facility] in [place]). Dr. Banks accepted the patient for continued evaluation and further management. The patient will be transported by [facility]. - My Orders Last 24 Hours: My Active Orders 04/11/19 11:11 CULTURE BLOOD [BC] Stat 04/11/19 11:12 EKG Documentation Completion [RC] URGENT 04/11/19 12:01 CULTURE BLOOD [BC] Stat 04/11/19 13:07 Chest w Cont [CT] Urgent - Assessment/Plan Last 24 Hours: My Active Orders 04/11/19 11:11 CULTURE BLOOD [BC] Stat 04/11/19 11:12 EKG Documentation Completion [RC] URGENT 04/11/19 12:01 CULTURE BLOOD [BC] Stat 04/11/19 13:07 Chest w Cont [CT] Urgent
[2019-04-11] MEDS ORDERED: cefTRIAXone 1 GM in Sodium Chloride 0.9% 50 ML IV ONE (12:01)
--- NOTE | 2019-04-11 12:01 | CR ---
EXAMINATION: Chest 1V Frontal SEX: Male AGE: 78 years CLINICAL HISTORY: 78-year-old male emergency department complaining of SHORT OF BREATH. INTERPRETATION: 1. Right supraclavicular central venous line, oxygen cannula and external child monitor leads. 2. [place] perihilar pulmonary vascular congestion increased since 06 January 2019 comparison film (chronic cardiomegaly). 3. Apparent asymmetric dependent new right pleural effusion but underlying right lower lobe infiltrate, atelectasis or infarct all in the differential consideration. 4. Left lung remains clear. CONCLUSION: Abnormal. Apparent interval fluid overload (dialysis patient? Myocardial infarction?) since December. Close clinical correlation please. BNP? Weight gain? EKG?
[2019-04-11] MEDS ORDERED: Iopamidol 755 Mg/ML 100 ML Bottle IVPUSH ONE (13:07)
== END 2019-04-11 16:29 ==
LOC: DL.ED 11:17
DX: J90 Pleural effusion, not elsewhere classified (principal); I10 Essential (primary) hypertension; E78.00 Pure hypercholesterolemia, unspecified; J44.9 Chronic obstructive pulmonary disease, unspecified; E11.9 Type 2 diabetes mellitus without complications; E53.8 Deficiency of other specified B group vitamins; H40.9 Unspecified glaucoma; Z87.891 Personal history of nicotine dependence; Z79.01 Long term (current) use of anticoagulants; Z79.82 Long term (current) use of aspirin; Z79.899 Other long term (current) drug therapy; Z88.8 Allergy status to other drugs, medicaments and biological substances; Z91.018 Allergy to other foods
CPT/HCPCS: 36415; 36600; 71045; 71260; 80053; 82803; 82962; 83605; 83880; 84484; 85025; 85610; 87040; 93005; 94640; 94660; 96365; 96375; 99284; 99285-25; J0153; J0696; J7050; J7620-GY; Q9967